=== PATIENT | female | born 1955 | race Caucasian/White ===

== ENCOUNTER → 2017-10-03 12:30 | Outpatient (CLI) | payer OTHER, SELFPAY ==
[2017-10-03 13:17] LABS: Absolute Lymphocyte Count 0.93 X10^3/ul (0.83-4.51); Absolute Neutrophil Count 17.3 X10^3/uL (2.0-7.7); Hematocrit 39.7 % (37-47); Hemoglobin 12.7 g/dl (12.0-15.0); Lymphocyte # 0.93 X10^3/ul (4.0); Lymphocyte % 4.8 % (19-41); Mean Corpuscular Hgb 28.3 pg (27.0-32.0); Mean Corpuscular Volume 88.4 fL (81-99); Mean Platelet Vol. 9.8 fl (6.2-12.0); Monocyte# 0.95 X10^3/uL; Neutrophil # 17.26 X10^3/uL (2.7-7.7); Platelet Count 227 K/mm3 (150-450); RBC Distribution Width CV 13.9 % (11.6-14.6); RBC Distribution Width SD 45.1 fl (35.1-43.9); Red Blood Count 4.49 M/mm3 (4.2-5.4); White Blood Count 19.2 K/mm3 (4.4-11.0)
[2017-10-03 13:18] LABS: POSITIVE COUNT NO; POSITIVE DIFFERENTIAL NO; POSITIVE MORPHOLOGY NO
[2017-10-03 13:32] LABS: ALB/GLOB Ratio 1.1 RATIO (0.9-2.4); AST(SGOT) 19 U/L (15-37); Alanine Aminotransfer ALT/SGPT 26 U/L (13-56); Albumin, Serum 3.9 g/dL (3.2-5.0); Alkaline Phosphatase 75 U/L (45-117); Anion Gap 8 (5-15); BUN 12 mg/dL (7-18); BUN/Creat Ratio 15.7 RATIO (10-20); Calcium,Total 8.9 mg/dL (8.5-10.1); Chloride 104 mmol/L (98-107); Creatinine, Serum 0.76 mg/dL (0.55-1.02); EST Glomerular Filtration Rate 81 mL/min (>60); Est Glom Filt Rate - Afr Amer 98 mL/min (>60); Globulin 3.7 g/dL (2.2-4.2); Glucose 118 mg/dL (74-106); Potassium 4.1 mmol/L (3.5-5.1); Protein, Total 7.6 g/dL (6.4-8.2); Sodium Level 137 mmol/L (136-145)
== END ==
PROVIDERS: Family Provider Family Medicine; PCP Family Medicine; Visit Provider Nurse Practitioner Adult Health
DX: R50.9 Fever, unspecified (principal)
CPT/HCPCS: 36415; 80053; 85025

== ENCOUNTER → 2017-10-03 17:18 | Emergency (ER) | payer OTHER, SELFPAY ==
[2017-10-03] VITALS (7 sets, daily range): BP systolic 111–135; BP diastolic 58–74; PULSE 83–90; RESP 20–30; TEMP 37.1–39.2; O2SAT 96–100; BMI 25.7
--- NOTE | 2017-10-03 17:44 | EKG12_ITS ---
Test Reason : SYNCOPE/POSS SEPSIS Blood Pressure : / mmHG Vent. Rate : 089 BPM Atrial Rate : 089 BPM P-R Int : 152 ms QRS Dur : 074 ms QT Int : 348 ms P-R-T Axes : 061 067 051 degrees QTc Int : 423 ms Normal sinus rhythm Normal ECG Confirmed by ERICA ARIZMENDI, SAVANNAH ([id number]), editorial manager DAVID NIEVES ([id number]) on 10/08/2017 1:37:33 PM Referred By: CODIE Confirmed By:SAVANNAH MALDONADO MD
--- NOTE | 2017-10-03 17:45 | CT_ITS ---
STUDY: CT ABDOMEN AND PELVIS WITH CONTRAST REASON FOR EXAM: Female, 62 years old. ABD PAIN RADIATION DOSAGE (If Supplied By Facility): CTDIvol = ( 11.74 ) mGy, DLP = ( 646.89 ) mGycm TECHNIQUE: Transaxial images were obtained from the dome of the diaphragm to the symphysis pubis with oral contrast. 100 ml of Isovue 300 contrast was administered. Sagittal and coronal images were reconstructed. Individualized dose optimization techniques were used for this CT. COMPARISON: None. FINDINGS: The visualized lung bases are unremarkable. The visualized portions of the heart are within normal limits. There is periportal edema noted. Normal gallbladder and extrahepatic biliary system. Normal spleen. Normal pancreas. Normal bilateral adrenal glands. Normal right kidney. Normal left kidney. Normal visualized stomach. Normal small intestine. Diffuse wall thickening and inflammation of the distal sigmoid colon and rectum. There is inflammatory fluid in the pelvis. Locules of free air visualized in the pelvis. No discrete abscess. There is non-visualization of the appendix. Normal abdominal aorta. Normal inferior vena cava. Normal retroperitoneum. Normal urinary bladder. Normal visualized uterus. Normal abdominal wall. There is endplate spondylosis of the vertebral body. CT/Abdomen/Pelvis WITH Contrast IMPRESSION: Diffuse wall thickening and inflammation of the distal sigmoid colon and rectum. This is consistent for sigmoid diverticulitis. There is inflammatory fluid in the pelvis. Locules of free air visualized in the pelvis. No discrete abscess. Electronically Signed: Gray Coreas MD at 20:43 EDT , Service support ,
--- NOTE | 2017-10-03 17:50 | RAD_ITS ---
STUDY: X-RAY CHEST REASON FOR EXAM: Female, 62 years old. Fever TECHNIQUE: Single AP portable view of the chest. COMPARISON: None. FINDINGS: The lungs are clear and expanded. There is no demonstrated pleural abnormality. Normal size heart. Normal mediastinum and kemar. Normal visualized pulmonary arteries. Normal visualized aortic arch and descending thoracic aorta. Normal visualized thoracic spine. Normal visualized ribs, clavicles, and shoulders. There is no demonstrated abnormality of the visualized soft tissue structures of the upper abdomen. RAD/Chest 1 View (Portable) IMPRESSION: Normal x-ray examination of the chest. Electronically Signed: Gray Coreas MD at 18:32 EDT , Service support ,
--- NOTE | 2017-10-03 18:04 | ED.DCSUM_ITS ---
- ER Visit Summary Date of Service: 10/03/17 Chief Complaint: Abdominal pain History of Present Illness: The patient is a 62 F presenting with abdominal pain which started yesterday. She states she has been dizzy with standing and passed out last night. She denies any injury from this. She went to see her primary care physician today. Outpatient blood work showed a white count of 19.5. She had a temperature up to 100.5. She has lower abdominal pain. Urine dip in the office was negative. She denies chest pain or shortness of breath. She has nausea with no vomiting. Denies diarrhea or constipation. Denies other complaints. Physical Examination: Vitals are stable. Patient is afebrile. Alert no acute distress. HEENT exam is unremarkable. Neck is supple. Lungs are clear and equal bilaterally. Heart is regular rate and rhythm. Abdomen is soft right and left lower quadrant tenderness with no rebound or guarding Extremities are unremarkable. Skin is warm and dry. No focal neurologic deficit. Remainder of exam is unremarkable. Emergency Department Course and Treatment: Patient given IV fluids, morphine, Phenergan, Tylenol. CBC shows white count 21.0. Chemistries unremarkable other than glucose 135. Liver enzymes show total bili 2.2, direct bili 0.45. Lipase is 72. Urinalysis shows ketones. Troponin is negative. Lactic acid is 2.1. Chest x-ray shows no acute process. CT abdomen pelvis shows diffuse wall thickening and inflammation of the distal sigmoid colon and rectum. This is consistent for sigmoid diverticulitis. There is inflammatory fluid in the pelvis. Locules of free air visualized in the pelvis. No discrete abscess. There is periportal edema noted. Discussed with Dr. Hernandez. Due to her elevated total bili and periportal edema she feels that she may need an ERCP as well. This is not available and she suggests transfer to tertiary care center. She was given Zosyn IV. Patient requests [facility]. Discussed with Carsondaniela alberts and she will be transferred. Disposition: Transfer [facility] Impression: Perforated diverticulitis This note was generated with [employer] dictation software. It may contain incorrect words, spelling, and punctuation that were not noted in review of the chart prior to signing ED Disposition - Plan for ED Patient: Chief Complaint: Syncope Referrals: Jojo Ray MD [Primary Care Provider] -
[2017-10-03] MEDS: Acetaminophen 500 MG Tablet 1000 MG PO (18:06)
[2017-10-03] MEDS: proMETHazine 25 MG/ML Syringe 6.25 MG IV (18:07)
[2017-10-03] MEDS: 0.9% Normal Saline 1,000 ML 1000 ML IV (18:07)
[2017-10-03 18:10] LABS: Absolute Lymphocyte Count 0.92 X10^3/ul (0.83-4.51); Absolute Neutrophil Count 18.8 X10^3/uL (2.0-7.7); Basophil# 0.01 X10^3/uL; Eosinophil# 0.01 X10^3/uL; Hematocrit 40.4 % (37-47); Hemoglobin 12.8 g/dl (12.0-15.0); Lymphocyte # 0.92 X10^3/ul (4.0); Lymphocyte % 4.4 % (19-41); Mean Corp Hgb Conc 31.7 g/gl (32-36); Mean Corpuscular Hgb 27.9 pg (27.0-32.0); Mean Platelet Vol. 9.4 fl (6.2-12.0); Monocyte# 1.15 X10^3/uL; Monocyte% 5.5 % (0-10); Neutrophil # 18.83 X10^3/uL (2.7-7.7); Neutrophil % 89.9 % (47-70); Platelet Count 215 K/mm3 (150-450); RBC Distribution Width CV 13.8 % (11.6-14.6); RBC Distribution Width SD 44.6 fl (35.1-43.9); Red Blood Count 4.59 M/mm3 (4.2-5.4)
[2017-10-03 18:20] LABS: POSITIVE COUNT NO; POSITIVE DIFFERENTIAL NO; POSITIVE MORPHOLOGY NO
[2017-10-03 18:39] LABS: AST(SGOT) 16 U/L (15-37); Alanine Aminotransfer ALT/SGPT 25 U/L (13-56); Albumin, Serum 3.7 g/dL (3.2-5.0); Alkaline Phosphatase 72 U/L (45-117); Anion Gap 11 (5-15); BUN 11 mg/dL (7-18); BUN/Creat Ratio 11.9 RATIO (10-20); Bilirubin, Direct 0.45 mg/dL (0.00-0.30); Calcium,Total 8.6 mg/dL (8.5-10.1); Chloride 103 mmol/L (98-107); Creatinine, Serum 0.92 mg/dL (0.55-1.02); EST Glomerular Filtration Rate 65 mL/min (>60); Est Glom Filt Rate - Afr Amer 79 mL/min (>60); Estimated Creatinine Clearance 44.96 ml/min; Globulin 3.9 g/dL (2.2-4.2); Glucose 135 mg/dL (74-106); Lipase 72 U/L (73-393); Potassium 3.8 mmol/L (3.5-5.1); Protein, Total 7.6 g/dL (6.4-8.2); Sodium Level 139 mmol/L (136-145)
--- NOTE | 2017-10-03 18:39 | ED.RN ---
PT REFUSING MORPHINE AT THIS TIME. DRINKING CT CONTRAST WITH NO DIFF OBS.
[2017-10-03 18:40] LABS: Lactic Acid 2.1 mmol/L (0.4-2.0)
[2017-10-03] MEDS: 0.9% Normal Saline 1,000 ML 999 ML IV (19:01)
[2017-10-03 19:20] LABS: Bacteria 0 SEEN /hpf (None Seen); Mucous, Urine 0 SEEN /hpf (<or=2+)
[2017-10-03 19:22] LABS: Color, Urine Yellow (Yellow); Glucose, Dipstick Normal (Normal); Leukocyte Esterase-Dipstick 25 /ul (Negative); Nitrite-Dipstick Negative (Negative); Occult Blood-Urine 10 /ul (Negative); Protein-Dipstick 15 mg/dl (Negative); Specific Gravity, Urine 1.015 (1.002-1.030); Urine Bilirubin Dipstick Negative (Negative); Urine Clarity Sl. Cloudy (Clear); Urine Urobilinogen Normal (Normal)
[2017-10-03 19:24] LABS: Ketone-Dipstick 150 mg/dl (Negative)
[2017-10-03 19:40] LABS: Red Blood Cells-Urine 0-5 SEEN /hpf (0-5); Squamous Epithelial Cells - UA 0-5 SEEN /hpf (5-10); White Blood Cells 0-5 SEEN /hpf (0-5)
[2017-10-03] MEDS: Ciprofloxacin 400 MG/200 ML BAG 200 MG IV (21:41)
[2017-10-03 21:59] LABS: Reflex Lactate? Y
[2017-10-03] MEDS: Morphine 2 MG/ML Syringe IV (22:37)
--- NOTE | 2017-10-03 22:56 | ED.RN ---
PT LEFT ER VIA [facility] AT [id number]. UNABLE TO REMOVE FROM TRACKER
== END ==
PROVIDERS: Emergency Provider Emergency Medicine; Family Provider Family Medicine; PCP Family Medicine
DX: K57.92 Diverticulitis of intestine, part unspecified, without perforation or abscess without bleeding (principal); I10 Essential (primary) hypertension
CPT/HCPCS: 71045; 74177; 80048; 80076; 81001; 83605; 83690; 84484; 85025; 93005; 99284; J7030; Q9967; A4216; J0744

== ENCOUNTER → 2018-07-18 07:27 | Outpatient (CLI) | payer OTHER, SELFPAY ==
--- NOTE | 2018-07-18 07:35 | US_ITS ---
STUDY: ABDOMINAL ULTRASOUND - RIGHT UPPER QUADRANT REASON FOR VISIT: Female, 63 years old. Hepatomegaly. TECHNIQUE: Ultrasound evaluation of the right upper quadrant was performed with real-time and static lundy-scale imaging. TECHNICAL QUALITY: Adequate. COMPARISON: CT of the abdomen and pelvis, October 03, 2017. FINDINGS: Liver: The liver measures 14.8 cm. There is normal echogenicity of the liver. The bile ducts are within normal limits. There is hepatic color flow. The direction of portal flow is hepatopetal. There is no demonstrated mass lesion. Gallbladder: Normal distended gallbladder. The gallbladder wall measures 2.3 mm. There is a negative sonographic Ye's sign. There is no pericholecystic fluid. 4 Common Bile Duct (C.B.D.): The common bile duct measures 4.2 mm. Pancreas: Normal size of the head, body and tail of the pancreas. There is normal echogenicity of the pancreas. There is no demonstrated pancreatic mass or cyst. Right Kidney: Normal size of the right kidney. The right kidney measures 10.0 cm. Normal renal cortex. The right cortex measures 1.3 cm. There is no demonstrated renal mass or cyst. There is no right hydronephrosis. US/Abdomen Limited IMPRESSION: 1. Normal size liver without mass or other abnormality. 2. Gallstones without acute cholecystitis. 3. Otherwise normal right upper quadrant ultrasound. Electronically Signed: Hernandez Wilcox DO at 8:12 EST Tel [phone], Service support ,
== END ==
PROVIDERS: Family Provider Family Medicine; PCP Family Medicine; Referring Provider Family Medicine; Visit Provider Family Medicine
DX: R16.0 Hepatomegaly, not elsewhere classified (principal)
CPT/HCPCS: 76705

== ENCOUNTER → 2019-08-10 14:09 | Outpatient (CLI) | payer OTHER, SELFPAY ==
[2017-10-03 17:19] VITALS: BMI 25.7
[2019-08-10 18:03] LABS: Anion Gap 8 (5-15); BUN 18 mg/dL (7-18); BUN/Creat Ratio 24.8 RATIO (10-20); Calcium,Total 8.9 mg/dL (8.5-10.1); Chloride 106 mmol/L (98-107); Creatinine, Serum 0.73 mg/dL (0.55-1.02); EST Glomerular Filtration Rate 85 mL/min (>60); Est Glom Filt Rate - Afr Amer 103 mL/min (>60); Glucose 69 mg/dL (74-106); Potassium 3.6 mmol/L (3.5-5.1); Sodium Level 140 mmol/L (136-145)
== END ==
PROVIDERS: PCP Family Medicine; Referring Provider Family Medicine; Visit Provider Family Medicine
DX: I10 Essential (primary) hypertension (principal)
CPT/HCPCS: 36415; 80048

== ENCOUNTER 2021-06-22 17:47 | Outpatient (CLI) | payer OTHER, SELFPAY | END 2021-06-22 23:59 | disposition short-term general hospital (02) | PROVIDERS: PCP Family Medicine; Visit Provider Family Medicine | DX: U07.1 COVID-19 (principal) | CPT/HCPCS: 87635; U0003; U0005 ==

== ENCOUNTER 2021-08-22 10:14 | Outpatient (CLI) | payer OTHER, SELFPAY ==
[2021-08-22 12:47] LABS: Anion Gap 6 (5-15); BUN 20 mg/dL (7-18); BUN/Creat Ratio 26.8 RATIO (10-20); Calcium,Total 9.8 mg/dL (8.5-10.1); Chloride 106 mmol/L (98-107); Creatinine, Serum 0.74 mg/dL (0.55-1.02); EST Glomerular Filtration Rate 82 mL/min (>60); Est Glom Filt Rate - Afr Amer 100 mL/min (>60); Glucose 97 mg/dL (74-106); Potassium 4.4 mmol/L (3.5-5.1); Sodium Level 140 mmol/L (136-145)
== END 2021-08-22 23:59 | disposition home or self-care (01) ==
LOC: MFPLAB 10:20
PROVIDERS: PCP Family Medicine; Referring Provider Family Medicine; Visit Provider Family Medicine
DX: I10 Essential (primary) hypertension (principal)
CPT/HCPCS: 36415; 80048

== ENCOUNTER → 2022-07-27 | Outpatient (CLI) | payer OTHER, SELFPAY ==
[2022-07-27 18:04] LABS: Anion Gap 9 (5-15); BUN 21 mg/dL (7-18); BUN/Creat Ratio 24.2 RATIO (10-20); Calcium,Total 9.2 mg/dL (8.5-10.1); Chloride 104 mmol/L (98-107); Creatinine, Serum 0.87 mg/dL (0.55-1.02); EST Glomerular Filtration Rate 69 mL/min (>60); Est Glom Filt Rate - Afr Amer 84 mL/min (>60); Glucose 92 mg/dL (74-106); Potassium 3.7 mmol/L (3.5-5.1); Sodium Level 140 mmol/L (136-145)
== END | disposition home or self-care (01) ==
LOC: MFPLAB 14:34
PROVIDERS: PCP Family Medicine; Visit Provider Family Medicine
DX: I10 Essential (primary) hypertension (principal)
CPT/HCPCS: 36415; 80048

== ENCOUNTER → 2022-10-11 | Outpatient (CLI) | payer OTHER, SELFPAY ==
[2022-10-11 10:38] LABS: AST(SGOT) 14 U/L (15-37); Alanine Aminotransfer ALT/SGPT 19 U/L (13-56); Albumin, Serum 3.8 g/dL (3.2-5.0); Alkaline Phosphatase 77 U/L (45-117); Anion Gap 4 (5-15); BUN 23 mg/dL (7-18); BUN/Creat Ratio 28.8 RATIO (10-20); Calcium,Total 9.3 mg/dL (8.5-10.1); Chloride 109 mmol/L (98-107); EST Glomerular Filtration Rate 76 mL/min (>60); Est Glom Filt Rate - Afr Amer 92 mL/min (>60); Ferritin 73 ng/mL (8-252); Globulin 3.7 g/dL (2.2-4.2); Glucose 100 mg/dL (74-106); Potassium 4.2 mmol/L (3.5-5.1); Protein, Total 7.5 g/dL (6.4-8.2); Sodium Level 141 mmol/L (136-145); Thyroid Stim Hormone (TSH) 1.85 uIU/mL (0.358-3.74)
[2022-10-11 10:44] LABS: Absolute Lymphocyte Count 1.25 X10^3/uL (0.83-4.51); Absolute Neutrophil Count 6.7 X10^3/uL (2.0-7.7); Basophil# 0.02 X10^3/uL; Basophil% 0.2 % (0-1); Eosinophils% 2.3 % (0-5); Hematocrit 42.9 % (37-47); Hemoglobin 13.5 g/dL (12.0-15.0); Lymphocyte # 1.25 X10^3/ul (0.83-4.51); Lymphocyte % 14.4 % (19-41); Mean Corp Hgb Conc 31.5 g/dL (32-36); Mean Corpuscular Hgb 28.6 pg (27.0-32.0); Mean Corpuscular Volume 90.9 fL (81-99); Monocyte# 0.48 X10^3/uL; Monocyte% 5.5 % (0-10); NRBC Flagged by Analyzer 0 % (0-5); Neutrophil % 77.4 % (47-70); Platelet Count 236 K/mm3 (150-450); RBC Distribution Width CV 13.8 % (11.6-14.6); RBC Distribution Width SD 46.9 fl (35.1-43.9); Red Blood Count 4.72 M/mm3 (4.2-5.4); White Blood Count 8.7 K/mm3 (4.4-11.0)
[2022-10-12 04:08] LABS: Thyroid Peroxidase AB 12 IU/mL (0-34)
== END | disposition home or self-care (01) ==
PROVIDERS: PCP Family Medicine; Referring Provider Physician Assistant; Visit Provider Physician Assistant
DX: L66.9 Cicatricial alopecia, unspecified (principal); L57.8 Other skin changes due to chronic exposure to nonionizing radiation; L82.1 Other seborrheic keratosis; L81.4 Other melanin hyperpigmentation; Z08 Encounter for follow-up examination after completed treatment for malignant neoplasm; Z85.828 Personal history of other malignant neoplasm of skin; D18.01 Hemangioma of skin and subcutaneous tissue; Z71.89 Other specified counseling; L90.5 Scar conditions and fibrosis of skin; L57.0 Actinic keratosis; D48.5 Neoplasm of uncertain behavior of skin; L65.9 Nonscarring hair loss, unspecified
CPT/HCPCS: 36415; 80053; 82728; 84443; 85025; 86038; 86376

== ENCOUNTER → 2022-11-30 | Outpatient (CLI) | payer OTHER, SELFPAY ==
--- NOTE | 2022-11-30 09:48 | RAD_ITS ---
STUDY: X-RAY - RIGHT FOOT CLINICAL: Female, 67 years old. Pain over 4th adn 5th MT. injury TECHNIQUE: 3 view(s) of the foot. COMPARISON: None. FINDINGS: Normal talus, calcaneus, and tarsal bones. Normal visualized subtalar, talonavicular, calcaneocuboid, tarsal and tarsometatarsal articulations. There are nondisplaced transverse fracture at the base of the fifth metatarsal. Normal metatarsophalangeal joint of the great toe. Normal tibial and fibular sesamoid bones. Normal interphalangeal joint of the great toe. Normal phalanges of the great toe. Normal second through fifth metatarsophalangeal joints. Normal interphalangeal joints and phalanges of the lesser toes. Soft tissue swelling. RAD/Foot min 3 Views IMPRESSION: Nondisplaced fracture at the base of the fifth metatarsal with overlying soft tissue swelling. Electronically Signed: Ar De La Rosa MD at 11:00 EDT ,
== END | disposition home or self-care (01) ==
LOC: MTRAD 09:48
PROVIDERS: PCP Family Medicine; Referring Provider Family Medicine; Visit Provider Family Medicine
DX: M79.671 Pain in right foot (principal)
CPT/HCPCS: 73630

== ENCOUNTER → 2022-12-03 | Outpatient (CLI) | payer OTHER, SELFPAY ==
[2022-12-03 09:06] LABS: EXAGEN MAILED SPECIMEN
[2022-12-03 10:13] LABS: Color, Urine Yellow (Yellow); Erythrocyte Sedimentation Rate 4 mm/hr (0-30); Glucose, Dipstick Normal (Normal); Ketone-Dipstick Negative (Negative); Leukocyte Esterase-Dipstick 25 /ul (Negative); Nitrite-Dipstick Negative (Negative); Occult Blood-Urine 25 /ul (Negative); Protein-Dipstick Negative (Negative); Specific Gravity, Urine 1.005 (1.002-1.030); Urine Bilirubin Dipstick Negative (Negative); Urine Clarity Clear (Clear); Urine Urobilinogen Normal (Normal)
[2022-12-03 10:16] LABS: Absolute Neutrophil Count 7.1 X10^3/uL (2.0-7.7); Basophil# 0.04 X10^3/uL; Basophil% 0.5 % (0-1); Eosinophil# 0.21 X10^3/uL; Eosinophils% 2.4 % (0-5); Hematocrit 42.2 % (37-47); Hemoglobin 13.5 g/dL (12.0-15.0); Lymphocyte % 11.3 % (19-41); Mean Corpuscular Hgb 28.7 pg (27.0-32.0); Mean Corpuscular Volume 89.6 fL (81-99); Mean Platelet Vol. 10.1 fl (6.2-12.0); Monocyte# 0.51 X10^3/uL; Monocyte% 5.7 % (0-10); NRBC Flagged by Analyzer 0 % (0-5); Neutrophil % 79.9 % (47-70); Platelet Count 221 K/mm3 (150-450); RBC Distribution Width CV 13.3 % (11.6-14.6); RBC Distribution Width SD 44.1 fl (35.1-43.9); Red Blood Count 4.71 M/mm3 (4.2-5.4); White Blood Count 8.9 K/mm3 (4.4-11.0)
[2022-12-03 10:32] LABS: ALB/GLOB Ratio 0.9 RATIO (0.9-2.4); AST(SGOT) 16 U/L (15-37); Alanine Aminotransfer ALT/SGPT 17 U/L (13-56); Albumin, Serum 3.6 g/dL (3.2-5.0); Alkaline Phosphatase 74 U/L (45-117); Anion Gap 5 (5-15); BUN 19 mg/dL (7-18); BUN/Creat Ratio 22.6 RATIO (10-20); CRP < 2.90 mg/L (0.0-3.0); Calcium,Total 9.4 mg/dL (8.5-10.1); Chloride 106 mmol/L (98-107); Creatinine, Serum 0.84 mg/dL (0.55-1.02); EST Glomerular Filtration Rate 71 mL/min (>60); Est Glom Filt Rate - Afr Amer 86 mL/min (>60); Globulin 3.9 g/dL (2.2-4.2); Glucose 104 mg/dL (74-106); Protein, Total 7.5 g/dL (6.4-8.2); Sodium Level 139 mmol/L (136-145)
[2022-12-03 10:46] LABS: Protein, Urine (Random) < 6.0 mg/dL (<11.9)
== END | disposition home or self-care (01) ==
LOC: MTLAB 08:03
PROVIDERS: PCP Family Medicine; Referring Provider Internal Medicine Rheumatology; Visit Provider Internal Medicine Rheumatology
DX: M34.9 Systemic sclerosis, unspecified (principal); R76.8 Other specified abnormal immunological findings in serum; M19.041 Primary osteoarthritis, right hand; L65.9 Nonscarring hair loss, unspecified; I10 Essential (primary) hypertension
CPT/HCPCS: 36415; 80053; 81002; 82570; 84156; 85025; 85652; 86140

== ENCOUNTER → 2022-12-18 | Outpatient (CLI) | payer OTHER, SELFPAY ==
--- NOTE | 2022-12-18 07:58 | ECHOD_ITS ---
Reason For Study: Scleroderma, HTN Procedure This was a 2D Doppler, Color Flow transthoracic echocardiogram. Exam performed in department. Left Ventricle Normal LV size. Left ventricular systolic function is normal. The estimated ejection fraction is 60 %. No regional wall motion abnormalities noted. Right Ventricle Normal RV size. Normal systolic function. Atria Normal left atrium. Normal right atrium. Bubble contrast study negative for right to left interatrial shunt. Mitral Valve Normal mitral valve. Tricuspid Valve Normal tricuspid valve. Mild tricuspid valve insufficiency. Pulmonary artery systolic pressure is 22 mmHg. Aortic Valve Normal aortic valve. Trisinus/trileaflet aortic valve. Pulmonic Valve Normal pulmonic valve. Great Vessels Normal aortic root. The pulmonary artery is normal size. Normal inferior vena cava. Pericardium/Pleural No pericardial effusion. Medication 20 gauge I.V. with prn adaptor inserted into right arm. Performed a rapid injection of agitated mix of 9 cc saline and 1cc air to assess for atrial septal defect. MMode/2D Measurements & Calculations LVIDd: 4.2 cm IVSd: 0.98 cm Ao root diam: 2.7 cm LVIDs: 2.3 cm LVPWd: 0.91 cm LA dimension: 3.0 cm RVDd: 3.0 cm FS: 45.3 % LAV(MOD-bp): 45.4 ml LVAd ap4: 22.3 cm2 SV(MOD-sp4): 38.7 ml LAV(MOD-bp) Indexed: 30.2 ml/m2 LVLd ap4: 6.7 cm LAV(MOD-sp2): 45.0 ml EDV(MOD-sp4): 61.8 ml LAV(MOD-sp4): 42.3 ml EDV(sp4-el): 63.1 ml LVAs ap4: 12.0 cm2 LVLs ap4: 5.4 cm ESV(MOD-sp4): 23.1 ml ESV(sp4-el): 22.7 ml EF(MOD-sp4): 62.6 % EF(sp4-el): 64.0 % SV(sp4-el): 40.4 ml LA A4 area: 15.6 cm2 RA A4 area: 14.9 cm2 Time Measurements MV dec time: 0.23 sec Doppler Measurements & Calculations MV E max devonte: 66.7 cm/sec Lat Peak E' Devonte: 6.0 cm/sec Med Peak E' Devonte: 8.2 cm/sec MV A max devonte: 94.8 cm/sec E/E' lat: 11.2 E/E' med: 8.1 MV E/A: 0.70 MV V2 max: 135.7 cm/sec MV P1/2t max devonte: 91.8 cm/sec Ao V2 max: 136.8 cm/sec MV max P.4 mmHg MV P1/2t: 91.7 msec Ao max P.5 mmHg MV V2 mean: 61.3 cm/sec Ao V2 mean: 91.5 cm/sec MV mean P.9 mmHg MV dec slope: 293.3 cm/sec2 Ao mean P.9 mmHg MV V2 VTI: 40.3 cm MVA(P1/2t): 2.4 cm2 Ao V2 VTI: 33.3 cm AV (velocity ratio): 0.77 LV V1 max: 101.9 cm/sec PA V2 max: 106.8 cm/sec TR max devonte: 222.5 cm/sec LV V1 max P.2 mmHg PA V2 mean: 68.4 cm/sec TR max P.8 mmHg LV V1 mean P.4 mmHg LV V1 mean: 72.9 cm/sec LV V1 VTI: 25.7 cm ECHO/Echo Complete Interpretation Summary Normal LV size. Left ventricular systolic function is normal. The estimated ejection fraction is 60 %. Bubble contrast study negative for right to left interatrial shunt. Pulmonary artery systolic pressure is 22 mmHg. Ordering Physician: Suzy Lozano Referring Physician: Jojo Ray M.D. Performed By: Oleksandr Denise RCS
== END | disposition home or self-care (01) ==
LOC: CVS 07:57
PROVIDERS: PCP Family Medicine; Referring Provider Internal Medicine Rheumatology; Visit Provider Internal Medicine Rheumatology
DX: M34.9 Systemic sclerosis, unspecified (principal); I10 Essential (primary) hypertension
CPT/HCPCS: 93306; A4216

== ENCOUNTER → 2023-01-01 | Outpatient (CLI) | payer OTHER, SELFPAY ==
--- NOTE | 2023-01-01 14:22 | RAD_ITS ---
INDICATION: fu fracture EXAMINATION/TECHNIQUE: X-RAY - RIGHT XR Foot Min 3 Views 3 VIEWS COMPARISON: Right foot x-rays 11/30/2022 FINDINGS: BONES: Fracture at the base of the fifth metatarsal is not significantly changed. No displacement. No new fracture. Plantar calcaneal spur. JOINTS: No dislocation. SOFT TISSUES: Unremarkable. RAD/Foot min 3 Views IMPRESSION: Fracture base of the fifth metatarsal stable alignment. Electronically Signed: Carito Rowland MD at 4:04 EDT ,
== END | disposition home or self-care (01) ==
LOC: MTRAD 14:21
PROVIDERS: PCP Family Medicine; Referring Provider Family Medicine; Visit Provider Family Medicine
DX: S92.301A Fracture of unspecified metatarsal bone(s), right foot, initial encounter for closed fracture (principal); X58.XXXA Exposure to other specified factors, initial encounter
CPT/HCPCS: 73630

== ENCOUNTER → 2023-01-16 | Outpatient (CLI) | payer OTHER, SELFPAY ==
--- NOTE | 2023-01-16 09:35 | RAD_ITS ---
INDICATION: fu fracture EXAMINATION/TECHNIQUE: X-RAY - RIGHT XR Foot Min 3 Views 3 VIEWS COMPARISON: Right foot x-ray from 01/01/2023, 12/10/2022 FINDINGS: Redemonstration of nondisplaced fracture of the fifth metatarsal base with persistent fracture lines and no significant change from prior study. Persistent mild soft tissue swelling along the fifth digit. No new or acute findings. RAD/Foot min 3 Views IMPRESSION: No significant change in appearance of nondisplaced fifth metatarsal base fracture. Electronically Signed: Erik Rosales DO at 10:41 EDT ,
== END | disposition home or self-care (01) ==
PROVIDERS: PCP Family Medicine; Referring Provider Family Medicine; Visit Provider Family Medicine
DX: S92.353A Displaced fracture of fifth metatarsal bone, unspecified foot, initial encounter for closed fracture (principal)
CPT/HCPCS: 73630

== ENCOUNTER → 2023-04-30 | Outpatient (CLI) | payer OTHER, SELFPAY ==
[2023-04-30 17:26] LABS: Color, Urine Yellow (Yellow); Glucose, Dipstick Normal (Normal); Ketone-Dipstick Negative (Negative); Leukocyte Esterase-Dipstick 25 /ul (Negative); Nitrite-Dipstick Negative (Negative); Occult Blood-Urine Negative /ul (Negative); Protein-Dipstick Negative (Negative); Specific Gravity, Urine 1.015 (1.002-1.030); Urine Bilirubin Dipstick Negative (Negative); Urine Clarity Clear (Clear); Urine Urobilinogen Normal (Normal)
[2023-04-30 17:32] LABS: Absolute Lymphocyte Count 1.36 X10^3/uL (0.83-4.51); Absolute Neutrophil Count 6.4 X10^3/uL (2.0-7.7); Basophil# 0.03 X10^3/uL; Basophil% 0.3 % (0-1); Eosinophil# 0.24 X10^3/uL; Eosinophils% 2.8 % (0-5); Hematocrit 42.6 % (37-47); Lymphocyte # 1.36 X10^3/ul (0.83-4.51); Lymphocyte % 15.8 % (19-41); Mean Corp Hgb Conc 30.5 g/dL (32-36); Mean Corpuscular Hgb 28.2 pg (27.0-32.0); Mean Corpuscular Volume 92.4 fL (81-99); Mean Platelet Vol. 9.6 fl (6.2-12.0); Monocyte# 0.56 X10^3/uL; Monocyte% 6.5 % (0-10); NRBC Flagged by Analyzer 0 % (0-5); Neutrophil % 74.4 % (47-70); Platelet Count 247 K/mm3 (150-450); RBC Distribution Width SD 47.5 fl (35.1-43.9); Red Blood Count 4.61 M/mm3 (4.2-5.4); White Blood Count 8.6 K/mm3 (4.4-11.0)
[2023-04-30 17:36] LABS: Protein, Urine (Random) 7.8 mg/dL (<11.9); Protein:Creat Ratio 129 mg/g CRE (0-200)
[2023-04-30 18:15] LABS: AST(SGOT) 14 U/L (15-37); Alanine Aminotransfer ALT/SGPT 19 U/L (13-56); Albumin, Serum 3.8 g/dL (3.2-5.0); Alkaline Phosphatase 81 U/L (45-117); Anion Gap 2 (5-15); BUN 15 mg/dL (7-18); BUN/Creat Ratio 18.8 RATIO (10-20); Calcium,Total 9.2 mg/dL (8.5-10.1); Chloride 106 mmol/L (98-107); EST Glomerular Filtration Rate 76 mL/min (>60); Est Glom Filt Rate - Afr Amer 92 mL/min (>60); Globulin 3.9 g/dL (2.2-4.2); Glucose 102 mg/dL (74-106); Potassium 3.8 mmol/L (3.5-5.1); Protein, Total 7.7 g/dL (6.4-8.2); Sodium Level 139 mmol/L (136-145)
== END | disposition home or self-care (01) ==
LOC: MTLAB 14:50
PROVIDERS: PCP Family Medicine; Referring Provider Internal Medicine Rheumatology; Visit Provider Internal Medicine Rheumatology
DX: M34.9 Systemic sclerosis, unspecified (principal); R76.8 Other specified abnormal immunological findings in serum
CPT/HCPCS: 36415; 80053; 81002; 82570; 84156; 85025

== ENCOUNTER → 2023-09-06 | Outpatient (CLI) | payer OTHER, SELFPAY ==
[2023-09-06 12:57] LABS: Creatinine, Urine (random) < 13.00 mg/dL (NO RANGE EST.); Protein, Urine (Random) < 6.0 mg/dL (<11.9)
== END | disposition home or self-care (01) ==
LOC: MFPLAB 09:43
PROVIDERS: PCP Family Medicine; Visit Provider Family Medicine
DX: I10 Essential (primary) hypertension (principal)
CPT/HCPCS: 82570; 84156

== ENCOUNTER → 2023-10-07 | Outpatient (CLI) | payer OTHER, SELFPAY ==
--- NOTE | 2023-10-07 07:48 | BI_ITS ---
MAMMOGRAPHY - BILATERAL SCREENING REASON FOR EXAM: Female, 68 years old. Routine annual screening examination. PERTINENT HISTORY: Non-contributory. TECHNIQUE: Digital bilateral breast goran (3D mammographic acquisition) in the CC and MLO projections. 2-D mediolateral oblique (MLO) and craniocaudad (CC) views of both breasts were obtained. CAD: Full Field Digital Mammography with Computer Added Detection was performed. COMPARISON: Comparison is made with prior study August 13, 2016 and August 09, 2014. FINDINGS: Breast Composition: There are scattered areas of fibroglandular density. There are no dominant masses or suspicious calcifications. No other significant abnormalities are identified. There has been no significant change since the prior study. BI/SCRN MAMM (CAD)W/GORAN BILAT IMPRESSION: Stable bilateral screening mammogram. Yearly follow-up mammogram recommended. (A) ASSESSMENT CATEGORY: BIRADS Category 1: Negative. A letter regarding these results will be sent to the patient by the facility within 30 days. Approximately 10% of breast cancers are not detected by mammography. A normal mammogram should not delay biopsy of a clinically suspicious abnormality. [id number] Electronically Signed: Ar De La Rosa MD at 9:01 EDT ,
== END | disposition home or self-care (01) ==
LOC: OPBI 07:48
PROVIDERS: PCP Family Medicine; Referring Provider Family Medicine; Visit Provider Family Medicine
DX: Z12.31 Encounter for screening mammogram for malignant neoplasm of breast (principal)
CPT/HCPCS: 77063; 77067

== ENCOUNTER → 2023-11-18 | Outpatient (CLI) | payer OTHER, SELFPAY ==
--- NOTE | 2023-11-18 11:45 | RAD_ITS ---
STUDY: X-RAY - LEFT FOOT CLINICAL: Female, 68 years old. Left foot injury. TECHNIQUE: 3 views of the left foot. COMPARISON: None. FINDINGS: Intact talus, calcaneus, and tarsal bones. There is a plantar calcaneal spur. 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 Normal visualized subtalar, calcaneocuboid, tarsal and tarsometatarsal articulations. Normal metatarsi. Normal metatarsophalangeal joint of the great toe. Normal tibial and fibular sesamoid bones. Normal interphalangeal joint of the great toe. Normal phalanges of the great toe. Normal second through fifth metatarsophalangeal joints. Normal interphalangeal joints and phalanges of the lesser toes. The soft tissue structures are unremarkable. There is no demonstrated fracture. RAD/Foot min 3 Views IMPRESSION: Talonavicular arthrosis. Plantar calcaneal spur. Electronically Signed: Aristides Mejia MD at 10:16 EDT ,
== END | disposition home or self-care (01) ==
PROVIDERS: PCP Family Medicine; Referring Provider Family Medicine; Visit Provider Family Medicine
DX: M79.672 Pain in left foot (principal)
CPT/HCPCS: 73630

== ENCOUNTER → 2024-01-07 | Outpatient (CLI) | payer OTHER, SELFPAY ==
--- NOTE | 2024-01-07 14:46 | ECHOD_ITS ---
Reason For Study: Systemic Sclerosis Procedure This was a 2D Doppler, Color Flow transthoracic echocardiogram. Exam performed in department. Left Ventricle Normal LV size. The left ventricular ejection fraction is 65 %. Stage 1 diastolic dysfunction. No regional wall motion abnormalities noted. Right Ventricle Normal RV size. Normal systolic function. Atria Normal left atrium. Normal right atrium. Mitral Valve Normal mitral valve. Tricuspid Valve Normal tricuspid valve. Mild (1+) tricuspid valve insufficiency. Pulmonary artery systolic pressure is 26 mmHg. Aortic Valve Trisinus/trileaflet aortic valve. Pulmonic Valve Normal pulmonic valve. Great Vessels Normal aortic root. The pulmonary artery is normal size. Inferior vena cava collapse with respiration. Pericardium/Pleural No pericardial effusion. MMode/2D Measurements & Calculations LVIDd: 4.0 cm IVSd: 0.88 cm Ao root diam: 2.8 cm LVIDs: 2.3 cm LVPWd: 1.0 cm RVDd: 2.9 cm FS: 41.2 % LAV(MOD-bp): 30.1 ml LVAd ap4: 19.7 cm2 SV(MOD-sp4): 31.7 ml LAV(MOD-bp) Indexed: 20.1 ml/m2 LVLd ap4: 6.7 cm LAV(MOD-sp2): 37.1 ml EDV(MOD-sp4): 47.8 ml LAV(MOD-sp4): 24.6 ml EDV(sp4-el): 49.0 ml LVAs ap4: 9.9 cm2 LVLs ap4: 5.3 cm ESV(MOD-sp4): 16.2 ml ESV(sp4-el): 15.6 ml EF(MOD-sp4): 66.2 % EF(sp4-el): 68.2 % SV(sp4-el): 33.4 ml LA A4 area: 12.4 cm2 LA dimension(2D): 3.2 cm RA A4 area: 14.1 cm2 TAPSE: 3.3 cm Time Measurements MV dec time: 0.28 sec Doppler Measurements & Calculations MV E max devonte: 85.3 cm/sec Lat Peak E' Devonte: 8.5 cm/sec Med Peak E' Devonte: 8.9 cm/sec MV A max devonte: 104.4 cm/sec E/E' lat: 10.0 E/E' med: 9.6 MV E/A: 0.82 Ao V2 max: 189.0 cm/sec LV V1 max: 130.6 cm/sec MV dec slope: 309.9 cm/sec2 Ao max P.3 mmHg LV V1 max P.8 mmHg Ao V2 mean: 123.0 cm/sec LV V1 mean P.5 mmHg Ao mean P.1 mmHg LV V1 mean: 86.1 cm/sec Ao V2 VTI: 40.2 cm LV V1 VTI: 28.0 cm AV (velocity ratio): 0.70 PA V2 max: 85.5 cm/sec TR max devonte: 239.6 cm/sec TR max P.0 mmHg ECHO/Echo Complete Interpretation Summary Normal LV size. The left ventricular ejection fraction is 65 %. Stage 1 diastolic dysfunction. Structurally normal valves. Ordering Physician: Suzy Lozano Referring Physician: Jojo Ray Performed By: Priti Freeman, MILLA, RVT
[2024-01-07 15:59] LABS: Mucous, Urine 0 SEEN /hpf (<or=2+); Red Blood Cells-Urine 0 SEEN /hpf (0-5)
[2024-01-07 16:22] LABS: Absolute Lymphocyte Count 1.34 X10^3/uL (0.83-4.51); Absolute Neutrophil Count 8.6 X10^3/uL (2.0-7.7); Basophil# 0.02 X10^3/uL; Basophil% 0.2 % (0-1); Eosinophil# 0.14 X10^3/uL; Eosinophils% 1.3 % (0-5); Hemoglobin 13.1 g/dL (12.0-15.0); Lymphocyte # 1.34 X10^3/ul (0.83-4.51); Lymphocyte % 12.5 % (19-41); Mean Corp Hgb Conc 31.2 g/dL (32-36); Mean Corpuscular Hgb 27.9 pg (27.0-32.0); Mean Corpuscular Volume 89.4 fL (81-99); Mean Platelet Vol. 9.3 fl (6.2-12.0); Monocyte# 0.61 X10^3/uL; Monocyte% 5.7 % (0-10); NRBC Flagged by Analyzer 0 % (0-5); Neutrophil # 8.58 X10^3/uL (2.7-7.7); Neutrophil % 79.7 % (47-70); Platelet Count 238 K/mm3 (150-450); RBC Distribution Width CV 13.6 % (11.6-14.6); RBC Distribution Width SD 44.8 fl (35.1-43.9); White Blood Count 10.8 K/mm3 (4.4-11.0)
[2024-01-07 16:23] LABS: Color, Urine Yellow (Yellow); Glucose, Dipstick Normal (Normal); Ketone-Dipstick Negative (Negative); Leukocyte Esterase-Dipstick 100 /ul (Negative); Nitrite-Dipstick Negative (Negative); Occult Blood-Urine Negative /ul (Negative); Protein-Dipstick Negative (Negative); Specific Gravity, Urine 1.015 (1.002-1.030); Urine Bilirubin Dipstick Negative (Negative); Urine Clarity Clear (Clear); Urine Urobilinogen Normal (Normal)
[2024-01-07 16:35] LABS: Bacteria 2+ /hpf (None Seen)
[2024-01-07 16:36] LABS: Squamous Epithelial Cells - UA 0-5 SEEN /hpf (5-10); White Blood Cells 0-5 SEEN /hpf (0-5)
[2024-01-07 16:39] LABS: Protein, Urine (Random) 7.5 mg/dL (<11.9); Protein:Creat Ratio 196 mg/g CRE (0-200)
[2024-01-07 17:05] LABS: AST(SGOT) 15 U/L (15-37); Alanine Aminotransfer ALT/SGPT 19 U/L (13-56); Albumin, Serum 3.7 g/dL (3.2-5.0); Alkaline Phosphatase 82 U/L (45-117); Anion Gap 5 (5-15); BUN 17 mg/dL (7-18); BUN/Creat Ratio 21.3 RATIO (10-20); Calcium,Total 9.3 mg/dL (8.5-10.1); Chloride 106 mmol/L (98-107); EST Glomerular Filtration Rate 76 mL/min (>60); Est Glom Filt Rate - Afr Amer 92 mL/min (>60); Globulin 3.8 g/dL (2.2-4.2); Glucose 122 mg/dL (74-106); Protein, Total 7.5 g/dL (6.4-8.2); Sodium Level 140 mmol/L (136-145)
== END | disposition home or self-care (01) ==
PROVIDERS: PCP Family Medicine; Referring Provider Internal Medicine Rheumatology; Visit Provider Internal Medicine Rheumatology
DX: M34.9 Systemic sclerosis, unspecified (principal); R76.8 Other specified abnormal immunological findings in serum; M19.041 Primary osteoarthritis, right hand; L65.9 Nonscarring hair loss, unspecified; I10 Essential (primary) hypertension
CPT/HCPCS: 36415; 80053; 81001; 82570; 84156; 85025; 93306

== ENCOUNTER → 2024-08-17 | Outpatient (CLI) | payer MEDICARE, SELFPAY ==
[2024-08-17 10:28] LABS: Color, Urine Yellow (Yellow); Glucose, Dipstick Normal (Normal); Ketone-Dipstick Negative (Negative); Leukocyte Esterase-Dipstick 500 /ul (Negative); Nitrite-Dipstick Negative (Negative); Occult Blood-Urine 10 /ul (Negative); Protein-Dipstick 15 mg/dl (Negative); Specific Gravity, Urine 1.025 (1.002-1.030); Urine Bilirubin Dipstick Negative (Negative); Urine Clarity Clear (Clear); Urine Urobilinogen Normal (Normal)
[2024-08-17 10:39] LABS: Absolute Lymphocyte Count 1.26 X10^3/uL (0.83-4.51); Absolute Neutrophil Count 5.3 X10^3/uL (2.0-7.7); Basophil# 0.02 X10^3/uL; Basophil% 0.3 % (0-1); Eosinophil# 0.31 X10^3/uL; Eosinophils% 4.2 % (0-5); Hematocrit 42.3 % (37-47); Lymphocyte # 1.26 X10^3/ul (0.83-4.51); Mean Corp Hgb Conc 30.7 g/dL (32-36); Mean Corpuscular Hgb 27.7 pg (27.0-32.0); Mean Corpuscular Volume 90.2 fL (81-99); Mean Platelet Vol. 9.9 fl (6.2-12.0); Monocyte# 0.47 X10^3/uL; Monocyte% 6.4 % (0-10); NRBC Flagged by Analyzer 0 % (0-5); Neutrophil # 5.29 X10^3/uL (2.7-7.7); Neutrophil % 71.4 % (47-70); Platelet Count 250 K/mm3 (150-450); RBC Distribution Width CV 13.9 % (11.6-14.6); RBC Distribution Width SD 45.9 fl (35.1-43.9); Red Blood Count 4.69 M/mm3 (4.2-5.4); White Blood Count 7.4 K/mm3 (4.4-11.0)
[2024-08-17 15:32] LABS: ALB/GLOB Ratio 1.5 RATIO (0.9-2.4); AST(SGOT) 17 U/L (<=31); Alanine Aminotransfer ALT/SGPT 10 U/L (<=34); Albumin, Serum 4.2 g/dL (3.4-4.8); Alkaline Phosphatase 81 U/L (35-104); Anion Gap 12 (5-15); BUN 19 mg/dL (4-19); BUN/Creat Ratio 23.7 RATIO (10-20); Calcium,Total 9.1 mg/dL (7.6-11.0); Carbon Dioxide 23.1 mmol/L (21.0-32.0); Chloride 106 mmol/L (98-108); EST Glomerular Filtration Rate 79 (>60); Globulin 2.9 g/dL (2.2-4.2); Glucose 99 mg/dL (70-99); Potassium 4.5 mmol/L (3.3-5.1); Protein, Total 7.1 g/dL (5.9-8.4); Sodium Level 141 mmol/L (133-145); Total Bilirubin 0.62 mg/dL (0.00-1.30)
[2024-08-17 19:27] LABS: Protein, Urine (Random) 9.1 mg/dL (0.0-12.0); Protein:Creat Ratio 79 mg/g CRE (0-200)
== END | disposition home or self-care (01) ==
PROVIDERS: PCP Family Medicine; Referring Provider Internal Medicine Rheumatology; Visit Provider Internal Medicine Rheumatology
DX: M34.9 Systemic sclerosis, unspecified (principal); R76.8 Other specified abnormal immunological findings in serum
CPT/HCPCS: 36415; 80053; 81002; 82570; 84156; 85025

== ENCOUNTER → 2024-11-02 | Outpatient (CLI) | payer MEDICARE, SELFPAY ==
--- OUTSIDE RECORDS SUMMARY | 2024-11-02 22:52 | XMS RPT_ITS | CCD ---
Author Organization [facility] CliniSymd Care Team Providers Care Grinding Operator Name Role Phone LEUKHARDT, SANDRO H Unavailable Unavailable LEUKHARDT, SANDRO H Unavailable Unavailable MUAKKASSA, FARID DARVIN Unavailable Unavailabl e Jojo Ray Unavailable Unavailable LEUKHARDT, SANDRO H Unavailable Unavailable LEUKHARDT, SANDRO H Unavailable Unavailable MUAKKASSA, FARID F Unavailable Unavailable Roberto, Shelia Unavailable Unavailable Jojo Ray Unavailable Unavailable Dr. Jojo Ray Primary Care Provider Dr. Sandoval Egan Attending Provider Dr. Suzy Lozano Referring Provider Dr. Jojo Ray Primary Care Provider Dr. Sandoval Egan Attending Provider Dr. Jojo Ray Primary Care Provider Dr. Sandoval Egan Attending Provider Dr. Jojo Ray MD Primary Care Provider Dr. Suzy Lozano MD Attending Provider Dr. Suzy Lozano MD Referring Provider Dr. Jojo Ray MD Referring Provider Marisol Martin Attending Provider Jojo Ray Primary Care Unavailable Sandoval Egan Attending Unavailable Jojo Ray Primary Care Unavailable Ignacio Argueta Attending Unavailable Ignacio Argueta Referring Unavailable Jojo Ray Primary Care Unavailable Jolliff, Jojo S Referring Unavailable Roof Harry ARAUJO Attending Unavailable Marisol Nassar Attending Unavailable Jojo Ray Referring Unavailable Jojo Ray Primary Care Unavailable Jojo Ray Primary Care Unavailable Suzy Lozano Attending Unavailable Suzy Lozano Referring Unavailable Jojo Ray Primary Care Unavailable Suzy Lozano Attending Unavailable Suzy Lozano Referring Unavailable Allergies Allergy Classification Reported Allergen(s) Allergy Type Date of Onset Reaction(s) Facility (14 sources) amoxicillin; Translations: [AMOXICILLIN] Drug Allergy 10-03-2017 [facility], Rash [facility] Repository (14 sources) codeine; Translations: [CODEINE] Drug Allergy 10-03-2017 [facility], Unknown [facility] (14 sources) ibuprofen; Translations: [IBUPROFEN] Drug Allergy 10-03-2017 [facility], Swelling [facility] Medications Current Medications Medication Drug Class(es) Dates Sig (Normalized) Sig (Original) benazepril hydrochloride 20 mg / hydroCHLOROthiazide 12.5 mg oral tablet (11 sources) Thiazide Diuretic, Angiotensin Converting Enzyme Inhibitor Start: 10-03-2017 Benazepril-Hydroc hlorothiazide (Lotensin Hct 20-12.5 Mg Tablet) 1 EACH tablet Active 1 NMA PO DAILY October 03, 2017 12:00am calcium carbonate 1250 mg oral tablet (11 sources) Start: 10-03-2017 Calcium Carbonate (Os-Arash 500) 500 MG tablet Active 500 mg PO TWICE DAILY WITH MEALS October 03, 2017 12:00am doxycycline monohydrate 100 mg oral capsule (1 source) Tetracycline-cla ss Drug Start: 10-31-2024 take 1 capsule by mouth twice daily Doxycycline Monohydrate 100 mg capsule Active 100 mg PO TWICE A DAY 14 7 October 31, 2024 12:00am November 06, 2024 12:00am Multivitamin (Multiple Vitamins) 1 EACH tablet (11 sources) Start: 10-03-2017 take 1 tablet by mouth once daily Multivitamin (Multiple Vitamins) 1 EACH tablet Active 1 EACH PO DAILY October 03, 2017 5:35pm Start: 10-03-2017 take 1 tablet by ford th once daily Multivitamin (Multiple Vitamins) 1 EACH tablet Active 1 NMA PO DAILY October 03, 2017 12:00am Start: 10-03-2017 take 1 tablet by ford th once daily Multivitamin (Multiple Vitamins) 1 EACH tablet Active 1 EACH PO DAILY October 03, 2017 12:00am Start: 10-03-2017 take 1 tablet by ford th once daily Multivitamin (Multiple Vitamins) 1 EACH tablet Active 1 EACH PO DAILY October 02, 2017 11:00pm Completed/Discontinued Medications Medication Drug Class(es) Dates Sig (Normalized) Sig (Original) azithromycin 250 mg oral tablet (2 sources) Macrolide Antimicrobial Start: 04-05-2024 End: 10-31-2024 Azithromycin (Zithromax Z-Lyle) 250 mg tablet Discontinued 0 PO .COMPLEX 6 April 05, 2024 1:00am October 31, 2024 9:26am For 250 mg dose pack: take 500 mg today (day 1), then 250 mg for 4 days (days 2-5) PO Suprep Bowel Prep Kit 17.5-3.13-1.6 GM/177ML Oral Solution (2 sources) Start: 08-05-2019 Suprep Bowel Prep Kit 17.5-3.13-1.6 GM/177ML Oral Solution USE DIRECTED. Quantity: 2 Refills: 0 Shelia Mejia DO Start : 05-Aug-2019 Active 177 ML Bottle Problems Active Problems Problem Classification Problem Date Documented Date Episodic/Chronic Diverticulosis and diverticulitis (2 sources) Diverticulitis of large intestine with perforation and abscess without bleeding; Translations: [Diverticulitis of large intestine with perforation and abscess without bleeding] Onset: 10-04-2017 Chronic Other and unspecified benign neoplasm (2 sources) History of polyp of colon; Translations: [History of colon polyps] Episodic Skin and subcutaneous tissue infections (3 sources) Cellulitis; Translations: [Cellulitis, unspecified] Onset: 10-31-2024 10-31-2024 Episodic Systemic lupus erythematosus and connective tissue disorders (1 source) Systemic sclerosis, unspecified; Translations: [Systemic sclerosis, unspecified] Onset: 08-22-2024 Chronic Unclassified (1 source) Unknown / UNK(Unknown) Onset: 10-04-2017 Past or Other Problems Problem Classification Problem Date Documented Da te Episodic/Chronic Other connective tissue disease (1 source) Pain in left foot; Translations: [Pain in left foot] Onset: 11-22-2023 Episodic Other upper respiratory infections (3 sources) Upper respiratory infection; Translations: [Acute upper respiratory infection, unspecified] Onset: 04-05-2024 04-05-2024 Episodic Results Test Name Value Interpretation Reference Range Facility Urgent Care Visit Reporton 0 10-31-2024 Urgent Care Visit Report [facility] [address], [address] [place] [address] OFFICE VISIT Date of Service: 10/31/24 MR#: [id number] Acct: [id number] Name: LISSETH SANDHU Rep #: [id number] : 1955 Provider: LUIS Nassar Age/Sex: 69/F Location: [facility] Status: Signed Intake Vital Signs 04/05/24 09:27 10/31/24 09:28 Height 5 ft Weight: 117 lb BMI 22.8 BP 122/62 H 120/76 Blood Pressure Location Lt brachial Position Sitting Sitting Respiration 16 Pulse 97 67 Pulse Source Monitor Temp 97.7 F L 98.3 F Temp Source Oral Pulse Oximetry (%) 98 96 Oxygen Delivery Method room air room air Intake Visit Reasons: L LEG WOUND/CONCERN FOR INFECTION Accompanied by: Self Allergies amoxicillin Allergy (Verified 10/31/24 09:31) Rash codeine Allergy (Verified 10/31/24 09:31) Unknown ibuprofen Allergy (Verified 10/31/24 09:31) Swelling Medications ???Medication ???Instructions ???Recorded ???Confirmed ???Type benazepril 20 1 ea PO DAILY 10/03/17 04/05/24 Hi story mg-hydrochlorothiazide 12.5 mg tablet (Lotensin HCT) calcium carbonate (Oyster Shell 500 mg PO BIDCM 10/03/17 04/05/24 History Calcium 500) multivitamin (Multiple Vitamins 1 ea PO DAILY 10/03/17 04/05/24 Hi story tablet) doxycycline monohydrate 100 mg 100 mg PO BID 7 days #14 caps 12/1810/31/24 Rx capsule Have you fallen in the past year?: No Nurse's Note: Patient has a left leg wound that happen couple weeks ago. Patient states that she was mowing and her leg his a A frame wooden thing and that is what cut her leg. Patient states its hurts sometimes and it has drainage she can tell when she changes the bandaide and that its red and the end of the day it will be swollen. [facility] Social History Smoking Status: Never smoker HPI HPI Details: LISSETH SANDHU, is a 69 F who presents to the office today for leg wound -left leg- couple weeks ago- on rider mower- frame of swing set got to close to it and ran into the wood -red, drainage, swollen, painful -no fever or chills -tried so far otc atb ointment- aquaphor -not diabetic ROS Const Constitutional: Positive for other (ROS negative x6 except what was placed in HPI) Exam Const General: cooperative, healthy appearing, comfortable, no acute distress and well groomed Orientation: alert and oriented x3 Skin Other: -left anterior johnson with lidia size wound with clear to yellow drainage- very scant amount- scabbing noted around the edges. Surrounding tissue bright pink and warm -culture taken- then cleassed with normal saline, applied bacitracin oint and bandaid - tolerated fair Coding Level of Care Code Off vis,est,level 3 Diagnoses Cellulitis of left lower extremity L03.116 Laterality: left Site of cellulitis: extremity Site of cellulitis of extremity: lower extremity Assessment and Plan Assessment and Plan (1) Cellulitis: Status: Acute Qualifiers: Laterality: left Site of cellulitis: extremity Site of cellulitis of extremity: lower extremity Qualified Code(s): L03.116 - Cellulitis of left lower limb Plan: -take full course of atb even if feeling better- to prevent GI upset/yeast infection eat a yogurt daily or take an otc probiotic -keep clean and dry Please follow up with your Primary Care Physician for ongoing chronic problems. If symptoms change or worsen, please present to Emergency Room for further evaluation 1. See visit diagnoses, disposition, and orders. 2. Reviewed and updated medication list; Discussed probable diagnosis, test results if available in office today and management options with patient/guardian: agreed to the medical plan above 3. Education provided regarding visit today, see after visit summary. Instruction provided in the use of fluids, vaporizer, acetaminophen, and/or other OTC medication for symptom control. Explained use of antibiotics only for proven or strongly suspected bacterial infections. 4. Prevention and health maintenance with primary care provider. 5. Patient/guardian educated to proceed to ED with worsening of condition, changes, or failure to improve. Medications: New doxycycline monohydrate 100 mg PO BID 14 caps 0RF 7 days Clinical Quality Measures Falls Risk Screening/Assistive Devices Have you fallen in the past year?: No 10/31/24 0947 Date Marisol Nassar MOLDING CUTTER-C Cosigner Signature: Date (if applicable) CC: Normal [facility] Absolute lymphocyte countOrd ered By: Suzy Lozano on 08-17-2024 Lymphocytes Auto (Unsp spec) [#/Vol] 1.26 10*3/uL 0.83-4.51 [facility] Absolute neutrophil countOrd ered By: Suzy Lozano on 08-17-2024 Neutrophils (Bld) [#/Vol] 5.3 10*3/uL 2.0-7.7 [facility] Anion gap in Serum or Plasma Ordered By: Suzy Lozano on 08-17-2024 Anion gap [Moles/Vol] 12 mmol/L 5-15 [facility] Automated lymphocyte count a s percentage of total leukocytesOrdered By: Suzy Lozano on 08-17-2024 Lymphocytes/100 WBC Auto (Unsp spec) 17.0 % Low 19-41 [facility] BUN/creatinine ratioOrdered By: Suzy Lozano on 08-17-2024 Urea nitrogen/Creatinine [Mass ratio] 23.7 mg/mg High 10-20 [facility] Basophil percentageOrdered B y: Suzy Lozano on 08-17-2024 Basophils/100 WBC (Bld) 0.3 % 0-1 [facility] Bilirubin Test strip Ql (U)O rdered By: Suzy Lozano on 08-17-2024 Bilirubin Ql (U) Negative Negative [facility] Bilirubin, totalOrdered By: Suzy Lozano on 08-17-2024 Bilirubin [Mass/Vol] 0.62 mg/dL 0.00-1.30 [facility] CBC W/Diff, Automatedon 07-26 Absolute Lymph 1.26 X10 3/uL Normal 0.83-4.51 [facility] Comment on above: Performed By: #### L 500.4050, L501.0900, L4, L100.0100 #### [facility] Laboratory [address] [place], [address] Absolute Neut 5.3 X10 3/uL Normal 2.0-7.7 [facility] Comment on above: Performed By: #### L 500.4050, L501.09, L4, L100.0100 #### [facility] [address] [place], [address] Basophils/100 WBC (Bld) 0.3 % Normal 0-1 [facility] Comment on above: Performed By: #### L 500.4050, L501.09, L4, L100.0100 #### [facility] [address] [place], [address] Eosinophils/100 WBC (Bld) 4.2 % Normal 0-5 [facility] Comment on above: Performed By: #### L 500.4050, L501.09, L4, L100.0100 #### [facility] [address] [place], [address] Erythrocyte distribution width (RBC) [Ratio] 13.9 % Normal 11.6-14.6 [facility] Comment on above: Performed By: #### L 500.4050, L501.0900, L4, L100.0100 #### [facility] [address] [place], [address] Hematocrit (Bld) [Volume fraction] 42.3 % Normal 37-47 [facility] Comment on above: Performed By: #### L 500.4050, L501.0900, L4, L100.0100 #### [facility] [address], [address] Hemoglobin (Bld) [Mass/Vol] 13.0 g/dL Normal 12.0-15.0 [facility] Comment on above: Performed By: #### L 500.4050, L501.09, , L100.0100 #### [facility] [address] [place], [address] IG% 0.700 Normal 0.0-0.9 [facility] Comment on above: Result Comment: IG% - Immature Granulocytes (promyelocytes, myelocytes and metamyelocytes) > 1% indicates that a LEFT SHIFT is Present. Performed By: #### L 500.4050, L5.09, , L100.0100 #### [facility] [address] [place], [address] Lymphocytes/100 WBC (Bld) 17.0 % Low 19-41 [facility] Comment on above: Performed By: #### L 500.4050, L501.09, , L100.0100 #### [facility] [address] [place], [address] MCH (RBC) [Entitic mass] 27.7 pg Normal 27.0-32.0 [facility] Comment on above: Performed By: #### L 500.4050, L501.0900, L4, L100.0100 #### [facility] [address] [place], [address] MCHC (RBC) [Mass/Vol] 30.7 g/dL Low 32-36 [facility] Comment on above: Performed By: #### L 500.4050, L501.09, , L100.0100 #### [facility] [address] [place], [id number] MCV (RBC) [Entitic vol] 90.2 fL Normal 81-99 [facility] Comment on above: Performed By: #### L 500.4050, L501.0900, L400.2010, L100.0100 #### [facility] [address] [place], [id number] Monocytes/100 WBC (Bld) 6.4 % Normal 0-10 [facility] Comment on above: Performed By: #### L 500.4050, L501.0900, L4.2010, L100.0100 #### [facility] [address] [place], [id number] Neutrophils/100 WBC (Bld) 71.4 % High 47-70 [facility] Comment on above: Performed By: #### L 500.4050, L501.09, L4, L100.0100 #### [facility] [address] [place], [id number] Nucleated RBC (Bld) [#/Vol] 0 10*3/uL Normal 0-5 [facility] Comment on above: Performed By: #### L 500.4050, L501.0900, L400.2010, L100.0100 #### [facility] [address] [place], [id number] Platelet mean volume (Bld) [Entitic vol] 9.9 fL Normal 6.2-12.0 [facility] Comment on above: Performed By: #### L 500.4050, L501.0900, L400.2010, L100.0100 #### [facility] [address] [place], [id number] Platelets (Bld) [#/Vol] 250 10*3/uL Normal 150-450 [facility] Comment on above: Performed By: #### L 500.4050, L501.0900, L4, L100.0100 #### [facility] [address] [place], [address] RBC (Bld) [#/Vol] 4.69 10*6/uL Normal 4.2-5.4 [facility] Comment on above: Performed By: #### L 500.4050, L501.0900, L4.2010, L100.0100 #### [facility] [address] [place], [address] RDW SD 45.9 fl High 35.1-43.9 [facility] Comment on above: Performed By: #### L 500.4050, L501.0900, L4, L100.0100 #### [facility] [address] [place], [address] WBC (Bld) [#/Vol] 7.4 10*3/uL Normal 4.4-11.0 [facility] Comment on above: Performed By: #### L 500.4050, L501.09, L4, L100.0100 #### [facility] [address] [place], [address] Carbon dioxide, total [Moles /volume] in Central venous bloodOrdered By: Suzy Lozano on 08-17-2024 CO2 [Moles/Vol] 23.1 mmol/L 21.0-32.0 [facility] Chloride assayOrdered By: Som Lozano on 08-17-2024 Chloride [Moles/Vol] 106 mmol/L 98-108 [facility] Comprehensive Metabolic Prof ilon 08-17-2024 Albumin [Mass/Vol] 4.2 g/dL Normal 3.4-4.8 [facility] Comment on above: Performed By: #### L 500.4050, L501.0900, L4, L100.0100 ####[facility] [address] [place], [address] Albumin/Globulin [Mass ratio] 1.5 {ratio} Normal 0.9-2.4 [facility] Comment on above: Performed By: #### L 500.4050, L501.0900, L4, L100.0100 ####[facility] [address] [place], [address] ALK PHOS 81 U/L Normal 35-104 [facility] Comment on above: Performed By: #### L 500.4050, L501.09, L4, L100.0100 ####[facility] [address] [place], [address] ALT [Catalytic activity/Vol] 10 U/L Normal <=34 [facility] Comment on above: Performed By: #### L 500.4050, L501.09, , L100.0100 ####[facility] [address] [place], [address] AST [Catalytic activity/Vol] 17 U/L Normal <=31 [facility] Comment on above: Performed By: #### L 500.4050, L501.09, , L100.0100 ####[facility] [address] [place], [address] Bilirubin [Mass/Vol] 0.62 mg/dL Normal 0.00-1.30 [facility] Comment on above: Performed By: #### L 500.4050, L501.0900, L4, L100.0100 ####[facility] [address] [place], [address] BUN/CRE 23.7 RATIO High 10-20 [facility] Comment on above: Performed By: #### L 500.4050, L501.0900, L4, L100.0100 ####[facility] [address] [place], [address] Calcium [Mass/Vol] 9.1 mg/dL Normal 7.6-11.0 [facility] Comment on above: Performed By: #### L 500.4050, L501.0900, L400.2010, L100.0100 ####[facility] [address] [place], [address] Chloride [Moles/Vol] 106 mmol/L Normal 98-108 [facility] Comment on above: Performed By: #### L 500.4050, L501.0900, L400.2010, L100.0100 ####[facility] [address] [place], [address] CO2 [Moles/Vol] 23.1 mmol/L Normal 21.0-32.0 [facility] Comment on above: Performed By: #### L 500.4050, L501.0900, L4.2010, L100.0100 ####[facility] [address] [place], [address] Creatinine [Mass/Vol] 0.80 mg/dL Normal 0.70-1.20 [facility] Comment on above: Performed By: #### L 500.4050, L501.0900, L400.2010, L100.0100 ####[facility] [address] [place], [address] GAP 12 Normal 5-15 [facility] Comment on above: Performed By: #### L 500.4050, L501.0900, L400.2010, L100.0100 ####[facility] [address] [place], [address] GFR/1.73 sq M.predicted among non-blacks MDRD (S/P/Bld) [Vol rate/Area] 79 mL/min/{1.73_m2} Normal >60 [facility] Comment on above: Result Comment: mL/m in/1.73m2 CKD-EPI Creatinine Equation (2020) Performed By: #### L 500.4050, L501.09, L4, L100.0100 ####[facility] [address] [place], [address] Globulin (S) [Mass/Vol] 2.9 g/dL Normal 2.2-4.2 [facility] Comment on above: Performed By: #### L 500.4050, L5.09, , L100.0100 ####[facility] [address] [place], [address] Glucose [Mass/Vol] 99 mg/dL Normal 70-99 [facility] Comment on above: Performed By: #### L 500.4050, L5.09, , L100.0100 ####[facility] [address] [place], [address] Potassium [Moles/Vol] 4.5 mmol/L Normal 3.3-5.1 [facility] Comment on above: Performed By: #### L 500.4050, L5.899, , L100.0100 ####[facility] [address] [place], [address] Sodium [Moles/Vol] 141 mmol/L Normal 133-145 [facility] Comment on above: Performed By: #### L 500.4050, L501.09, L4, L100.0100 ####[facility] [address] [place], [address] T PROT 7.1 g/dL Normal 5.9-8.4 [facility] Comment on above: Performed By: #### L 500.4050, L501.0900, L4, L100.0100 ####[facility] [address] [place], [address] Urea nitrogen [Mass/Vol] 19 mg/dL Normal 4-19 [facility] Comment on above: Performed By: #### L 500.4050, L501.0900, L400.2011, L100.0100 ####[facility] [address] [place], [address] Creatinine Unsp time (U) [Ma ss/Vol]Ordered By: Suzy Lozano on 08-17-2024 Creatinine (U) [Mass/Vol] 115.00 mg/dL 28 .00-217. 00 [facility] Eosinophil percentageOrdered By: Suzy Lozano on 08-17-2024 Eosinophils/100 WBC (Bld) 4.2 % 0-5 [facility] Erythrocyte distribution wid th ratioOrdered By: Suzy Lozano on 08-17-2024 Erythrocyte distribution width (RBC) [Ratio] 13.9 % 11.6-14.6 [facility] Erythrocyte distribution wid th standard deviationOrdered By: Suzy Lozano on 08-17-2024 Erythrocyte distribution width (RBC) [Entitic vol] 45.9 fL High 35.1-43.9 [facility] Erythrocyte distribution width (RBC) [Ratio] 45.9 fl High 35.1-43.9 [facility] GFR/1.73 sq M.predicted scott g non-blacks MDRD (S/P/Bld) [Vol rate/Area]Ordered By: Suzy Lozano on 08-17-2024 Estimated GFR (MDRD) Non-Af Amer 79 >60 [facility] Comment on above: mL/min/1.73m2 CKD-EP I Creatinine Equation (2020) Glomerular filtration rate ( GFR) estimation/1.73 sq m using serum, plasma, or whole bOrdered By: Suzy Lozano on 08-17-2024 GFR/1.73 sq M.predicted among non-blacks MDRD (S/P/Bld) [Vol rate/Area] 79 mL/min/{1.73_m2} >60 [facility] Comment on above: mL/min/1.73m2 CKD-EP I Creatinine Equation (2020) Glucose Ql (U)Ordered By: Som Lozano on 08-17-2024 Urine Glucose (UA) Normal mg/dl Normal [facility] Hematocrit Auto (Bld) [Volum e fraction]Ordered By: Suzy Lozano on 08-17-2024 Hematocrit (Bld) [Volume fraction] 42.3 % 37-47 [facility] Hemoglobin measurementOrdere d By: Suzy Lozano on 08-17-2024 Hemoglobin (Bld) [Mass/Vol] 13.0 g/dL 12.0-15.0 [facility] Immature granulocytes/100 WB C Auto (Bld)Ordered By: Suzy Lozano on 08-17-2024 Immature granulocytes/100 WBC (Bld) 0.700 % 0.0-0.9 [facility] Comment on above: IG% - Immature Granu locytes (promyelocytes, myelocytes and metamyelocytes) > 1% indicates that a LEFT SHIFT is Present. Ketones Test strip Ql (U)Ord ered By: Suzy Lozano on 08-17-2024 Ketones Ql (U) Negative Negative [facility] Laboratory - Chemistry and C hemistry - challengeOrdered By: Suzy Lozano on 08-17-2024 AST [Catalytic activity/Vol] 17 U/L <32 [facility] Lymphocytes Auto (Unsp spec) [#/Vol]Ordered By: Suzy Lozano on 08-17-2024 Lymphocytes (Bld) [#/Vol] 1.26 10*3/uL 0.83-4.5 1 [facility] Lymphocytes/100 WBC Auto (Un sp spec)Ordered By: Suzy Lozano on 08-17-2024 Lymphocytes/100 WBC (Bld) 17.0 % Low 19-41 [facility] MCV (mean corpuscular volume ) determinationOrdered By: Suzy Lozano on 08-17-2024 MCV (RBC) [Entitic vol] 90.2 fL 81-99 [facility] Mean corpuscular hemoglobin (MCH) determinationOrdered By: Suzy Lozano on 08-17-2024 MCH (RBC) [Entitic mass] 27.7 pg 27.0-32.0 [facility] Mean corpuscular hemoglobin concentration (MCHC) determinationOrdered By: Suzy Lozano on 08-17-2024 MCHC (RBC) [Mass/Vol] 30.7 g/dL Low 32-36 [facility] Mean platelet volume determi nationOrdered By: Suzy Lozano on 08-17-2024 Platelet mean volume (Bld) [Entitic vol] 9.9 fL 6.2-12.0 [facility] Monocyte percentageOrdered B y: Suzy Lozano on 08-17-2024 Monocytes/100 WBC (Bld) 6.4 % 0-10 [facility] Neutrophil percentageOrdered By: Suzy Lozano on 08-17-2024 Neutrophils/100 WBC (Bld) 71.4 % High 47-70 [facility] Nitrite Test strip Ql (U)Ord ered By: Suzy Lozano on 08-17-2024 Nitrite Ql (U) Negative Negative [facility] Nucleated red blood cell per centageOrdered By: Suzy Lozano on 08-17-2024 Nucleated RBC/100 WBC (Bld) [Ratio] 0 % 0-5 [facility] Platelet countOrdered By: Som Lozano on 08-17-2024 Platelets (Bld) [#/Vol] 250 10*3/uL 150-450 [facility] Potassium (Unsp spec) [Mass/ Vol]Ordered By: Suzy Lozano on 08-17-2024 Potassium [Moles/Vol] 4.5 mmol/L 3.3-5.1 [facility] Potassium measurement (mass/ volume)Ordered By: Suzy Lozano on 08-17-2024 Potassium (Unsp spec) [Mass/Vol] 4.5 mmol/L 3.3-5.1 [facility] Protein Test strip Ql (U)Ord ered By: Suzy Lozano on 08-17-2024 Protein Ql (U) 15 mg/dl High Negative [facility] Protein+Creatinine Ratio,Uri neon 08-17-2024 PROT:CRE RATIO 79 mg/g CRE Normal 0-200 [facility] Comment on above: Performed By: #### L 500.4050, L501.0900, L400.2011, L100.0100 ####[facility] [id number] [place], [address] Protein (U) [Mass/Vol] 9.1 mg/dL Normal 0.0-12.0 [facility] Comment on above: Performed By: #### L 500.4050, L501.0900, L400.2011, L100.0100 ####[facility] [id number] [place], [address] Protein/Creatinine (U) [Mass ratio]Ordered By: Suzy Lozano on 08-17-2024 Urine Protein/Creatinine Ratio 79 mg/g CRE 0-200 [facility] RBC Auto (Bld) [#/Vol]Ordere d By: Suzy Lozano on 08-17-2024 RBC (Bld) [#/Vol] 4.69 10*6/uL 4.2-5.4 [facility] Random urine creatinine tiffany urement (mass/volume)Ordered By: Suzy Lozano on 08-17-2024 Creatinine Unsp time (U) [Mass/Vol] 115.00 mg/dL 28.00-217. 00 [facility] Serum creatinine measurement (mass/volume)Ordered By: Suzy Lozano on 08-17-2024 Creatinine [Mass/Vol] 0.80 mg/dL 0.70-1.20 [facility] Serum globulin measurementOr dered By: Suzy Lozano on 08-17-2024 Globulin (S) [Mass/Vol] 2.9 g/dL 2.2-4.2 [facility] Serum glucose measurement (m ass/volume)Ordered By: Suzy Lozano on 08-17-2024 Glucose [Mass/Vol] 99 mg/dL 70-99 [facility] Serum or plasma alanine denton otransferase (ALT) measurementOrdered By: Suzy Lozano on 08-17-2024 ALT [Catalytic activity/Vol] 10 U/L <35 [facility] Serum or plasma albumin tiffany urement (mass/volume)Ordered By: Suzy Lozano on 08-17-2024 Albumin [Mass/Vol] 4.2 g/dL 3.4-4.8 [facility] Serum or plasma albumin/glob ulin mass ratioOrdered By: Suzy Lozano on 08-17-2024 Albumin/Globulin [Mass ratio] 1.5 {ratio} 0.9-2.4 [facility] Serum or plasma alkaline sarahy sphatase measurementOrdered By: Suzy Lozano on 08-17-2024 ALP [Catalytic activity/Vol] 81 U/L 35-104 [facility] Serum or plasma calcium tiffany urement (mass/volume)Ordered By: Suzy Lozano on 08-17-2024 Calcium [Mass/Vol] 9.1 mg/dL 7.6-11.0 [facility] Serum or plasma urea nitroge n measurement (mass/volume)Ordered By: Suzy Lozano on 08-17-2024 Urea nitrogen [Mass/Vol] 19 mg/dL 4-19 [facility] Sodium levelOrdered By: Arthur Lozano on 08-17-2024 Sodium [Moles/Vol] 141 mmol/L 133-145 [facility] Total proteinOrdered By: Elise Lozano on 08-17-2024 Protein [Mass/Vol] 7.1 g/dL 5.9-8.4 [facility] Urinalysis, Routine (Dipstic k)on 08-17-2024 BILIRUBIN URINE Negative Normal Negative [facility] Comment on above: Order Comment: Urine , Random Performed By: #### L 500.4050, L501.09, L4, L100.0100 #### [facility] Laboratory [address] [place], [place], [address] Clarity (U) Clear Normal Clear [facility] Comment on above: Order Comment: Urine , Random Performed By: #### L 500.4050, L501.0900, L400, L100.0100 #### [facility] [address] [place], [address] Color (U) Yellow Normal Yellow [facility] Comment on above: Order Comment: Urine , Random Performed By: #### L 500.4050, L501.0900, L4, L100.0100 #### [facility] [address] [place], [address] GLUCOSE, UR Normal Normal Normal [facility] Comment on above: Order Comment: Urine , Random Performed By: #### L 500.4050, L501.0900, L400.2010, L100.0100 #### [facility] [address] [place], [address] KETONE UR Negative Normal Negative [facility] Comment on above: Order Comment: Urine , Random Performed By: #### L 500.4050, L501.0900, L400.2010, L100.0100 #### [facility] [address] [place], [address] LEUK ESTERASE 500 /ul Abnormal Negative [facility] Comment on above: Order Comment: Urine , Random Performed By: #### L 500.4050, L501.0900, L4.2010, L100.0100 #### [facility] [address] [place], [address] Nitrite Ql (U) Negative Normal Negative [facility] Comment on above: Order Comment: Urine , Random Performed By: #### L 500.4050, L501.0900, L400.2010, L100.0100 #### [facility] [address] [place], [address] OCCULT BLOOD-UR 10 /ul Abnormal Negative [facility] Comment on above: Order Comment: Urine , Random Performed By: #### L 500.4050, L501.0900, L400.2010, L100.0100 #### [facility] [address] [place], [address] pH UR 5.0 Normal 5.0 - 8.0 [facility] Comment on above: Order Comment: Urine , Random Performed By: #### L 500.4050, L501.0900, L400.2010, L100.0100 #### [facility] [address] [place], [address] PROT DIPSTX 15 mg/dl Abnormal Negative [facility] Comment on above: Order Comment: Urine , Random Performed By: #### L 500.4050, L501.0900, L400.2010, L100.0100 #### [facility] Laboratory [address] [place], [address] SP.GR. DIPSTX 1.025 Normal 1.002-1.03 0 [facility] Comment on above: Order Comment: Urine , Random Performed By: #### L 500.4050, L501.0900, L400.2010, L100.0100 #### [facility] [address] [place], [address] UROBILI Normal Normal Normal [facility] Comment on above: Order Comment: Urine , Random Performed By: #### L 500.4050, L501.0900, L400.2010, L100.0100 #### [facility] [address] [place], [address] Urine blood detectionOrdered By: Suzy Lozano on 08-17-2024 Urine Occult Blood 10 /ul High Negative [facility] Urine clarityOrdered By: Elise Lozano on 08-17-2024 Clarity (U) Clear Clear [facility] Urine color determinationOrd ered By: Suzy Lozano on 08-17-2024 Color (U) Yellow Yellow [facility] Urine glucose detectionOrder ed By: Suzy Lozano on 08-17-2024 Glucose Ql (U) Normal mg/dl Normal [facility] Urine leukocyte esterase det ection by dipstickOrdered By: Suzy Lozano on 08-17-2024 Leukocyte esterase Test strip Ql (U) 500 /ul High Negative [facility] Urine pHOrdered By: Suzy richards on 08-17-2024 pH (U) 5.0 [pH] 5.0 - 8.0 [facility] Urine protein measurement (m ass/volume)Ordered By: Suzy Lozano on 08-17-2024 Protein (U) [Mass/Vol] 9.1 mg/dL 0.0-12.0 [facility] Urine protein/creatinine mas s ratioOrdered By: Suzy Lozano on 08-17-2024 Protein/Creatinine (U) [Mass ratio] 79 mg/g CRE 0-200 [facility] Urine specific gravity measu rementOrdered By: Suzy Lozano on 08-17-2024 Specific gravity (U) [Rel density] 1.025 1.002-1.03 0 [facility] Urine urobilinogen measureme ntOrdered By: Suzy Lozano on 08-17-2024 Urobilinogen Ql (U) Normal mg/dl Normal [facility] Urobilinogen Ql (U)Ordered B y: Suzy Lozano on 08-17-2024 Urine Urobilinogen Normal mg/dl Normal [facility] White blood cell (WBC) count Ordered By: Suzy Lozano on 08-17-2024 WBC (Bld) [#/Vol] 7.4 10*3/uL 4.4-11.0 [facility] Urgent Care Visit Reporton 1 06-05-2023 Urgent Care Visit Report [facility] [address], [address] [place] [address] OFFICE VISIT Date of Service: 04/05/24 MR#: [id number] Acct: [id number] Name: LISSETH SANDHU Rep #: [id number] : 1955 Provider: LUIS conteh Age/Sex: 69/F Location: [facility] Status: Signed Intake Vital Signs 10/03/17 17:19 04/05/24 09:27 Height 5 ft 5 ft Weight: 117 lb BMI 22.8 BP 122/62 H Blood Pressure Location Lt brachial Position Sitting Respiration 16 Pulse 97 Pulse Source Monitor Temp 97.7 F L Pulse Oximetry (%) 98 Oxygen Delivery Method room air Intake Visit Reasons: FEVER/COUGH/ST 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 Accompanied by: Self Is patient in pain?: No Allergies amoxicillin Allergy (Verified 04/05/24 09:28) Rash codeine Allergy (Verified 04/05/24 09:28) Unknown ibuprofen Allergy (Verified 04/05/24 09:28) Swelling Medications ???Medication ???Instructions ???Recorded ???Confirmed ???Type benazepril 20 1 ea PO DAILY 10/03/17 04/05/24 History mg-hydrochlorothiazide 12.5 mg tablet (Lotensin HCT) calcium carbonate (Oyster Shell 500 mg PO BIDCM 10/03/17 04/05/24 History Calcium 500) multivitamin (Multiple Vitamins 1 ea PO DAILY 10/03/17 04/05/24 History tablet) azithromycin 250 mg tablet See Rx Instructions PO .COMPLEX #6 04/05/24 04/05/24 Rx (Zithromax Z-Lyle) tabs Have you fallen in the past year?: No PFSH Social History Smoking Status: Never smoker HPI HPI Chief Complaint: ST COUGHING FEVER Details: LISSETH SANDHU, is a 69 F who presents to the office today for concerns regarding ongoing cough, fever, and sore throat. This has been ongoing for a week. Her temperature started yesterday at 101. She has taken OTC medication including Tylenol. She feels her symptoms are worsening. She states known sick contacts. She has not recevied Flu or COVID-19 vaccination. ROS Const Constitutional: Positive for fever(s), headache(s) (small) and change in appetite (less yesterday); No body ache, chills, fatigue or snoring Eyes Eyes: No blurry vision, change in vision, double vision, irritation, discharge, vision loss, dry eyes, bulging eyes, floaters, visual disturbances, eye pain, Light sensitivity, spots in vision, tunnel vision or other ENT ENT: Positive for nasal congestion, nasal discharge (clear), headache(s) (small), hoarseness and sore throat; No abnormal hearing, ear or mastoid pain, ear discharge, ear pressure, hearing loss, tinnitus, dizziness/vertigo, balance problems, nosebleed/epistaxis, nose pain, sinus pressure, sinus pain, post nasal drip, facial pain, dental pain, difficulty swallowing, bad breath, lip swelling, mouth lesions, mouth pain, neck pain, tongue swelling or throat swelling Resp Respiratory: Positive for cough Cough: Yes productive and change in phlegm color (cloudy, clear); No chest congestion, hemoptysis, pain on inspiration, shortness of breath, pain with cough, snoring, stridor or wheezing Cardio Cardiology: No chest pain at rest, chest pain with exertion, shortness of breath, dyspnea on exertion or lightheadedness Gastro GI: No abdominal pain, change in bowel habits, constipation, diarrhea, difficulty swallowing, nausea/dyspepsia or vomiting Genitourinary-Female: No burning urination or urinary frequency Musc Musculoskeletal: No joint pain or neck pain Skin Skin: No rash Neuro Neurology: Positive for headache(s) (small); No abnormal hearing or visual disturbances Psych Psychiatric: Positive for change in appetite (less yesterday) Endo Endocrine: No fatigue Aller/Imm Allergy/Immunologic: No lip swelling, throat swelling, tongue swelling or wheezing Exam Const General: cooperative, healthy appearing, comfortable and no acute distress Orientation: alert, awake and oriented x3 HENMT Head: normal to inspection and normocephalic Ears: hearing grossly normal bilaterally, external ears normal and TM's normal bilaterally Nose: external nose normal, nares normal and no nasal discharge Face and sinus: normal facial exam and sinuses nontender Mouth: oral mucosae normal, lip normal, tongue normal, oropharynx normal and moist mucous membranes Throat: posterior oropharynx normal, tonsils normal, uvula midline and no postnasal drainage Eyes General: appearance normal, both eyes and all related structures Neck Neck: normal visual inspection and no lymphadenopathy Carotids: normal carotid upstroke Lymphatic: no lymphadenopathy noted Chest Chest palpation inspection: normal inspection of the chest Resp Effort Inspection: normal respiratory effort, able to speak in complete sentences, symmetric chest movement, no cough and no stridor Auscultation: (more content not included)... Normal [facility] CBC W/Diff, Automatedon 12-25 Absolute Lymph 1.34 X10 3/uL Normal 0.83-4.51 [facility] Comment on above: Performed By: #### L 100.0100, L501.0900, L500.4050, L400.0001 #### [facility] Laboratory [address] [place], [address] Absolute Neut 8.6 X10 3/uL High 2.0-7.7 [facility] Comment on above: Performed By: #### L 100.0100, L501.0900, L500.4050, L400.0001 #### [facility] [address] [place], [address] Basophils/100 WBC (Bld) 0.2 % Normal 0-1 [facility] Comment on above: Performed By: #### L 100.0100, L501.0900, L500.4050, L400.0001 #### [facility] [address] [place], [address] Eosinophils/100 WBC (Bld) 1.3 % Normal 0-5 [facility] Comment on above: Performed By: #### L 100.0100, L501.0900, L500.4050, L400.0001 #### [facility] [address] [place], [address] Erythrocyte distribution width (RBC) [Ratio] 13.6 % Normal 11.6-14.6 [facility] Comment on above: Performed By: #### L 100.0100, L501.0900, L500.4050, L400.0001 #### [facility] [address] [place], [address] Hematocrit (Bld) [Volume fraction] 42.0 % Normal 37-47 [facility] Comment on above: Performed By: #### L 100.0100, L501.0900, L500.4050, L400.0001 #### [facility] [address] [place], [address] Hemoglobin (Bld) [Mass/Vol] 13.1 g/dL Normal 12.0-15.0 [facility] Comment on above: Performed By: #### L 100.0100, L501.0900, L500.4050, L400.0001 #### [facility] [address] [place], [address] IG% 0.600 Normal 0.0-0.9 [facility] Comment on above: Result Comment: IG% - Immature Granulocytes (promyelocytes, myelocytes and metamyelocytes) > 1% indicates that a LEFT SHIFT is Present. Performed By: #### L 100.0100, L501.0900, L500.4050, L400.0001 #### [facility] [address] [place], [address] Lymphocytes/100 WBC (Bld) 12.5 % Low 19-41 [facility] Comment on above: Performed By: #### L 100.0100, L501.0900, L500.4050, L400.0001 #### [facility] [address] [place], [address] MCH (RBC) [Entitic mass] 27.9 pg Normal 27.0-32.0 [facility] Comment on above: Performed By: #### L 100.0100, L501.0900, L500.4050, L400.0001 #### [facility] [address] [place], [address] MCHC (RBC) [Mass/Vol] 31.2 g/dL Low 32-36 [facility] Comment on above: Performed By: #### L 100.0100, L501.0900, L500.4050, L400.0001 #### [facility] [address] [place], [address] MCV (RBC) [Entitic vol] 89.4 fL Normal 81-99 [facility] Comment on above: Performed By: #### L 100.0100, L501.0900, L500.4050, L400.0001 #### [facility] [address] [place], [address] Monocytes/100 WBC (Bld) 5.7 % Normal 0-10 [facility] Comment on above: Performed By: #### L 100.0100, L501.0900, L500.4050, L400.0001 #### [facility] [address] [place], [address] Neutrophils/100 WBC (Bld) 79.7 % High 47-70 [facility] Comment on above: Performed By: #### L 100.0100, L501.0900, L500.4050, L400.0001 #### [facility] [address] [place], [address] Nucleated RBC (Bld) [#/Vol] 0 10*3/uL Normal 0-5 [facility] Comment on above: Performed By: #### L 100.0100, L501.0900, L500.4050, L400.0001 #### [facility] [address] [place], [address] Platelet mean volume (Bld) [Entitic vol] 9.3 fL Normal 6.2-12.0 [facility] Comment on above: Performed By: #### L 100.0100, L501.0900, L500.4050, L400.0001 #### [facility] [address] [place], [address] Platelets (Bld) [#/Vol] 238 10*3/uL Normal 150-450 [facility] Comment on above: Performed By: #### L 100.0100, L501.0900, L500.4050, L400.0001 #### [facility] [address] [place], [address] RBC (Bld) [#/Vol] 4.70 10*6/uL Normal 4.2-5.4 [facility] Comment on above: Performed By: #### L 100.0100, L501.0900, L500.4050, L400.0001 #### [facility] [address] [place], [address] RDW SD 44.8 fl High 35.1-43.9 [facility] Comment on above: Performed By: #### L 100.0100, L501.0900, L500.4050, L400.0001 #### [facility] [address] [place], [id number] WBC (Bld) [#/Vol] 10.8 10*3/uL Normal 4.4-11.0 [facility] Comment on above: Performed By: #### L 100.0100, L501.0900, L500.4050, L400.0001 #### [facility] [address] [place], [id number] Comprehensive Metabolic Prof alon 01-07-2024 Albumin [Mass/Vol] 3.7 g/dL Normal 3.2-5.0 [facility] Comment on above: Performed By: #### L 100.0100, L501.0900, L500.4050, L400.0001 #### [facility] [address] [place], [id number] Albumin/Globulin [Mass ratio] 1.0 {ratio} Normal 0.9-2.4 [facility] Comment on above: Performed By: #### L 100.0100, L501.0900, L500.4050, L400.0001 #### [facility] [address] [place], [id number] ALK P 82 U/L Normal 45-117 [facility] Comment on above: Performed By: #### L 100.0100, L501.0900, L500.4050, L400.0001 #### [facility] [address] [place], [id number] ALT [Catalytic activity/Vol] 19 U/L Normal 13-56 [facility] Comment on above: Performed By: #### L 100.0100, L501.0900, L500.4050, L400.0001 #### [facility] [address] [place], [address] AST [Catalytic activity/Vol] 15 U/L Normal 15-37 [facility] Comment on above: Performed By: #### L 100.0100, L501.0900, L500.4050, L400.0001 #### [facility] [address] [place], [address] Bilirubin [Mass/Vol] 0.70 mg/dL Normal 0.20-1.00 [facility] Comment on above: Result Comment: For patients on eltrombopag therapy, use of Dimension Burdine TBIL is not recommended. Performed By: #### L 100.0100, L501.0900, L500.4050, L400.0001 #### [facility] [address] [place], [address] BUN/CRE 21.3 RATIO High 10-20 [facility] Comment on above: Performed By: #### L 100.0100, L501.0900, L500.4050, L400.0001 #### [facility] [address] [place], [address] CA,Total 9.3 mg/dL Normal 8.5-10.1 [facility] Comment on above: Performed By: #### L 100.0100, L501.0900, L500.4050, L400.0001 #### [facility] [address] [place], [address] Chloride [Moles/Vol] 106 mmol/L Normal 98-107 [facility] Comment on above: Performed By: #### L 100.0100, L501.0900, L500.4050, L400.0001 #### [facility] [address] [place], [address] CO2 [Moles/Vol] 29.0 mmol/L Normal 21.0-32.0 [facility] Comment on above: Performed By: #### L 100.0100, L501.0900, L500.4050, L400.0001 #### [facility] [address] [place], [address] Creatinine [Mass/Vol] 0.80 mg/dL Normal 0.55-1.02 [facility] Comment on above: Result Comment: The validity of the calculated GFR GFRAA in patients over 70 years has not been determined. Clinical correlation is essential. Performed By: #### L 100.0100, L501.0900, L500.4050, L400.0001 #### [facility] [address] [place], [address] EST GFR - AA 92 mL/min Normal >60 [facility] Comment on above: Result Comment: Afri can Ghanaian GFR Calc Performed By: #### L 100.0100, L501.0900, L500.4050, L400.0001 #### [facility] [address] [place], [address] GAP 5 Normal 5-15 [facility] Comment on above: Performed By: #### L 100.0100, L501.0900, L500.4050, L400.0001 #### [facility] [address] [place], [address] GFR/1.73 sq M.predicted among non-blacks MDRD (S/P/Bld) [Vol rate/Area] 76 mL/min/{1.73_m2} Normal >60 [facility] Comment on above: Result Comment: Non- GFR Calc Performed By: #### L 100.0100, L501.0900, L500.4050, L400.0001 #### [facility] [address] [place], [address] Globulin (S) [Mass/Vol] 3.8 g/dL Normal 2.2-4.2 [facility] Comment on above: Performed By: #### L 100.0100, L501.0900, L500.4050, L400.0001 #### [facility] [address] [place], [address] Glucose [Mass/Vol] 122 mg/dL High 74-106 [facility] Comment on above: Result Comment: Fast ing Glucose result from 100 to 125 mg/dL suggests IMPAIRED HOMEOSTASIS per A.D.A. criteria. Performed By: #### L 100.0100, L501.0900, L500.4050, L400.0001 #### [facility] [address] [place], [address] Potassium [Moles/Vol] 4.0 mmol/L Normal 3.5-5.1 [facility] Comment on above: Performed By: #### L 100.0100, L501.0900, L500.4050, L400.0001 #### [facility] [address] [place], [address] Sodium [Moles/Vol] 140 mmol/L Normal 136-145 [facility] Comment on above: Performed By: #### L 100.0100, L501.0900, L500.4050, L400.0001 #### [facility] [address] [place], [address] T PROT 7.5 g/dL Normal 6.4-8.2 [facility] Comment on above: Performed By: #### L 100.0100, L501.0900, L500.4050, L400.0001 #### [facility] [address] [place], [address] Urea nitrogen [Mass/Vol] 17 mg/dL Normal 7-18 [facility] Comment on above: Performed By: #### L 100.0100, L501.0900, L500.4050, L400.0001 #### [facility] [address] [place], [address] Echo Completeon 01-07-2024 Echo Complete [facility] [address] [place] [address] Echo Complete 01/07/24 1505 MR#: [id number] Acct: [id number] Name: LISSETH SANDHU Rep #: [id number] : 1955 68 From: Sandoval Egan MD Attending Dr: Dr. Suzy Lozano MD Status: RE G CLI Ordering Dr: Suzy Lozano MD Date: 01/07/24 Location: [facility] Sex: F C Admitted: Reason For Study: Systemic Sclerosis Procedure This was a 2D Doppler, Color Flow transthoracic echocardiogram. Exam performed in department. Left Ventricle Normal LV size. The left ventricular ejection fraction is 65 %. Stage 1 diastolic dysfunction. No regional wall motion abnormalities noted. Right Ventricle Normal RV size. Normal systolic function. Atria Normal left atrium. Normal right atrium. Mitral Valve Normal mitral valve. Tricuspid Valve Normal tricuspid valve. Mild (1+) tricuspid valve insufficiency. Pulmonary artery systolic pressure is 26 mmHg. Aortic Valve Trisinus/trileaflet aortic valve. Pulmonic Valve Normal pulmonic valve. Great Vessels Normal aortic root. The pulmonary artery is normal size. Inferior vena cava collapse with respiration. Pericardium/Pleural No pericardial effusion. MMode/2D Measurements Calculations LVIDd: 4.0 cm IVSd: 0.88 cm Ao root diam: 2.8 cm LVIDs: 2.3 cm LVPWd: 1.0 cm RVDd: 2.9 cm FS: 41.2 % LAV(MOD-bp): 30.1 ml LVAd ap4: 19.7 cm2 SV(MOD-sp4): 31.7 ml LAV(MOD-bp) Indexed: 20.1 ml/m2 LVLd ap4: 6.7 cm LAV(MOD-sp2): 37.1 ml EDV(MOD-sp4): 47.8 ml LAV(MOD-sp4): 24.6 ml EDV(sp4-el): 49.0 ml LVAs ap4: 9.9 cm2 LVLs ap4: 5.3 cm ESV(MOD-sp4): 16.2 ml ESV(sp4-el): 15.6 ml EF(MOD-sp4): 66.2 % EF(sp4-el): 68.2 % SV(sp4-el): 33.4 ml LA A4 area: 12.4 cm2 LA dimension(2D): 3.2 cm RA A4 area: 14.1 cm2 TAPSE: 3.3 cm Time Measurements MV dec time: 0.28 sec Doppler Measurements Calculations MV E max zuleima: 85.3 cm/sec Lat Peak E' Zuleima: 8.5 cm/sec Med Peak E' Zuleima: 8.9 cm/sec MV A max zuleima: 104.4 cm/sec E/E' lat: 10.0 E/E' med: 9.6 MV E/A: 0.82 Ao V2 max: 189.0 cm/sec LV V1 max: 130.6 cm/sec MV dec slope: 309.9 cm/sec2 Ao max P.3 mmHg LV V1 max P.8 mmHg Ao V2 mean: 123.0 cm/sec LV V1 mean P.5 mmHg Ao mean P.1 mmHg LV V1 mean: 86.1 cm/sec Ao V2 VTI: 40.2 cm LV V1 VTI: 28.0 cm AV (velocity ratio): 0.70 PA V2 max: 85.5 cm/sec TR max zuleima: 239.6 cm/sec TR max P.0 mmHg ECHO/Echo Complete Interpretation Summary Normal LV size. The left ventricular ejection fraction is 65 %. Stage 1 diastolic dysfunction. Structurally normal valves. ___ Ordering Physician: Suzy Lozano Referring Physician: Jojo Ray Performed By: Priti Freeman, MILLA, RVT 01/07/24 175 Date Sandoval Egan MD CC: Dr. Jojo Ray MD; Dr. 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, [id number] Protein (U) [Mass/Vol] 7.5 mg/dL Normal <11.9 [facility] Comment on above: Performed By: #### L 100.0100, L501.0900, L500.4050, L400.0001 #### [facility] [address] [place], [address] UR CREAT 38.20 mg/dL Normal NO RANGE EST. [facility] Comment on above: Performed By: #### L 100.0100, L501.0900, L500.4050, L400.0001 #### [facility] [address] [place], [address] Urinalysis, Completeon 01-06 EPI,SQUAMOUS 0-5 SEEN Normal 5-10 [facility] Comment on above: Order Comment: Urine , Random Performed By: #### L 100.0100, L501.0900, L500.4050, L400.0001 #### [facility] [address] [place], [address] WBC 0-5 SEEN Normal 0-5 [facility] Comment on above: Order Comment: Urine , Random Performed By: #### L 100.0100, L501.0900, L500.4050, L400.0001 #### [facility] [address] [place], [address] BACTERIA 2+ /hpf Normal None Seen [facility] Comment on above: Order Comment: Urine , Random Performed By: #### L 100.0100, L501.0900, L500.4050, L400.0001 #### [facility] [address] [place], [address] Mucus Ql (Urine sed) 0 SEEN Normal [facility] Comment on above: Order Comment: Urine , Random Performed By: #### L 100.0100, L501.0900, L500.4050, L400.0001 #### [facility] [address], [address] RBC 0 SEEN Normal 0-5 [facility] Comment on above: Order Comment: Urine , Random Performed By: #### L 100.0100, L501.0900, L500.4050, L400.0001 #### [facility] [address] [place], [address] Foot min 3 Viewson 4 Foot min 3 Views [facility] Imaging Services [address] [place] [address] Foot min 3 Views MR#: [id number] Acct: [id number] Name: LISSETH SANDHU Rep #: [id number] : 1955 F 68 From: Aristides Mejia MD PCP: Dr. Jojo Ray MD Status: REG CLI Study: Foot min 3 Views Date of Exam: 11/18/23 Exam# [id number] Ordering Dr: Ignacio Argueta [id number] STUDY: X-RAY - LEFT FOOT CLINICAL: Female, 68 years old. Left foot injury. TECHNIQUE: 3 views of the left foot. COMPARISON: None. FINDINGS: Intact talus, calcaneus, and tarsal bones. There is a plantar calcaneal spur. 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 Normal visualized subtalar, calcaneocuboid, tarsal and tarsometatarsal articulations. Normal metatarsi. Normal metatarsophalangeal joint of the great toe. Normal tibial and fibular sesamoid bones. Normal interphalangeal joint of the great toe. Normal phalanges of the great toe. Normal second through fifth metatarsophalangeal joints. Normal interphalangeal joints and phalanges of the lesser toes. The soft tissue structures are unremarkable. There is no demonstrated fracture. RAD/Foot min 3 Views IMPRESSION: Talonavicular arthrosis. Plantar calcaneal spur. Electronically Signed: Aristides Mejia MD at 10:16 EDT , CC: Dr. Jojo Ray MD; Dr. Ignacio Argueta MD Resistance Welder: Signed Normal [facility] Thin prep Papanicolaou smear with manual screeningOrdered By: Jojo Ray on 09-06-2023 Thin prep Papanicolaou smear with manual screening < 6.0 mg/dL 0.0-11.8 [facility] Urine creatinine measurement (mass/volume)Ordered By: Jojo Ray on 09-06-2023 Creatinine (U) [Mass/Vol] mg/dL NO RANGE EST. [facility] Urine protein/creatinine mas s ratioOrdered By: Jojo Ray on 09-06-2023 Protein/Creatinine (U) [Mass ratio] TNP [facility] Comment on above: Test not performed Absolute lymphocyte countOrd ered By: Suzy Lozano on 04-30-2023 Lymphocytes Auto (Unsp spec) [#/Vol] 1.36 10*3/uL 0.83-4.51 [facility] Basophil percentageOrdered B y: Suzy Lozano on 04-30-2023 Basophils/100 WBC (Bld) 0.3 % 0-1 [facility] Bilirubin [Mass/Vol] 0.50 mg/dL 0.20-1.00 [facility] Comment on above: For patients on eltr ombopag therapy, use of Dimension Burdine TBIL is not recommended. Chloride [Moles/Vol] 106 mmol/L 98-107 [facility] Eosinophils/100 WBC (Bld) 2.8 % 0-5 [facility] Glucose [Mass/Vol] 102 mg/dL 74-106 [facility] Comment on above: Fasting Glucose resu lt from 100 to 125 mg/dL suggests IMPAIRED HOMEOSTASIS per A.D.A. criteria. Neutrophils (Bld) [#/Vol] 6.4 10*3/uL 2.0-7.7 [facility] Neutrophils/100 WBC (Bld) 74.4 % 47-70 [facility] Potassium [Moles/Vol] 3.8 mmol/L 3.5-5.1 [facility] Protein [Mass/Vol] 7.7 g/dL 6.4-8.2 [facility] Sodium [Moles/Vol] 139 mmol/L 136-145 [facility] WBC (Bld) [#/Vol] 8.6 10*3/uL 4.4-11.0 [facility] Bilirubin Test strip Ql (U)O rdered By: Suzy Lozano on 04-30-2023 Bilirubin Ql (U) Negative Negative [facility] Blood erythrocytes count (nu mber/volume)Ordered By: Suzy Lozano on 04-30-2023 RBC (Bld) [#/Vol] 4.61 10*6/uL 4.2-5.4 [facility] Blood hemoglobin measurement (mass/volume)Ordered By: Suzy Lozano on 04-30-2023 Hemoglobin (Bld) [Mass/Vol] 13.0 g/dL 12.0-15.0 [facility] Blood lymphocytes/100 leukoc ytesOrdered By: Suzy Lozano on 04-30-2023 Lymphocytes/100 WBC (Bld) 15.8 % 19-41 [facility] Blood monocytes/100 leukocyt esOrdered By: Suzy Lozano on 04-30-2023 Monocytes/100 WBC (Bld) 6.5 % 0-10 [facility] Blood platelet mean volumeOr dered By: Suzy Lozano on 04-30-2023 Platelet mean volume (Bld) [Entitic vol] 9.6 fL 6.2-12.0 [facility] Determination of erythrocyte mean corpuscular volume (MCV)Ordered By: Suzy Lozano on 04-30-2023 MCV (RBC) [Entitic vol] 92.4 fL 81-99 [facility] Hematocrit Auto (Bld) [Volum e fraction]Ordered By: Suzy Lozano on 04-30-2023 Hematocrit (Bld) [Volume fraction] 42.6 % 37-47 [facility] Ketones Test strip Ql (U)Ord ered By: Suzy Lozano on 04-30-2023 Ketones Ql (U) Negative Negative [facility] - Chemistry and C hemistry - challengeOrdered By: Suzy Lozano on 04-30-2023 ALP [Catalytic activity/Vol] 81 U/L 45-117 [facility] ALT [Catalytic activity/Vol] 19 U/L 13-56 [facility] CO2 [Moles/Vol] 31.0 mmol/L 21.0-32.0 [facility] Globulin (S) [Mass/Vol] 3.9 g/dL 2.2-4.2 [facility] Urea nitrogen/Creatinine [Mass ratio] 18.8 mg/mg 10-20 [facility] - Hematology and Cell countsOrdered By: Suzy Lozano on 04-30-2023 Erythrocyte distribution width (RBC) [Entitic vol] 47.5 fL 35.1-43.9 [facility] Erythrocyte distribution width (RBC) [Ratio] 14.0 % 11.6-14.6 [facility] Immature granulocytes/100 WBC (Bld) 0.200 % 0.0-0.9 [facility] Comment on above: IG% - Immature Granu locytes (promyelocytes, myelocytes and metamyelocytes) > 1% indicates that a LEFT SHIFT is Present. MCH (RBC) [Entitic mass] 28.2 pg 27.0-32.0 [facility] Nucleated RBC/100 WBC (Bld) [Ratio] 0 % 0-5 [facility] MCHC Auto (RBC) [Mass/Vol]Or dered By: Suzy Lozano on 04-30-2023 MCHC (RBC) [Mass/Vol] 30.5 g/dL 32-36 [facility] Nitrite Test strip Ql (U)Ord ered By: Suzy Lozano on 04-30-2023 Nitrite Ql (U) Negative Negative [facility] No Panel InformationOrdered By: Suzy Lozano on 04-30-2023 Estimated GFR (MDRD) Amer 92 mL/min >60 [facility] Comment on above: GFR Calc Estimated GFR (MDRD) Non-Af Amer 76 mL/min >60 [facility] Comment on above: Non- GFR Calc Platelets bldOrdered By: Elise Lozano on 04-30-2023 Platelets (Bld) [#/Vol] 247 10*3/uL 150-450 [facility] Protein Test strip Ql (U)Ord ered By: Suzy Lozano on 04-30-2023 Protein Ql (U) Negative Negative [facility] Serum or plasma albumin tiffany urement (mass/volume)Ordered By: Suzy Lozano on 04-30-2023 Albumin [Mass/Vol] 3.8 g/dL 3.2-5.0 [facility] Serum or plasma albumin/glob ulin mass ratioOrdered By: Suzy Lozano on 04-30-2023 Albumin/Globulin [Mass ratio] 1.0 {ratio} 0.9-2.4 [facility] Serum or plasma calcium tiffany urement (mass/volume)Ordered By: Suzy Lozano on 04-30-2023 Calcium [Mass/Vol] 9.2 mg/dL 8.5-10.1 [facility] Serum or plasma creatinine m easurement (mass/volume)Ordered By: Suzy Lozano on 04-30-2023 Creatinine [Mass/Vol] 0.80 mg/dL 0.55-1.02 [facility] Comment on above: The validity of the calculated GFR & GFRAA in patients over 70 years has not been determined. Clinical correlation is essential. Serum or plasma urea nitroge n measurement (mass/volume)Ordered By: Suzy Lozano on 04-30-2023 Urea nitrogen [Mass/Vol] 15 mg/dL 7-18 [facility] Thin prep Papanicolaou smear with manual screeningOrdered By: Suzy Lozano on 04-30-2023 Thin prep Papanicolaou smear with manual screening 14 U/L 15-37 [facility] Thin prep Papanicolaou smear with manual screening 2 5-15 [facility] Urine blood detectionOrdered By: Suzy Lozano on 04-30-2023 RBC Ql (U) Negative Negative [facility] Urine clarityOrdered By: Elise Lozano on 04-30-2023 Clarity (U) Clear Clear [facility] Urine color determinationOrd ered By: Suzy Lozano on 04-30-2023 Color (U) Yellow Yellow [facility] Urine creatinine measurement (mass/volume)Ordered By: Suzy Lozano on 04-30-2023 Creatinine (U) [Mass/Vol] 60.70 mg/dL NO RANGE EST. [facility] Urine glucose detectionOrder ed By: Suzy Lozano on 04-30-2023 Glucose Ql (U) Normal mg/dl Normal [facility] Urine leukocyte esterase det ection by dipstickOrdered By: Suzy Lozano on 04-30-2023 Leukocyte esterase Test strip Ql (U) 25 /ul Negative [facility] Urine pHOrdered By: Suzy richards on 04-30-2023 pH (U) 7.0 [pH] 5.0 - 8.0 [facility] Urine protein measurement (m ass/volume)Ordered By: Suzy Lozano on 04-30-2023 Protein (U) [Mass/Vol] 7.8 mg/dL 0.0-11.8 [facility] Urine protein/creatinine mas s ratioOrdered By: Suzy Lozano on 04-30-2023 Protein/Creatinine (U) [Mass ratio] 129 mg/g CRE 0-200 [facility] Urine specific gravity measu rementOrdered By: Suzy Lozano on 04-30-2023 Specific gravity (U) [Rel density] 1.015 1.002-1.03 0 [facility] Urobilinogen Auto test strip Ql (U)Ordered By: Suzy Lozano on 04-30-2023 Urobilinogen Ql (U) Normal mg/dl Normal [facility] Absolute lymphocyte countOrd ered By: Suzy Lozano on 12-03-2022 Lymphocytes Auto (Unsp spec) [#/Vol] 1.00 10*3/uL 0.83-4.51 [facility] Basophil percentageOrdered B y: Suzy Lozano on 12-03-2022 Basophils/100 WBC (Bld) 0.5 % 0-1 [facility] Bilirubin [Mass/Vol] 0.90 mg/dL 0.20-1.00 [facility] Comment on above: For patients on eltr ombopag therapy, use of Dimension Burdine TBIL is not recommended. Chloride [Moles/Vol] 106 mmol/L 98-107 [facility] Eosinophils/100 WBC (Bld) 2.4 % 0-5 [facility] Glucose [Mass/Vol] 104 mg/dL 74-106 [facility] Comment on above: Fasting Glucose resu lt from 100 to 125 mg/dL suggests IMPAIRED HOMEOSTASIS per A.D.A. criteria. Neutrophils (Bld) [#/Vol] 7.1 10*3/uL 2.0-7.7 [facility] Neutrophils/100 WBC (Bld) 79.9 % 47-70 [facility] Potassium [Moles/Vol] 4.0 mmol/L 3.5-5.1 [facility] Protein [Mass/Vol] 7.5 g/dL 6.4-8.2 [facility] Sodium [Moles/Vol] 139 mmol/L 136-145 [facility] WBC (Bld) [#/Vol] 8.9 10*3/uL 4.4-11.0 [facility] Bilirubin Test strip Ql (U)O rdered By: Suzy Lozano on 12-03-2022 Bilirubin Ql (U) Negative Negative [facility] Blood erythrocytes count (nu mber/volume)Ordered By: Suzy Lozano on 12-03-2022 RBC (Bld) [#/Vol] 4.71 10*6/uL 4.2-5.4 [facility] Blood hemoglobin measurement (mass/volume)Ordered By: Suzy Lozano on 12-03-2022 Hemoglobin (Bld) [Mass/Vol] 13.5 g/dL 12.0-15.0 [facility] Blood lymphocytes/100 leukoc ytesOrdered By: Suzy Lozano on 12-03-2022 Lymphocytes/100 WBC (Bld) 11.3 % 19-41 [facility] Blood monocytes/100 leukocyt esOrdered By: Suzy Lozano on 12-03-2022 Monocytes/100 WBC (Bld) 5.7 % 0-10 [facility] Blood platelet mean volumeOr dered By: Suzy Lozano on 12-03-2022 Platelet mean volume (Bld) [Entitic vol] 10.1 fL 6.2-12.0 [facility] Determination of erythrocyte mean corpuscular volume (MCV)Ordered By: Suzy Lozano on 12-03-2022 MCV (RBC) [Entitic vol] 89.6 fL 81-99 [facility] Erythrocyte sedimentation ra teOrdered By: Suzy Lozano on 12-03-2022 ESR (Bld) [Velocity] 4 mm/h 0-30 [facility] Hematocrit Auto (Bld) [Volum e fraction]Ordered By: Suzy Lozano on 12-03-2022 Hematocrit (Bld) [Volume fraction] 42.2 % 37-47 [facility] Ketones Test strip Ql (U)Ord ered By: Suzy Lozano on 12-03-2022 Ketones Ql (U) Negative Negative [facility] Laboratory - Chemistry and C hemistry - challengeOrdered By: Suzy Lozano on 12-03-2022 ALP [Catalytic activity/Vol] 74 U/L 45-117 [facility] ALT [Catalytic activity/Vol] 17 U/L 13-56 [facility] CO2 [Moles/Vol] 28.0 mmol/L 21.0-32.0 [facility] Globulin (S) [Mass/Vol] 3.9 g/dL 2.2-4.2 [facility] Urea nitrogen/Creatinine [Mass ratio] 22.6 mg/mg 10-20 [facility] Laboratory - Hematology and Cell countsOrdered By: Suzy Lozano on 12-03-2022 Erythrocyte distribution width (RBC) [Entitic vol] 44.1 fL 35.1-43.9 [facility] Erythrocyte distribution width (RBC) [Ratio] 13.3 % 11.6-14.6 [facility] Immature granulocytes/100 WBC (Bld) 0.200 % 0.0-0.9 [facility] Comment on above: IG% - Immature Granu locytes (promyelocytes, myelocytes and metamyelocytes) > 1% indicates that a LEFT SHIFT is Present. MCH (RBC) [Entitic mass] 28.7 pg 27.0-32.0 [facility] Nucleated RBC/100 WBC (Bld) [Ratio] 0 % 0-5 [facility] MCHC Auto (RBC) [Mass/Vol]Or dered By: Suzy Lozano on 12-03-2022 MCHC (RBC) [Mass/Vol] 32.0 g/dL 32-36 [facility] Nitrite Test strip Ql (U)Ord ered By: Suzy Lozano on 12-03-2022 Nitrite Ql (U) Negative Negative [facility] No Panel InformationOrdered By: Suzy Lozano on 12-03-2022 Estimated GFR (MDRD) Amer 86 mL/min >60 [facility] Comment on above: GFR Calc Estimated GFR (MDRD) Non-Af Amer 71 mL/min >60 [facility] Comment on above: Non- GFR Calc Miscellaneous Test Comment MAILED SPECIMEN [facility] Platelets bldOrdered By: Elise Lozano on 12-03-2022 Platelets (Bld) [#/Vol] 221 10*3/uL 150-450 [facility] Protein Test strip Ql (U)Ord ered By: Suzy Lozano on 12-03-2022 Protein Ql (U) Negative Negative [facility] Serum or plasma C reactive p rotein measurement (mass/volume)Ordered By: Suzy Lozano on 12-03-2022 CRP [Mass/Vol] mg/L 0.0-3.0 [facility] Comment on above: C-Reactive Protein ( CRP) provides useful information for thediagnosis, therapy and monitoring of inflammatory processesand associated diseases. For the evaluation of Relative Riskfor Cardiovascular Disease, a High Sensitivity CRP (HSCRP)should be ordered. Serum or plasma albumin tiffany urement (mass/volume)Ordered By: Suzy Lozano on 12-03-2022 Albumin [Mass/Vol] 3.6 g/dL 3.2-5.0 [facility] Serum or plasma albumin/glob ulin mass ratioOrdered By: Suzy Lozano on 12-03-2022 Albumin/Globulin [Mass ratio] 0.9 {ratio} 0.9-2.4 [facility] Serum or plasma calcium tiffany urement (mass/volume)Ordered By: Suzy Lozano on 12-03-2022 Calcium [Mass/Vol] 9.4 mg/dL 8.5-10.1 [facility] Serum or plasma creatinine m easurement (mass/volume)Ordered By: Suzy Lozano on 12-03-2022 Creatinine [Mass/Vol] 0.84 mg/dL 0.55-1.02 [facility] Comment on above: The validity of the calculated GFR & GFRAA in patients over 70 years has not been determined. Clinical correlation is essential. Serum or plasma urea nitroge n measurement (mass/volume)Ordered By: Suzy Lozano on 12-03-2022 Urea nitrogen [Mass/Vol] 19 mg/dL 7-18 [facility] Thin prep Papanicolaou smear with manual screeningOrdered By: Suzy Lozano on 12-03-2022 Thin prep Papanicolaou smear with manual screening 16 U/L 15-37 [facility] Thin prep Papanicolaou smear with manual screening 5 5-15 [facility] Urine blood detectionOrdered By: Suzy Lozano on 12-03-2022 RBC Ql (U) 25 /ul Negative [facility] Urine clarityOrdered By: Elise Lozano on 12-03-2022 Clarity (U) Clear Clear [facility] Urine color determinationOrd ered By: Suzy Lozano on 12-03-2022 Color (U) Yellow Yellow [facility] Urine creatinine measurement (mass/volume)Ordered By: Suzy Lozano on 12-03-2022 Creatinine (U) [Mass/Vol] 13.40 mg/dL NO RANGE EST. [facility] Urine glucose detectionOrder ed By: Suzy Lozano on 12-03-2022 Glucose Ql (U) Normal mg/dl Normal [facility] Urine leukocyte esterase det ection by dipstickOrdered By: Suzy Lozano on 12-03-2022 Leukocyte esterase Test strip Ql (U) 25 /ul Negative [facility] Urine pHOrdered By: Suzy richards on 12-03-2022 pH (U) 7.0 [pH] 5.0 - 8.0 [facility] Urine protein measurement (m ass/volume)Ordered By: Suzy Lozano on 12-03-2022 Protein (U) [Mass/Vol] mg/dL 0.0-11.8 [facility] Urine protein/creatinine mas s ratioOrdered By: Suyz Lozano on 12-03-2022 Protein/Creatinine (U) [Mass ratio] TNP [facility] Comment on above: Test not performed Urine specific gravity measu rementOrdered By: Suzy Lozano on 12-03-2022 Specific gravity (U) [Rel density] 1.005 1.002-1.03 0 [facility] Urobilinogen Auto test strip Ql (U)Ordered By: Suzy Lozano on 12-03-2022 Urobilinogen Ql (U) Normal mg/dl Normal [facility] Absolute lymphocyte countOrd ered By: Deb Mahoney on 10-11-2022 Lymphocytes Auto (Unsp spec) [#/Vol] 1.25 10*3/uL 0.83-4.51 [facility] Basophil percentageOrdered B y: Deb Mahoney on 10-11-2022 Basophils/100 WBC (Bld) 0.2 % 0-1 [facility] Bilirubin [Mass/Vol] 0.90 mg/dL 0.20-1.00 [facility] Comment on above: For patients on eltr ombopag therapy, use of Dimension [place] TBIL is not recommended. Chloride [Moles/Vol] 109 mmol/L 98-107 [facility] Eosinophils/100 WBC (Bld) 2.3 % 0-5 [facility] Glucose [Mass/Vol] 100 mg/dL 74-106 [facility] Comment on above: Fasting Glucose resu lt from 100 to 125 mg/dL suggests IMPAIRED HOMEOSTASIS per A.D.A. criteria. Neutrophils (Bld) [#/Vol] 6.7 10*3/uL 2.0-7.7 [facility] Neutrophils/100 WBC (Bld) 77.4 % 47-70 [facility] Potassium [Moles/Vol] 4.2 mmol/L 3.5-5.1 [facility] Protein [Mass/Vol] 7.5 g/dL 6.4-8.2 [facility] Sodium [Moles/Vol] 141 mmol/L 136-145 [facility] WBC (Bld) [#/Vol] 8.7 10*3/uL 4.4-11.0 [facility] Blood erythrocytes count (nu mber/volume)Ordered By: Deb Mahoney on 10-11-2022 RBC (Bld) [#/Vol] 4.72 10*6/uL 4.2-5.4 [facility] Blood hemoglobin measurement (mass/volume)Ordered By: Deb Mahoney on 10-11-2022 Hemoglobin (Bld) [Mass/Vol] 13.5 g/dL 12.0-15.0 [facility] Blood lymphocytes/100 leukoc ytesOrdered By: Deb Mahoney on 10-11-2022 Lymphocytes/100 WBC (Bld) 14.4 % 19-41 [facility] Blood monocytes/100 leukocyt esOrdered By: Deb Mahoney on 10-11-2022 Monocytes/100 WBC (Bld) 5.5 % 0-10 [facility] Blood platelet mean volumeOr dered By: Deb Mahoney on 10-11-2022 Platelet mean volume (Bld) [Entitic vol] 10.0 fL 6.2-12.0 [facility] Determination of erythrocyte mean corpuscular volume (MCV)Ordered By: Deb Mahoney on 10-11-2022 MCV (RBC) [Entitic vol] 90.9 fL 81-99 [facility] Hematocrit Auto (Bld) [Volum e fraction]Ordered By: Deb Mahoney on 10-11-2022 Hematocrit (Bld) [Volume fraction] 42.9 % 37-47 [facility] Laboratory - Chemistry and C hemistry - challengeOrdered By: Deb Mahoney on 10-11-2022 ALP [Catalytic activity/Vol] 77 U/L 45-117 [facility] ALT [Catalytic activity/Vol] 19 U/L 13-56 [facility] CO2 [Moles/Vol] 28.0 mmol/L 21.0-32.0 [facility] Globulin (S) [Mass/Vol] 3.7 g/dL 2.2-4.2 [facility] Urea nitrogen/Creatinine [Mass ratio] 28.8 mg/mg 10-20 [facility] Laboratory - Hematology and Cell countsOrdered By: Deb Mahoney on 10-11-2022 Erythrocyte distribution width (RBC) [Entitic vol] 46.9 fL 35.1-43.9 [facility] Erythrocyte distribution width (RBC) [Ratio] 13.8 % 11.6-14.6 [facility] Immature granulocytes/100 WBC (Bld) 0.200 % 0.0-0.9 [facility] Comment on above: IG% - Immature Granu locytes (promyelocytes, myelocytes and metamyelocytes) > 1% indicates that a LEFT SHIFT is Present. MCH (RBC) [Entitic mass] 28.6 pg 27.0-32.0 [facility] Nucleated RBC/100 WBC (Bld) [Ratio] 0 % 0-5 [facility] MCHC Auto (RBC) [Mass/Vol]Or dered By: Deb Mahoney on 10-11-2022 MCHC (RBC) [Mass/Vol] 31.5 g/dL 32-36 [facility] No Panel InformationOrdered By: Deb Mahoney on 10-11-2022 Estimated GFR (MDRD) Amer 92 mL/min >60 [facility] Comment on above: GFR Calc Estimated GFR (MDRD) Non-Af Amer 76 mL/min >60 [facility] Comment on above: Non- GFR Calc Thyroid Stimulating Hormone (TSH) 1.85 uIU/mL 0.358-3.74 [facility] Platelets bldOrdered By: Ck Mahoney on 10-11-2022 Platelets (Bld) [#/Vol] 236 10*3/uL 150-450 [facility] Serum nuclear antibody titer by immunofluorescenceOrdered By: Deb Mahoney on 10-11-2022 Nuclear Ab IF (S) [Titer] See comment [facility] Comment on above: TEST RESULTS LIMITSA NA by IFA Rfx Titer/Pattern Positive Abnormal Negative < 1:80 Borderline 1:80 Positive > 1:80Centromere Pattern >1:1280 AbnormalICAP nomenclature: AC-3For more information about Hep-2 cell patterns useANApatterns.org, the official website for the InternationalConsensus on Antinuclear Antibody (LATANYA) Patterns (ICAP). ------- Note: A positive LATANYA result may occur in healthy individualsor be associated with a variety of diseases. Seeinterpretation below:Pattern Antigen Detected Suggested Disease Association Homogenous DNA(ds,ss,n), High titers - SLE (Smooth) Histone Speckled Sm,DOPE FIRER,SCL-70, SLE,MCTD, Scleroderma, SS-A/SS-B Sjogrens Nucleolar SCL-70,PM-1/SCL High titers Scleroderma Polymyositis/scleroderma over- lap Centromere Centromere PSS w/Crest syndrome variable Nuclear Dot [id number] Primary Biliary Cirrhosis Nuclear GP210, Primary Biliary CirrhosisMembrane juan alberto A,B,C TESTING PERFORMED AT [facility]. ORIGINAL REPORT ON FILE IN LAB CONTAINS ADDITIONAL TEST SITE INFORMATION. Serum or plasma albumin tiffany urement (mass/volume)Ordered By: Deb Mahoney on 10-11-2022 Albumin [Mass/Vol] 3.8 g/dL 3.2-5.0 [facility] Serum or plasma albumin/glob ulin mass ratioOrdered By: Deb Mahoney on 10-11-2022 Albumin/Globulin [Mass ratio] 1.0 {ratio} 0.9-2.4 [facility] Serum or plasma calcium tiffany urement (mass/volume)Ordered By: Deb Mahoney on 10-11-2022 Calcium [Mass/Vol] 9.3 mg/dL 8.5-10.1 [facility] Serum or plasma creatinine m easurement (mass/volume)Ordered By: Deb Mahoney on 10-11-2022 Creatinine [Mass/Vol] 0.80 mg/dL 0.55-1.02 [facility] Comment on above: The validity of the calculated GFR & GFRAA in patients over 70 years has not been determined. Clinical correlation is essential. Serum or plasma ferritin dede surement (mass/volume)Ordered By: Deb Mahoney on 10-11-2022 Ferritin [Mass/Vol] 73 ng/mL 8-252 [facility] Serum or plasma thyroperoxid ase antibody assay (units/volume)Ordered By: Deb Mahoney on 10-11-2022 TPO Ab Qn 12 [IU]/mL 0-34 [facility] Comment on above: Performed at: - [address] [id number] Director: Angel Dee PhD, Phone: [phone] Serum or plasma urea nitroge n measurement (mass/volume)Ordered By: Deb Mahoney on 10-11-2022 Urea nitrogen [Mass/Vol] 23 mg/dL 7-18 [facility] Thin prep Papanicolaou smear with manual screeningOrdered By: Deb Mahoney on 10-11-2022 Thin prep Papanicolaou smear with manual screening 14 U/L 15-37 [facility] Thin prep Papanicolaou smear with manual screening 4 5-15 [facility] Basophil percentageOrdered B y: Dr. Ray on 07-27-2022 Chloride [Moles/Vol] 104 mmol/L 98-107 [facility] Glucose [Mass/Vol] 92 mg/dL 74-106 [facility] Potassium [Moles/Vol] 3.7 mmol/L 3.5-5.1 [facility] Sodium [Moles/Vol] 140 mmol/L 136-145 [facility] Laboratory - Chemistry and C hemistry - challengeOrdered By: Dr. Ray on 07-27-2022 CO2 [Moles/Vol] 27.0 mmol/L 21.0-32.0 [facility] Urea nitrogen/Creatinine [Mass ratio] 24.2 mg/mg 10-20 [facility] No Panel InformationOrdered By: Dr. Ray on 07-27-2022 Estimated GFR (MDRD) Amer 84 mL/min >60 [facility] Comment on above: GFR Calc Estimated GFR (MDRD) Non-Af Amer 69 mL/min >60 [facility] Comment on above: Non- GFR Calc Serum or plasma calcium tiffany urement (mass/volume)Ordered By: Dr. Ray on 07-27-2022 Calcium [Mass/Vol] 9.2 mg/dL 8.5-10.1 [facility] Serum or plasma creatinine m easurement (mass/volume)Ordered By: Dr. Ray on 07-27-2022 Creatinine [Mass/Vol] 0.87 mg/dL 0.55-1.02 [facility] Comment on above: The validity of the calculated GFR & GFRAA in patients over 70 years has not been determined. Clinical correlation is essential. Serum or plasma urea nitroge n measurement (mass/volume)Ordered By: Dr. Ray on 07-27-2022 Urea nitrogen [Mass/Vol] 21 mg/dL 7-18 [facility] Thin prep Papanicolaou smear with manual screeningOrdered By: Dr. Ray on 07-27-2022 Thin prep Papanicolaou smear with manual screening 9 5-15 [facility] Basophil percentageon 2021 Chloride [Moles/Vol] 106 mmol/L 98-107 [facility] Work Phone: Glucose [Mass/Vol] 97 mg/dL 74-106 [facility] Work Phone: Potassium [Moles/Vol] 4.4 mmol/L 3.5-5.1 [facility] Work Phone: Sodium [Moles/Vol] 140 mmol/L 136-145 [facility] Work Phone: Laboratory - Chemistry and C hemistry - challengeon 08-22-2021 CO2 [Moles/Vol] 28.0 mmol/L 21.0-32.0 [facility] Work Phone: Urea nitrogen/Creatinine [Mass ratio] 26.8 mg/mg 10-20 [facility] Work Phone: No Panel Informationon 08-22 Estimated GFR (MDRD) Amer 100 mL/min >60 [facility] Work Phone: Comment on above: GFR Calc Estimated GFR (MDRD) Non-Af Amer 82 mL/min >60 [facility] Work Phone: Comment on above: Non- GFR Calc Serum or plasma calcium tiffany urement (mass/volume)on 08-22-2021 Calcium [Mass/Vol] 9.8 mg/dL 8.5-10.1 [facility] Work Phone: Serum or plasma creatinine m easurement (mass/volume)on 08-22-2021 Creatinine [Mass/Vol] 0.74 mg/dL 0.55-1.02 [facility] Work Phone: Comment on above: The validity of the calculated GFR & GFRAA in patients over 70 years has not been determined. Clinical correlation is essential. Serum or plasma urea nitroge n measurement (mass/volume)on 08-22-2021 Urea nitrogen [Mass/Vol] 20 mg/dL 7-18 [facility] Work Phone: Thin prep Papanicolaou smear with manual screeningon 08-22-2021 Thin prep Papanicolaou smear with manual screening 6 5-15 [facility] Work Phone: Laboratory - Microbiology an d Antimicrobial susceptibilityon 06-22-2021 SARS-CoV-2 (COVID-19) RNA MAN+probe Ql (Unsp spec) Detected Not Detect [facility] Work Phone: Comment on above: Normal Reference Ran ge: Not DetectedMethod:(RT-PCR) real-time reverse transcriptase PCRLuminex SAM Instrument*The Food and Drug Administration (FDA) has issued an Emergency Use Authorization (EAU) for the SAM SARS-CoV-2 Assay for the rapid detection of the virus that causes COVID-19. This test has been validated, but the FDAs independent review of this validation is pending.*Negative results do not preclude infection and should not be used as the sole basis for treatment or patient management. Optimum specimen types and timing for peak viral levels during infections caused by SARS-CoV-2 have not been determined. Collection of multiple specimens from the same patient may be necessary to detect the virus. The possibility of a false negative result should be considered if the patient has clinical presentation or has had recent exposure. [facility] Surgical Pathology Depar [facility] 01-22-2020 [facility] Surgical Pathology Department Name LISSETH SANDHU Pathologist: SANKET SIFUENTES MD Date of Procedure: 01/22/2020 Date Received: 01/22/2020 Date Reported 01/27/2020 Submitting Physician: SHELIA MEJIA DO Location: [facility] Copy To/Referring/Attending: JOJO RAY MD Other External # FINAL DIAGNOSIS A. RIGHT COLON BIOPSY: -- MELANOSIS COLI. -- NO EVIDENCE OF DYSPLASIA. Interpretation performed at: [facility] Department of Pathology [address] [place], [place] [address] Electronically Signed Out By SANKET SIFUENTES MD/RN By the signature on this report, the individual or group listed as making the Final Interpretation/Diagnosis certifies that they have reviewed this case. Clinical History: HX of colon polyps family hx colon cancer Specimens Submitted As: A: RIGHT COLON BIOPSY Gross Description: A: Received in formalin, labeled with the patient's name and hospital number and right colon, are multiple fragments of lugo, soft tissue aggregating to 0.9 x 0.2 x 0.1 cm. The specimen is submitted in toto in one cassette. DPG dpg/01/26/2020 Normal [facility] Comment on above: Performed By: #### [facility] #### [facility] Surgical Pathology Department [id number] [address] [facility] [address] CORONAVIRUS 2019, SCREEN ASY MPTOMATICon 01-20-2020 CORONAVIRUS 2019,PCR NOT DETECTED Normal Not Detected [facility] Comment on above: Result Comment: . This assay is designed to detect SARS-CoV-2 based on replication of specific regions of the RNA from the SARS-CoV-2 virus. A Not Detected result does not preclude 2019-nCoV infection since the adequacy of sample collection and/or low viral burden may result in presence of viral nucleic acids below the clinical sensitivity of this test method. Fact sheet for providers: https://www.fda.gov/media/169048/download Fact sheet for patients: https://www.fda.gov/media/094804/download This test has received FDA Emergency Use Authorization [EUA] and has been verified by [facility] ([facility]). This test is only authorized for the duration of time that circumstances exist to justify the authorization of the emergency use of in vitro diagnostic tests for the detection of SARS-CoV-2 virus and/or diagnosis of COVID-19 infection under section 564(b)(1) of the Act, 21 U.S.C. 360bbb-3(b)(1), unless the authorization is terminated or revoked sooner. [facility] is certified under CLIA-88 as qualified to perform high complexity testing. Testing is performed in the [facility] laboratories located at [id number] [place] [address]. Performed By: #### C OVSC #### [facility] [address] [place] [address] CORONAVIRUS 2019, SCREEN ASY MPTOMATICon 01-19-2020 Lab Specimen Source Nasal, Nasopharyngeal Normal [facility] Comment on above: Performed By: #### C OVSC #### [facility] [address] [place] [address] Otheron 01-19-2020 NOT DETECTED See Below -[facility] Jethro andrews-Jermaine barrett Work Phone: Comment on above: SOURCE: Nasal, Nasop haryngealReference Range: Not Detected.This assay is designed to detect SARS-CoV-2 based on replication of specific regions of the RNA from the SARS-CoV-2 virus. A Not Detected result does not preclude 2019-nCoV infection since the adequacy of sample collection and/or low viral burden may result in presence of viral nucleic acids below the clinical sensitivity of this test method. Fact sheet for providers: https://www.fda.gov/media/912050/downloadFact sheet for patients: https://www.fda.gov/media/241737/downloadThis test has received FDA Emergency Use Authorization [EUA] and has been verified by [facility] ([facility]). This test is only authorized for the duration of time that circumstances exist to justify the authorization of the emergency use of in vitro diagnostic tests for the detection of SARS-CoV-2 virus and/or diagnosis of COVID-19 infection under section 564(b)(1) of the Act, 21 U.S.C. 360bbb-3(b)(1), unless the authorization is terminated or revoked sooner. [facility] is certified under CLIA-88 as qualified to perform high complexity testing. Testing is performed in the [facility] laboratories located at [address] [place] [address]. Basic Panelon 10-09-2017 Creatinine 0.64 mg/dL Normal 0.51-0.95 [facility] Comment on above: Performed By: #### M AG ####[facility] [place] [address] Glucose mass conc 110 mg/dL High 70-99 [facility] Comment on above: Performed By: #### M AG ####[place] [address] Urea nitrogen 8 mg/dL Normal 7-18 [facility] Comment on above: Performed By: #### M AG ####[place] [address] Anion gap 5 mmol/L Low 8-16 [facility] Comment on above: Performed By: #### M AG ####[place] [address] Calcium 7.4 mg/dL Low 8.5-10.1 [facility] Comment on above: Performed By: #### M AG ####[place] [address] CO2 28 mmol/L Normal 21-32 [facility] Comment on above: Performed By: #### M AG ####[place] [address] Chloride 110 mmol/L High 98-107 [facility] Comment on above: Performed By: #### M AG ####[place] [address] Potassium molar conc 3.3 mmol/L Low 3.5-5.1 [facility] Comment on above: Performed By: #### M AG ####[place] [address] Sodium 140 mmol/L Normal 136-145 [facility] Comment on above: Performed By: #### M AG ####[place] [address] CNDSon 10-09-2017 CNDS HNO ID: [id number] thor: Perry Sheriff: General SurgeryAuthor Type: PhysicianType: Discharge SummariesFiled: 10/09/2017 12:59 PMNote Text:DISCHARGE SUMMARYPATIENT NAME: Lisseth Sandhu ADMISSION DATE: 10/03/2017MRN: [id number] DISCHARGE DATE: 10/09/2017ATTENDING PHYSICIAN: Sandro Ferrell FOR HOSPITALIZATION: diverticulitisDIAGNOSIS: Active Problems: Hypertension Diverticulitis of colon with perforationResolved Problems: Malnutrition of mild degree (HCC)OPERATIONS DURING HOSPITALIZATION: NonePROCEDURES DURING HOSPITALIZATION: No procedures performedHOSPITAL COURSE:62 y/o female admitted sigmoid diverticulitis. She was made NPO andstarted on IV antibiotics and monitored closely. As her pain improved herdiet was advanced. She was then discharged home in stable condition on10/09/17 on oral antibiotics.LABS AND PROCEDURES PENDING AT DISCHARGE: No pending results.CONSULTING TEAMS DURING HOSPITALIZATION: SICUPATIENT CONDITION AT DISCHARGE: StableDISCHARGE DISPOSITION: Home/Self CareDISCHARGE MEDICATION:Current Discharge Medication ListSTART taking these medicationsmetroNIDAZOLE (FLAGYL) 500 mgTake 500 mg by mouth three times daily.Qty: 27 tablet Refills: 0ciprofloxacin HCl (CIPRO) 500 mgTake 500 mg by mouth twice daily.Qty: 14 tablet Refills: 0CONTINUE these medications which have NOT CHANGEDbenazepril (LOTENSIN) 20 mgTake 20 mg by mouth once daily.FUTURE APPOINTMENTS:Dr. Terry and PC in 2-4 weeksTIME OF CARE (Use first blank if not applicable): TIME OF CARE: DischargeManagement: I personally spent greater than 30 minutes involved in thedischarge management of this patient.SIGNATURE: Dawna Castillo MD PATIENT NAME: Lisseth WagnerATE: October 09, 2017 : 10:58 AM PAGER/CONTACT #: [phone] GENERAL SURGERY STAFF:I have personally seen and evaluated this patient and participated in thekey components of this encounter. I discussed the management of this casewith the surgery resident team and independently confirmed the findingsand plan of care as documented either attached or in their separate notefrom today. Any corrections or additional notes are made as needed.Active Hospital Problems Diagnosis Date Noted- Hypertension 10/04/2017_ diverticulitis managed non-operativelyAssessment and Plan:f/u Tamar Manning MD, FACSSection of Trauma, Surgery Critical Care, and Acute Care SurgeryPager: [phone]: [phone] [address] [facility] Hemogramon 10-09-2017 Erythrocyte distribution width Auto Ratio (RBC) 14.4 % Normal 11.7-14.4 [facility] Comment on above: Performed By: #### M AG ####[place] [address] Erythrocytes (RBC) 3.37 mil/cmm Low 3.93-5.22 [facility] Comment on above: Performed By: #### M AG ####[address] [address] Hematocrit (HCT) 29.2 % Low 34.1-44.9 [facility] Comment on above: Performed By: #### M AG ####[address] [address] Hemoglobin mass conc (Bld) 9.4 g/dL Low 11.2-15.7 [facility] Comment on above: Performed By: #### M AG ####[place] [address] MCH 27.9 pg Normal 25.6-32.2 [facility] Comment on above: Performed By: #### M AG ####[place] [address] MCHC mass conc (RBC) 32.2 % Normal 31.6-34.8 [facility] Comment on above: Performed By: #### M AG ####[address] [address] MCV 86.6 fL Normal 79.4-94.8 [facility] Comment on above: Performed By: #### M AG ####[place] [address] Nucleated erythrocytes 0.02 thou/cmm High 0.00-0.01 [facility] Comment on above: Performed By: #### M AG ####[place] [address] Nucleated RBC % 0.2 % Normal 0.0-0.2 [facility] Comment on above: Performed By: #### M AG ####[place] [address] Platelet mean volume (PMV) 10.0 fL Normal 9.4-12.3 [facility] Comment on above: Performed By: #### M AG ####[place] [address] Platelets 275 thou/cmm Normal 182-369 [facility] Comment on above: Performed By: #### M AG ####[place] [address] RDW SD 45.9 fl Normal 36.4-46.3 [facility] Comment on above: Performed By: #### M AG ####[place] [address] WBC (Leukocytes) 10.75 thou/cmm High 3.98-10.04 [facility] Comment on above: Performed By: #### M AG ####[place] [address] Hepatic Panelon 10-09-2017 Alkaline phosphatase (ALP) 50 U/L Normal 46-116 [facility] Comment on above: Performed By: #### M AG ####[place] [address] Bilirubin Ql (U) 0.4 mg/dL Normal 0.2-1.0 [facility] Comment on above: Performed By: #### M AG ####[address] [address] Protein 5.4 g/dL Low 6.4-8.2 [facility] Comment on above: Performed By: #### M AG ####[address] [address] Alanine aminotransferase (ALT) 28 U/L Normal 12-78 [facility] Comment on above: Performed By: #### M AG ####[address] [address] Aspartate aminotransferase (AST) 21 U/L Normal 9-37 [facility] Comment on above: Performed By: #### M AG ####[address] [address] Bilirubin (total) 0.11 mg/dL Normal 0.00-0.20 [facility] Comment on above: Performed By: #### M AG ####[address] [address] Albumin 2.3 g/dL Low 3.4-5.0 [facility] Comment on above: Performed By: #### M AG ####[address] [address] MDRD GFRon 10-09-2017 eGFR (non-black) mL/min/{1.73_m2} Normal >60mL/m in/ 1.73m2 [facility] Comment on above: Result Comment: If t he patient is , multiply the result by 1.210. Performed By: #### M AG ####[address] [address] Magnesium Bloodon 10-09-2017 Magnesium 1.8 mg/dL Normal 1.6-2.6 [facility] Comment on above: Performed By: #### M AG ####[address] [address] PLAN OF CAREon 10-09-2017 PLAN OF CARE HNO ID: [id number] thor: Melody Marinelli (Pharmacist)Service: PharmacyAuthor Type: PharmacistType: Plan of CareFiled: 10/09/2017 3:23 PMNote Text:PHARMACY DISCHARGE MEDICATION COUNSELINGPATIENT NAME: Lisseth AllredN: [id number] of SERVICE: October 09, 2017TIME of SERVICE: 3:23 PMThe patient accepted medication counseling for the discharge medicationsbelow. The patient was given the opportunity to ask questions regardingmedication indication, interactions and side effects.Discharge Medications:Discharge Medication List as of 10/09/2017 11:10 AMSTART taking these medicationsmetroNIDAZOLE (FLAGYL) 500 mg tabletTake 1 tablet by mouth three times daily for 9 days.Print RX, Disp-27tablet, R-0ciprofloxacin HCl (CIPRO) 500 mg tabletTake 1 tablet by mouth twice daily for 9 days.Print RX, Disp-14 tablet,R-0CONTINUE these medications which have NOT CHANGEDbenazepril (LOTENSIN) 20 mg tabletTake 20 mg by mouth once daily.Historical Med, Long-termPatient verbalizes understanding of counseling.Signature: MELODY MARINELLI, PHARMACISTPager: [phone]: October 09, 2017Time: 3:[address] [facility] PROGRESSon 10-09-2017 PROGRESS HNO ID: [id number] thor: Tamie Mckeon (Sewing Teacher) Trevorervice: General SurgeryAuthor Type: Nurse SpecialistType: Progress NotesFiled: 10/09/2017 8:07 AMNote Text:Emergency General Surgery Progress NoteSERVICE DATE: 10/09/2017 Time: 6:55 AMSUBJECTIVE:Feeling much better, less distended, denies SOB, using incentivespirometer. Hoping to go home todayTolerating diet DIET GASTRO INTESTINALNausea NoEmesis NoFlatus YesBowel movement YesPain Controlled YesAmbulating YesOBJECTIVE:Vitals:Temp (24hrs), Av.8 ?C (98.3 ?F), Min:36.6 ?C (97.9 ?F), Max:37.2 ?C(99 ?F)BP 154/81 Pulse 73 Temp 36.7 ?C (98.1 ?F) (Oral) Resp 18 Ht152.4 cm (5') Wt 70.5 kg (155 lb 6.8 oz) SpO2 92% BMI 30.35 kg/m?O2 Therapy: Room AirIANDO:Date 10/08/17 07 - 10/09/17 0659 10/09/17 07 - 10/10/17 0659Shift 0471-9821 6853-6900 7512-8656 24 Hour Total 2306-1209 [id number] 24 Hour TotalINTAKE PO 480 420 900 PO 480 420 900 IV 50 200 100 350 Ceftriaxone IV 50 50 Flagyl IV 200 100 300 Shift Total 530 620 100 1250OUTPUT Urine 2 2 1 5 Urine Not Saved 2 2 1 5 # of BMs Number of BMs 1 x 1 x Shift Total 2 2 1 5Weight (kg) 72.7 72.7 70.5 70.5 70.5 70.5 70.5 70.5MEDICATIONSCurrent Facility-Administered Medications:potassium-sod ium phosphates 2 Packet (NEUTRA-PHOS,PHOS-NAK) 2 Packet ORALTID after MEALSdiphenhydrAMINE 25 mg (BENADRYL) 25 mg ORAL q 6 H PRNdextrose 5% in LR infusion (D5-LR) 5 mL/hr INTRAVENOUS CONTINUOUSmorphine 2-4 mg injection 2-4 mg INTRAVENOUS q 4 H PRNenoxaparin 40 mg injection (LOVENOX) 40 mg SUBCUTANEOUS DAILYmetroNIDAZOLE 500 mg PREMIX piggyback (FLAGYL) 500 mg INTRAVENOUS q 8 Hpantoprazole 40 mg injection (PROTONIX) 40 mg INTRAVENOUS DAILY (6 AM)cefTRIAXone iv piggyback 1 g in dextrose (iso-osmotic) 50 mL (ROCEPHIN) 1g INTRAVENOUS q 24 Hacetaminophen 650 mg tab(s) (TYLENOL) 650 mg ORAL q 6 H PRNoxyCODONE IR 2.5-5 mg tab(s) (ROXICODONE) 2.5-5 mg ORAL q 4 H PRNlisinopril 10 mg tab(s) (ZESTRIL, PRINIVIL) 10 mg ORAL DAILYondansetron (PF) 4 mg injection (ZOFRAN) 4 mg INTRAVENOUS q 4 H PRNLabs:Recent Labs 10/09/180[address] NA 140 -- 144K 3.3* -- 3.1*CHLOR 110* -- 110*CO2 28 -- 31BUN 8 -- 11CREAT 0.64 -- 0.69GLUC 110* -- 101*ANION 5* -- 6*CA 7.4* -- 7.6*MG 1.8 -- 1.8P 1.9* -- 2.1*ALB 2.3* -- 2.3*AST 21 -- 15ALT 28 -- 27ALKPHOS 50 -- 48TBILI 0.4 -- 0.5WBC -- 10.75* 10.47*HB -- 9.4* 10.0*HCT -- 29.2* 31.3*PLT -- 275 248Exam:GENERAL: No distress, AlertNEURO: AANDOx3, CN II-XII grossly intactHEENT: normocephalic, atraumaticLUNGS: Unlabored breathing on RACARDIAC: Regular rate and rhythm as aboveABDOMEN: Soft, non-tender, mild distention with bowel soundsEXTREMITIES: QUISPE, No deformities, No edemaSKIN: Skin color, texture, turgor normalASSESSMENT AND PLAN:Active Hospital Problems Diagnosis Date Noted- Malnutrition of mild degree (HCC) 10/07/2017- Diverticulitis of colon with perforation 10/04/2017- Hypertension 10/04/201763 year old female with perforated diverticulitis and cholelithiasis.?- Pain control- Continue Ceftriaxone/Flagyl- Lovenox, Ambulate, IS- Hypokalemia, Hypophosphatemia- Replace PO (patient unable to tolerate IVreplacement)- Possible discharge today on PO ABXSIGNATURE: Tamie Campuzano, MILK SAMPLER.CANE FLUME WATCHMAN PATIENT NAME: Lisseth Gillette: October 09, 2017 : 7:55 AM OFFICE: [id number] General Surgery Service Pager:For questions or concerns Mon-Fri 6a-5p please page [phone].After 5pm and on Weekends and Holidays, please page [phone]. Normal [facility] Phosphorus Bloodon 8 Phosphate 1.9 mg/dL Critically low 2.5-4.9 [facility] Comment on above: Result Comment: RESU LT RECHECKED Performed By: #### G FR ####[facility] [place], [place] [address] Basic Panelon 10-08-2017 Creatinine 0.69 mg/dL Normal 0.51-0.95 [facility] Comment on above: Performed By: #### M AG ####[facility] [place], [place] [address] Glucose mass conc 101 mg/dL High 70-99 [facility] Comment on above: Performed By: #### M AG ####[address] [address] Urea nitrogen 11 mg/dL Normal 7-18 [facility] Comment on above: Performed By: #### M AG ####[place] [address] Anion gap 6 mmol/L Low 8-16 [facility] Comment on above: Performed By: #### M AG ####[address] [address] Calcium 7.6 mg/dL Low 8.5-10.1 [facility] Comment on above: Performed By: #### M AG ####[address] [address] CO2 31 mmol/L Normal 21-32 [facility] Comment on above: Performed By: #### M AG ####[place] [address] Chloride 110 mmol/L High 98-107 [facility] Comment on above: Performed By: #### M AG ####[place] [address] Potassium molar conc 3.1 mmol/L Low 3.5-5.1 [facility] Comment on above: Performed By: #### M AG ####[place] [address] Sodium 144 mmol/L Normal 136-145 [facility] Comment on above: Performed By: #### M AG ####[place] [address] CASE MANAGEMon 10-08-2017 CASE MANAGEM HNO ID: [id number] thor: Lisa Sherwood (Rn), RNService: Care ManagementAuthor Type: Registered NurseType: Care Mgt Progress NoteFiled: 10/08/2017 7:52 AMNote Text:CARE MANAGEMENT PROGRESS NOTESERVICE DATE: 10/08/2017SERVICE TIME: 7:48 AM LOS: 4 daysChart reviewed. Remains on IV Ceftriaxone and Flagyl. Met with patient atBS. DC plan remains return home with family.SIGNATURE: Lisa Sherwood RN PATIENT NAME: Lisseth Gillette: October 08, 2017 : 7:48 AM PAGER/CONTACT #: [phone] [facility] CHEST 2 VIEWSon 10-08-2017 CHEST [address] [facility] APPROVED BY: Adam Sierra MD EXAMINATION: CHEST RADIOGRAPH (2 VIEW FRONTAL & LATERAL) Clinical History: Shortness of breath.MQ: XC2_5Comparison: Outside chest radiographs 10/03/2017. RESULT: The frontal radiograph is obtained in apical lordotic patient position. Lines, tubes, and devices: None. Lungs and pleura: There are bibasilar opacities with loss of visualization of the diaphragm and blunting of the costophrenic angles. Scattered granulomatous calcifications. Cardiomediastinal silhouette: There is silhouetting of the inferior heart borders. The cardiac silhouette appears upper limits of normal in size. Other: None. IMPRESSION: Bilateral pleural effusions with associated atelectasis or consolidations. Findings are new since comparison chest radiographs. Normal [facility] Hemogramon 10-08-2017 Erythrocyte distribution width Auto Ratio (RBC) 14.5 % High 11.7-14.4 [facility] Comment on above: Performed By: #### P 14 ####[facility] [place], [place] [address] Erythrocytes (RBC) 3.53 mil/cmm Low 3.93-5.22 [facility] Comment on above: Performed By: #### P 14 ####[facility] [place], [place] [address] Hematocrit (HCT) 31.3 % Low 34.1-44.9 [facility] Comment on above: Performed By: #### P 14 ####[facility] [place] [address] Hemoglobin mass conc (Bld) 10.0 g/dL Low 11.2-15.7 [facility] Comment on above: Performed By: #### P 14 ####[place] [address] MCH 28.3 pg Normal 25.6-32.2 [facility] Comment on above: Performed By: #### P 14 ####[place] [address] MCHC mass conc (RBC) 31.9 % Normal 31.6-34.8 [facility] Comment on above: Performed By: #### P 14 ####[place] [address] MCV 88.7 fL Normal 79.4-94.8 [facility] Comment on above: Performed By: #### P 14 ####[place] [address] Platelet mean volume (PMV) 10.0 fL Normal 9.4-12.3 [facility] Comment on above: Performed By: #### P 14 ####[place] [address] Platelets 248 thou/cmm Normal 182-369 [facility] Comment on above: Performed By: #### P 14 ####[place] [address] RDW SD 46.5 fl High 36.4-46.3 [facility] Comment on above: Performed By: #### P 14 ####[place] [address] WBC (Leukocytes) 10.47 thou/cmm High 3.98-10.04 [facility] Comment on above: Performed By: #### P 14 ####[place] [address] Hepatic Panelon 10-08-2017 Alkaline phosphatase (ALP) 48 U/L Normal 46-116 [facility] Comment on above: Performed By: #### M AG ####[place] [address] Bilirubin Ql (U) 0.5 mg/dL Normal 0.2-1.0 [facility] Comment on above: Performed By: #### M AG ####[facility] [place], [place] [address] Protein 5.4 g/dL Low 6.4-8.2 [facility] Comment on above: Performed By: #### M AG ####[address] [address] Alanine aminotransferase (ALT) 27 U/L Normal 12 [facility] Comment on above: Performed By: #### M AG ####[place] [address] Aspartate aminotransferase (AST) 15 U/L Normal 9 [facility] Comment on above: Performed By: #### M AG ####[address] [address] Bilirubin (total) 0.17 mg/dL Normal 0.00-0.20 [facility] Comment on above: Performed By: #### M AG ####[address] [address] Albumin 2.3 g/dL Low 3.4-5.0 [facility] Comment on above: Performed By: #### M AG ####[address] [address] MDRD GFRon 10-08-2017 eGFR (non-black) mL/min/{1.73_m2} Normal >60mL/m in/ 1.73m2 [facility] Comment on above: Result Comment: If t he patient is , multiply the result by 1.210. Performed By: #### M AG ####[address] [address] Magnesium Bloodon 10-08-2017 Magnesium 1.8 mg/dL Normal 1.6-2.6 [facility] Comment on above: Performed By: #### P 14 ####[address] [address] PROGRESSon 10-08-2017 PROGRESS HNO ID: [id number] thor: Janee (Jaqui) Paule: General SurgeryAuthor Type: ResidentType: Progress NotesFiled: 10/08/2017 8:31 AMNote Text: Attestation signed by Perry Manning at 10/08/2017 2:23 PMRecovering Liam Manning MD -------Emergency General Surgery Progress NoteSERVICE DATE: 10/08/2017SUBJECTIVE:NAEON . No nausea or vomiting. States abdominal distension feeling hasimproved. Asking for advancing diet. +BM/F. No CP/SOB, F/C.OBJECTIVE:Vitals:Temp (24hrs), Av.9 ?C (98.5 ?F), Min:36.4 ?C (97.5 ?F), Max:37.3 ?C(99.1 ?F)BP 134/67 Pulse 74 Temp 37.2 ?C (99 ?F) (Temporal Artery) Resp 18 Ht 152.4 cm (5') Wt 72.7 kg (160 lb 4.4 oz) SpO2 92% BMI 31.30kg/m?O2 Therapy: Room AirHOPI HEALTH CARE CENTERDO:Date 10/07/[address] - 10/08/1765810/08/[address] - 10/09/17 0659Shift 3326-6210 1843-3595 9094-8433 24 Hour Total 3037-8297 4010-76397654-7352 24 Hour TotalINTAKE PO 240 240 PO 240 240 Shift Total 240 240OUTPUT Urine 1 2 3 Urine Not Saved 1 2 3 # of BMs Number of BMs 1 x 1 x 1 x 1 x Shift Total 1 2 3Weight (kg) 69 69 72.7 72.7 72.7 72.7 72.7 72.7MEDICATIONSCurrent Facility-Administered Medications:potassium phosphate 45 mmol in NaCl 0.9% 250 mL 45 mmol INTRAVENOUS ONCEdiphenhydrAMINE 25 mg (BENADRYL) 25 mg ORAL q 6 H PRNdextrose 5% in LR infusion (D5-LR) 5 mL/hr INTRAVENOUS CONTINUOUSmorphine 2-4 mg injection 2-4 mg INTRAVENOUS q 4 H PRNenoxaparin 40 mg injection (LOVENOX) 40 mg SUBCUTANEOUS DAILYmetroNIDAZOLE 500 mg PREMIX piggyback (FLAGYL) 500 mg INTRAVENOUS q 8 Hpantoprazole 40 mg injection (PROTONIX) 40 mg INTRAVENOUS DAILY (6 AM)cefTRIAXone iv piggyback 1 g in dextrose (iso-osmotic) 50 mL (ROCEPHIN) 1g INTRAVENOUS q 24 Hacetaminophen 650 mg tab(s) (TYLENOL) 650 mg ORAL q 6 H PRNoxyCODONE IR 2.5-5 mg tab(s) (ROXICODONE) 2.5-5 mg ORAL q 4 H PRNlisinopril 10 mg tab(s) (ZESTRIL, PRINIVIL) 10 mg ORAL DAILYondansetron (PF) 4 mg injection (ZOFRAN) 4 mg INTRAVENOUS q 4 H PRNLabs:Recent Labs 5 NA 144 146*K 3.1* 3.0*CHLOR 110* 115*CO2 31 28BUN 11 9CREAT 0.69 0.58GLUC 101* 123*ANION 6* 6*CA 7.6* 7.2*MG 1.8 1.9P 2.1* 3.2ALB 2.3* 2.3*AST 15 14ALT 27 31ALKPHOS 48 48TBILI 0.5 0.4WBC 10.47* 9.92HB 10.0* 9.6*HCT 31.3* 30.5*PLT 248 210Exam:GENERAL: No distress, AlertLUNGS: Unlabored breathingCARDIAC: Regular rate and rhythmABDOMEN: Soft, slightly TTP bilateral lower quadrants. No rebound orguarding,EXTREMITIES: MAEASSESSMENT AND PLAN:Active Hospital Problems Diagnosis Date Noted- Malnutrition of mild degree (HCC) 10/07/2017- Diverticulitis of colon with perforation 10/04/2017- Hypertension 10/04/201763 year old female with perforated diverticulitis and cholelithiasis.- CLD, ADAT- Ceftriaxone/Flagyl- AM labs pending- Pain control.- LFTs pending- DVT ppx with lovenox.- Keesha K and Tobi Roger MDGenecleveland clinic [facility] Surgery ResidentMay 2017 6:05 [facility] General Surgery Service Pager:For questions or concerns Mon-Fri 6a-5p please page [phone].After 5pm and on Weekends and Holidays, please page [phone] if in ICU or 2174if on RNF. Normal [facility] Phosphorus Bloodon 8 Phosphate 2.1 mg/dL Low 2.5-4.9 [facility] Comment on above: Performed By: #### M AG ####[place] [address] Basic Panelon 10-07-2017 Creatinine 0.58 mg/dL Normal 0.51-0.95 [facility] Comment on above: Performed By: #### P 14 ####[place] [address] Calcium 7.2 mg/dL Low 8.5-10.1 [facility] Comment on above: Performed By: #### P 14 ####[place] [address] Glucose mass conc 123 mg/dL High 70-99 [facility] Comment on above: Performed By: #### P 14 ####[place] [address] Urea nitrogen 9 mg/dL Normal 7-18 [facility] Comment on above: Performed By: #### P 14 ####[place] [address] Anion gap 6 mmol/L Low 8-16 [facility] Comment on above: Performed By: #### P 14 ####[address] [place] [address] CO2 28 mmol/L Normal 21-32 [facility] Comment on above: Performed By: #### P 14 ####[facility] [place], [place] [address] Chloride 115 mmol/L High 98-107 [facility] Comment on above: Performed By: #### P 14 ####[facility] [place], [place] [address] Potassium molar conc 3.0 mmol/L Low 3.5-5.1 [facility] Comment on above: Performed By: #### P 14 ####[facility] [place] [address] Sodium 146 mmol/L High 136-145 [facility] Comment on above: Performed By: #### P 14 ####[place] [address] CASE MGT INIT ASSESon 2017 CASE MGT INIT CHEMA HNO ID: [id number] thor: Steph Sheridan (Rn), RNService: Care ManagementAuthor Type: Registered NurseType: Care Mgt Initial AssessmentFiled: 10/07/2017 3:40 PMNote Text:CARE MANAGEMENT: ASSESSMENT AND DISCHARGE PLANSERVICE DATE: 10/07/2017SERVICE TIME: 3:38 PMPRIMARY CARE PHYSICIAN:Jojo Ray [facility]PITALhone: [phone] STATUS: InpatientMEDICAL:Patient/ 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 NoAdvance Directive: Has living will and HPOA (spouse, Raheem)Health Literacy:1. How often do you need to have someone help you when you readinstructions, pamphlets, or other written material from your doctor orpharmacy? Never - 12. How confident are you filling out medical forms by yourself? Extremely- 1If Patient scores > 3 on either question, the following interventions wereput into place:Patient did not score > 3FUNCTIONAL AND COGNITIVE/BEHAVIORALPRIOR TO ADMISSION:Baseline Mental Status: Alert AND Oriented, Person, Place , Time andSituationFunctional Status: IndependentDoes Patient Currently Receive Any Community Services or Home Care? NoneEquipment Prior to Admission: NoneHas the Patient Been in a Penitentiary Facility in the Past 30 days? NoSOCIAL:Living Arrangement: Home, [facility]. 1 step to enterLives With: SpouseFinancial Resources: Employed: full timePrimary Contact: Extended Emergency Contact InformationPrimary Emergency Contact: PhoebeOmarCaylahermilo Bsqmej Pzeehrsn: SpouseSecondary Emergency Contact: Logan MaciaskortneyCaylahermilo Oppflw Yrqlpook: DaughterSupportive: YesOther Important Patient Contacts: NoneCaregiver Assessment:Caregiver is ready, willing and able to meet the patient's needs asrecommended by the inter-professional team? No Caregiver NeededPatient's transition needs and plan for meeting these needs:Does the patient have an acute stroke diagnosis, or has the patient had astroke during this admission? NoMedication Adherence:I am convinced of the importance of my prescription medication: Agreemostly - 0I worry that my prescription medication will do more harm than good to meDisagree mostly - 0I feel financially burdened by my izb-pz-wygzpj expenses for myprescription medication: Disagree completely - 0Patient is categorized as low risk < 2Are you interested in bedside delivery of your medications? YesFood Concerns:In the Last Month, Have You had Trouble Getting Food? No trouble gettingfoodDuring the Last Month, Have You Worried Whether Your Food Would Run OutBefore You Had Enough Money to Buy More? NoIs the Patient Psychosocially Complex? NoASSESSMENT AND PLAN:Medical Needs: NonePsychosocial Needs: NoneFREEDOM OF CHOICE EXPLAINED:N/APOTENTIAL TRANSITION PLANSNo Services IndicatedPlans to return home with spouse when medically ready for discharge.SIGNATURE: Steph Sheridan RN PATIENT NAME: Lisseth WagnerATE: October 07, 2017 : 3:38 PM PAGER/CONTACT #: [phone] [facility] Hemogramon 10-07-2017 Erythrocyte distribution width Auto Ratio (RBC) 14.6 % High 11.7-14.4 [facility] Comment on above: Performed By: #### P 14 ####[facility] [place] [address] Erythrocytes (RBC) 3.42 mil/cmm Low 3.93-5.22 [facility] Comment on above: Performed By: #### P 14 ####[facility] [place] [address] Hematocrit (HCT) 30.5 % Low 34.1-44.9 [facility] Comment on above: Performed By: #### P 14 ####[place] [address] Hemoglobin mass conc (Bld) 9.6 g/dL Low 11.2-15.7 [facility] Comment on above: Performed By: #### P 14 ####[place] [address] MCH 28.1 pg Normal 25.6-32.2 [facility] Comment on above: Performed By: #### P 14 ####[place] [address] MCHC mass conc (RBC) 31.5 % Low 31.6-34.8 [facility] Comment on above: Performed By: #### P 14 ####[place] [address] MCV 89.2 fL Normal 79.4-94.8 [facility] Comment on above: Performed By: #### P 14 ####[place] [address] Platelet mean volume (PMV) 10.2 fL Normal 9.4-12.3 [facility] Comment on above: Performed By: #### P 14 ####[place] [address] Platelets 210 thou/cmm Normal 182-369 [facility] Comment on above: Performed By: #### P 14 ####[place] [address] RDW SD 47.6 fl High 36.4-46.3 [facility] Comment on above: Performed By: #### P 14 ####[facility] [place], [place] [address] WBC (Leukocytes) 9.92 thou/cmm Normal 3.98-10.04 [facility] Comment on above: Performed By: #### P 14 ####[facility] [place], [place] [address] Hepatic Panelon 10-07-2017 Alkaline phosphatase (ALP) 48 U/L Normal 46-116 [facility] Comment on above: Performed By: #### P 14 ####[facility] [place], [place] [address] Alanine aminotransferase (ALT) 31 U/L Normal 12-78 [facility] Comment on above: Performed By: #### P 14 ####[address] [address] Bilirubin (total) 0.14 mg/dL Normal 0.00-0.20 [facility] Comment on above: Performed By: #### P 14 ####[address] [address] Bilirubin Ql (U) 0.4 mg/dL Normal 0.2-1.0 [facility] Comment on above: Performed By: #### P 14 ####[address] [address] Protein 5.4 g/dL Low 6.4-8.2 [facility] Comment on above: Performed By: #### P 14 ####[facility] [place], [place] [address] Aspartate aminotransferase (AST) 14 U/L Normal 9-37 [facility] Comment on above: Performed By: #### P 14 ####[address] [address] Albumin 2.3 g/dL Low 3.4-5.0 [facility] Comment on above: Performed By: #### P 14 ####[address] [address] MDRD GFRon 10-07-2017 eGFR (non-black) mL/min/{1.73_m2} Normal >60mL/m in/ 1.73m2 [facility] Comment on above: Result Comment: If t he patient is , multiply the result by 1.210. Performed By: #### P 14 ####[facility] [place], [place] [address] Magnesium Bloodon 10-07-2017 Magnesium 1.9 mg/dL Normal 1.6-2.6 [facility] Comment on above: Performed By: #### P 14 ####[facility] [place], [place] [address] NUTRITIONon 10-07-2017 NUTRITION HNO ID: [id number] thor: Gracie Shields (Rd)Service: Nutrition TherapyAuthor Type: Registered DietitianType: NutritionFiled: 10/07/2017 3:46 PMNote Text:NUTRITION THERAPY INITIAL ASSESSMENTSERVICE DATE: 10/07/2017SERVICE TIME: 15:30RECOMMENDED MALNUTRITION DIAGNOSIS: MILD PROTEIN-CALORIE MALNUTRITIONIn the context of Acute Illness or Injury based on:Insufficient Energy Intake: less than or equal to 50% for greater than orequal to 5 daysNUTRITION CARE PLAN:Problem, Etiology and Signs/Symptoms:Suboptimal oral intake related to inability to consume sufficient amountdue to GI symptoms as evidenced by pt with perforation of sigmoid colondue diverticulitis, abdominal pain, nausea.Intervention:1. Ensure Clear BID to provide 240 kcals, 8 grams protein each2. Follow for diet adv/toleranceMonitor and Evaluation:Goal: Meet >75% of estimated needsMonitor fluid/electrolyte balanceMonitor labs, I/Os, vital signs, weightDischarge Nutrition Recommendations:Diet: CHO Controlled, pt reports DM dx [place] son for Assessment:NPO/Clear Liquids x 3 daysPer HPI: This is a 62 year old female who presents with abd pain since theAM of 10/02. Initially described as pressure then worsened. +fevers athome. Had a colonscopy this past fall which was just positive fordiverticulosis. Presented to ED 10/[address] showed perforateddiverticulitis and periportal edema. In our ED she was just complainingof pain, had been afebrile since arrival, and had mild nausea.Pt started on antibiotics and IVFs.Active Hospital Problems Diagnosis Date Noted- Diverticulitis of colon with perforation 10/04/2017- Hypertension 10/04/2017PAST MEDICAL HISTORYDiagnosis Date- HypertensionPAST SURGICAL HISTORYProcedure Laterality Date- SECTION HXPresent Diet Order: Clear LiquidNPO from 10/04- 10/05Enteral Access: noneNutritional Intake Prior to Admission: <50% estimated energy need over thepast 5 day(s). Met with pt in regards to nutritional intake. Pt reports POintake has been very poor over the past 5 days due to abdominal pain andnausea. Pt stated nausea is now improved. She ate approximately 50% ofclear liquids for lunch. Pt reports feeling bloated after lunch today.Prior to admission pt was eating very little due to intolerance and foodworsening abdominal pain.GI symptoms: abdominal pain, last BM 10/06Abdominal Exam: abdomen is soft per clinical documentationIs the patient having any pain that is interfering with oral/enteralintake? NoANTHROPOMETRICSHeight: 152.4 cm (5')Admission Weight: 59 kg (130 lb)- question accuracy?Current Weight: 69 kg (152 lb 3.2 oz)Body mass index is 29.72 kg/m?. overweightWeight has increased by 10.9 kg representing 18.5 % weight change. Weightchange from pt reported UBW to current weight.Bed weight during visit 69.9 kg - after bed was zeroed. Pt reports UBW is130 lbs and she weighs herself regularly. Pt does feel she is retainingwater currently.Last 10 Encounter Wt Readings: Date: Wt: 10/03/2017 69 kg (152 lb 3.2 oz)Melvin Body Weight: 45.5 kgEstimated kilocalorie needs: 9492-8261 kilocalories determined by 25-30kcal/kgEstimated protein needs: 46-55 grams determined by 1.0-1.2 g/kg IdealweightEstimated fluid needs: 1365+ milliliters based on 1 mL per kcalNUTRITION FOCUSED PHYSICAL EXAM:Subcutaneous Fat LossOrbital No fat lossTriceps No fat lossMid-axillary at the iliac crest No fat lossMuscle Loss Locations:Temporalis No muscle lossPectoralis No muscle lossDeltoids No muscle lossInterosseous No muscle lossLatissimus dorsi, trapezius No muscle lossQuadriceps No muscle lossGastrocnemius No muscle lossPotential micronutrient deficiency revealed in: No deficiency identifiedEdema: NoAscites: NoAssessment of Functional Status: Functional, yet not normal, able to be upand about with fairly normal activities for a duration of 5 daysTemperature Max in 24 hours: Temp (24hrs), Av.7 ?C (98.1 ?F), Min:36.6?C (97.9 ?F), Max:36.8 ?C (98.2 ?F) BP 148/63 Pulse 66 Temp 36.6 ?C (97.9 ?F) (Oral) Resp 20 Ht152.4 cm (5') Wt 69 kg (152 lb 3.2 oz) SpO2 93% BMI 29.72 kg/m?Recent Labs 145322QSOV 123*BUN 9CREAT 0.58NA 146*K 3.0*CHLOR 115*CO2 28ALB 2.3*HB 9.6*HCT 30.5*WBC 9.92P 3.2MG 1.9Potential Signs of Inflammation: hyperglycemia and hypoalbuminemia, CTshowed perforated diverticulitis and periportal edema.ALLERGIESAllergen Reactions- Amoxicillin Hives- Codeine Unknown- Ibuprofen SwellingCurrent Facility-Administered Medications:dextrose 5% in LR infusion (D5-LR) 5 mL/hr INTRAVENOUS CONTINUOUSmorphine 2-4 mg injection 2-4 mg INTRAVENOUS q 4 H PRNenoxaparin 40 mg injection (LOVENOX) 40 mg SUBCUTANEOUS DAILYmetroNIDAZOLE 500 mg PREMIX piggyback (FLAGYL) 500 mg INTRAVENOUS q 8 Hpantoprazole 40 mg injection (PROTONIX) 40 mg INTRAVENOUS DAILY (6 AM)cefTRIAXone iv piggyback 1 g in dextrose (iso-osmotic) 50 mL (ROCEPHIN) 1g INTRAVENOUS q 24 Hacetaminophen 650 mg tab(s) (TYLENOL) 650 mg ORAL q 6 H PRNoxyCODONE IR 2.5-5 mg tab(s) (ROXICODONE) 2.5-5 mg ORAL q 4 H PRNlisinopril 10 mg tab(s) (ZESTRIL, PRINIVIL) 10 mg ORAL DAILYondansetron (PF) 4 mg injection (ZOFRAN) 4 mg INTRAVENOUS q 4 H PRNMNT Billing Type: Initial Assess/15 min 4 unitsSIGNATURE: Gracie Shields RD PATIENT NAME: Lisseth Bhandari CermelyDATE: October 07, 2017 : 10:34 AM PAGER: [phone] [facility] PROGRESSon 10-07-2017 PROGRESS HNO ID: [id number] thor: Perry Manning RService: General SurgeryAuthor Type: PhysicianType: Progress NotesFiled: 10/07/2017 9:35 AMNote Text:Emergency General Surgery Progress NoteSERVICE DATE: 10/07/2017SUBJECTIVE:NAEON . No nausea or vomiting. +BM/F. No CP/SOB, F/C.OBJECTIVE:Vitals:Temp (24hrs), Av.8 ?C (98.2 ?F), Min:36.7 ?C (98.1 ?F), Max:36.8 ?C(98.2 ?F)BP 142/57 Pulse 64 Temp 36.8 ?C (98.2 ?F) (Temporal Artery) Resp18 Ht 152.4 cm (5') Wt 69 kg (152 lb 3.2 oz) SpO2 93% BMI29.72 kg/m?O2 Therapy: Room AirIANDO:Date 10/06/17699 - 10/07/17 0659 10/07/[address] - 10/08/17 0659Shift 4374-3048 8122-8873 4415-8988 24 Hour Total 2070-5801 8631-34857947-8295 24 Hour TotalINTAKE PO 180 180 PO 180 180 IV 3204 437 7883 D5 LR 1000 1000 Ceftriaxone IV 50 50 Potassium Phosphate 250 250 500 Flagyl IV 100 100 200 Shift Total 1580 350 1930OUTPUT Urine 404 2 406 Void (ml) 400 400 Urine Not Saved 4 2 6 # of BMs Number of BMs 1 x 1 x Shift Total 404 2 406Weight (kg) 69 69 69 69 69 69 69 69MEDICATIONSCurrent Facility-Administered Medications:dextrose 5% in LR infusion (D5-LR) 125 mL/hr INTRAVENOUS CONTINUOUSmorphine 2-4 mg injection 2-4 mg INTRAVENOUS q 4 H PRNenoxaparin 40 mg injection (LOVENOX) 40 mg SUBCUTANEOUS DAILYmetroNIDAZOLE 500 mg PREMIX piggyback (FLAGYL) 500 mg INTRAVENOUS q 8 Hpantoprazole 40 mg injection (PROTONIX) 40 mg INTRAVENOUS DAILY (6 AM)cefTRIAXone iv piggyback 1 g in dextrose (iso-osmotic) 50 mL (ROCEPHIN) 1g INTRAVENOUS q 24 Hacetaminophen 650 mg tab(s) (TYLENOL) 650 mg ORAL q 6 H PRNoxyCODONE IR 2.5-5 mg tab(s) (ROXICODONE) 2.5-5 mg ORAL q 4 H PRNlisinopril 10 mg tab(s) (ZESTRIL, PRINIVIL) 10 mg ORAL DAILYondansetron (PF) 4 mg injection (ZOFRAN) 4 mg INTRAVENOUS q 4 H PRNLabs:Recent Labs 10/06/1804NA -- 143 143K -- 3.5 3.3*CHLOR -- 115* 114*CO2 -- 23 23BUN -- 12 10CREAT -- 0.54 0.62GLUC -- 139* 124*ANION -- 9 9CA -- 7.5* 6.8*MG -- 2.0 1.8P 1.3* 0.8* 1.0*ALB -- 2.2* 2.5*AST -- 21 19ALT -- 41 41ALKPHOS -- 57 49TBILI -- 0.7 1.0WBC -- 10.86* 17.14*HB -- 9.5* 10.0*HCT -- 30.0* 32.0*PLT -- 183 168*Exam:GENERAL: No distress, AlertLUNGS: Unlabored breathingCARDIAC: Regular rate and rhythmABDOMEN: Soft, slightly TTP bilateral lower quadrants. No rebound orguarding.EXTREMITIES: MAEASSESSMENT AND PLAN:Active Hospital Problems Diagnosis Date Noted- Diverticulitis of colon with perforation 10/04/2017- Hypertension 10/04/201763 year old female with perforated diverticulitis and cholelithiasis.- CLD, KVO IVF, ADAT- Ceftriaxone/Flagyl- AM labs pending- Pain control.- LFTs pending- DVT ppx with lovenox.Janee Roger [facility] Surgery ResidentMay 2017 6:05 [facility] General Surgery Service Pager:For questions or concerns Mon-Fri 6a-5p please page [phone].After 5pm and on Weekends and Holidays, please page [phone] if in ICU or 2174if on RNF. GENERAL SURGERY STAFF:I have personally seen and evaluated this patient and participated in thekey components of this encounter. I discussed the management of this casewith the surgery resident team and independently confirmed the findingsand plan of care as documented either attached or in their separate notefrom today. Any corrections or additional notes are made as needed.Active Hospital Problems Diagnosis Date Noted- Diverticulitis of colon with perforation 10/04/2017- Hypertension 10/04/2017Assessment and Plan:Recovering well receiving antimicrobial managementPerry Manning MD, FACSSection of Trauma, Surgery Critical Care, and Acute Care SurgeryPager: [phone]: [phone] [address] [facility] Phosphorus Bloodon 8 Phosphate 3.2 mg/dL Normal 2.5-4.9 [facility] Comment on above: Performed By: #### P 14 ####[facility] [place], [place] [address] Basic Panelon 10-06-2017 Creatinine 0.54 mg/dL Normal 0.51-0.95 [facility] Comment on above: Performed By: #### L AC ####[facility] [place], [place] [address] Glucose mass conc 139 mg/dL High 70-99 [facility] Comment on above: Performed By: #### L AC ####[facility] [place], [place] [address] Urea nitrogen 12 mg/dL Normal 7-18 [facility] Comment on above: Performed By: #### L AC ####[address] [address] Calcium 7.5 mg/dL Low 8.5-10.1 [facility] Comment on above: Performed By: #### L AC ####[place] [address] Anion gap 9 mmol/L Normal 8-16 [facility] Comment on above: Performed By: #### L AC ####[address] [address] CO2 23 mmol/L Normal 21-32 [facility] Comment on above: Performed By: #### L AC ####[address] [address] Chloride 115 mmol/L High 98-107 [facility] Comment on above: Performed By: #### L AC ####[address] [address] Potassium molar conc 3.5 mmol/L Normal 3.5-5.1 [facility] Comment on above: Performed By: #### L AC ####[place] [address] Sodium 143 mmol/L Normal 136-145 [facility] Comment on above: Performed By: #### L AC ####[place] [address] Hemogramon 10-06-2017 Erythrocyte distribution width Auto Ratio (RBC) 14.4 % Normal 11.7-14.4 [facility] Comment on above: Performed By: #### L AC ####[place] [address] Erythrocytes (RBC) 3.34 mil/cmm Low 3.93-5.22 [facility] Comment on above: Performed By: #### L AC ####[place] [address] Hematocrit (HCT) 30.0 % Low 34.1-44.9 [facility] Comment on above: Performed By: #### L AC ####[place] [address] Hemoglobin mass conc (Bld) 9.5 g/dL Low 11.2-15.7 [facility] Comment on above: Performed By: #### L AC ####[place] [address] MCH 28.4 pg Normal 25.6-32.2 [facility] Comment on above: Performed By: #### L AC ####[place] [address] MCHC mass conc (RBC) 31.7 % Normal 31.6-34.8 [facility] Comment on above: Performed By: #### L AC ####[place] [address] MCV 89.8 fL Normal 79.4-94.8 [facility] Comment on above: Performed By: #### L AC ####[place] [address] Platelet mean volume (PMV) 10.0 fL Normal 9.4-12.3 [facility] Comment on above: Performed By: #### L AC ####[place] [address] Platelets 183 thou/cmm Normal 182-369 [facility] Comment on above: Performed By: #### L AC ####[place] [address] RDW SD 47.3 fl High 36.4-46.3 [facility] Comment on above: Performed By: #### L AC ####[facility] [place], [place] [address] WBC (Leukocytes) 10.86 thou/cmm High 3.98-10.04 [facility] Comment on above: Performed By: #### L AC ####[address] [address] Hepatic Panelon 10-06-2017 Alkaline phosphatase (ALP) 57 U/L Normal 46-116 [facility] Comment on above: Performed By: #### L AC ####[address] [address] Protein 5.4 g/dL Low 6.4-8.2 [facility] Comment on above: Performed By: #### L AC ####[address] [address] Alanine aminotransferase (ALT) 41 U/L Normal 12-78 [facility] Comment on above: Performed By: #### L AC ####[address] [address] Bilirubin Ql (U) 0.7 mg/dL Normal 0.2-1.0 [facility] Comment on above: Performed By: #### L AC ####[address] [address] Aspartate aminotransferase (AST) 21 U/L Normal 9-37 [facility] Comment on above: Performed By: #### L AC ####[address] [address] Bilirubin (total) 0.18 mg/dL Normal 0.00-0.20 [facility] Comment on above: Performed By: #### L AC ####[address] [address] Albumin 2.2 g/dL Low 3.4-5.0 [facility] Comment on above: Performed By: #### L AC ####[address] [address] MDRD GFRon 10-06-2017 eGFR (non-black) mL/min/{1.73_m2} Normal >60mL/m in/ 1.73m2 [facility] Comment on above: Result Comment: If t he patient is , multiply the result by 1.210. Performed By: #### P 14 ####[facility] [place], [place] [address] Magnesium Bloodon 10-06-2017 Magnesium 2.0 mg/dL Normal 1.6-2.6 [facility] Comment on above: Performed By: #### L AC ####[address] [address] NURSING PROGon 10-06-2017 NURSING PROG HNO ID: [id number] thor: Zach Barksdale (Rn), RNService: (none)Author Type: Registered NurseType: Nursing Progress NoteFiled: 10/06/2017 6:12 PMNote Text: Nursing Progress NotePatient Name: Lisseth CarrasquilloyMRN: [id number] Location: [place] [address] [address] Daily Note: Pt remembered the name of MD who did colostomy in the fall Dr.Mona Mejia at a practice in [place] on [phone]. Is the phone number.Will inform Resident so that records can be requestedThis note was completed by: Zach Barksdale RN Normal [facility] PROGRESSon 10-06-2017 PROGRESS HNO ID: [id number] thor: Sandro Smart: General SurgeryAuthor Type: PhysicianType: Progress NotesFiled: 10/06/2017 11:23 AMNote Text:Emergency General Surgery Progress NoteSERVICE DATE: 10/06/2017SUBJECTIVE:Pain slowly improving. No nausea or vomiting. +BM/F. No CP/SOB, F/C.LFT downtrendingOBJECTIVE:Vit als:Temp (24hrs), Av.8 ?C (98.3 ?F), Min:36.8 ?C (98.2 ?F), Max:36.9 ?C(98.4 ?F)BP 119/52 Pulse (!) 58 Temp 36.8 ?C (98.2 ?F) (Temporal Artery) Resp 18 Ht 152.4 cm (5') Wt 69 kg (152 lb 3.2 oz) SpO2 93% BMI29.72 kg/m?O2 Therapy: Room AirIANDO:Date 10/05/17 07 - 10/06/17 0659 10/06/17 07 - 10/07/17 0659Shift 2229-9187 3839-5262 0243-4344 24 Hour Total 5847-4898 3259-09374944-1110 24 Hour TotalINTAKE IV 1350 50 1100 2500 100 100 D5 NS 1000 1000 D5 LR 1000 1000 Ceftriaxone IV 50 50 Potassium Phosphate 250 250 Flagyl IV 100 100 200 100 100 Shift Total 1350 50 1100 2500 100 100OUTPUT Urine 301 025 676 2962 Void (ml) 300 085 385 4684 Urine Not Saved 1 1 # of BMs Number of BMs 1 x 1 x 2 x Shift Total 301 900 300 1501Weight (kg) 69 69 69 69 69 69 69 69MEDICATIONSCurrent Facility-Administered Medications:potassium phosphate 30 mmol in NaCl 0.9% 250 mL 30 mmol INTRAVENOUS ONCEpotassium phosphate 30 mmol in NaCl 0.9% 250 mL 30 mmol INTRAVENOUS ONCEdextrose 5% in LR infusion (D5-LR) 125 mL/hr INTRAVENOUS CONTINUOUSmorphine 2-4 mg injection 2-4 mg INTRAVENOUS q 4 H PRNenoxaparin 40 mg injection (LOVENOX) 40 mg SUBCUTANEOUS DAILYmetroNIDAZOLE 500 mg PREMIX piggyback (FLAGYL) 500 mg INTRAVENOUS q 8 Hpantoprazole 40 mg injection (PROTONIX) 40 mg INTRAVENOUS DAILY (6 AM)cefTRIAXone iv piggyback 1 g in dextrose (iso-osmotic) 50 mL (ROCEPHIN) 1g INTRAVENOUS q 24 Hacetaminophen 650 mg tab(s) (TYLENOL) 650 mg ORAL q 6 H PRNoxyCODONE IR 2.5-5 mg tab(s) (ROXICODONE) 2.5-5 mg ORAL q 4 H PRNlisinopril 10 mg tab(s) (ZESTRIL, PRINIVIL) 10 mg ORAL DAILYondansetron (PF) 4 mg injection (ZOFRAN) 4 mg INTRAVENOUS q 4 H PRNLabs:Recent Labs 5 5 400NA 143 143 138K 3.5 3.3* 3.3*CHLOR 115* 114* 110*CO2 23 23 22BUN 12 10 10CREAT 0.54 0.62 0.65GLUC 139* 124* 121*ANION 9 9 9CA 7.5* 6.8* 7.2*MG 2.0 1.8 1.6P 0.8* 1.0* 1.8*ALB 2.2* 2.5* 2.7*AST 21 19 20ALT 41 41 32ALKPHOS 57 49 52TBILI 0.7 1.0 1.9*WBC 10.86* 17.14* 22.81*HB 9.5* 10.0* 10.9*HCT 30.0* 32.0* 33.9*PLT 183 168* 190LACT -- -- 1.1Exam:GENERAL: No distress, AlertLUNGS: Unlabored breathingCARDIAC: Regular rate and rhythmABDOMEN: Soft, slightly TTP bilateral lower quadrants. No rebound orguarding.EXTREMITIES: MAEASSESSMENT AND PLAN:Active Hospital Problems Diagnosis Date Noted- Diverticulitis of colon with perforation 10/04/2017- Hypertension 10/04/201763 year old female with perforated diverticulitis and cholelithiasis.- NPO/IVF.- Ceftriaxone/Flagyl- persistent hypo K and Phos, again replaced this AM, phos check to follow- pain control.- trend LFT- DVT ppx with lovenox.Omar Smart MD10/06/20178:33 AMSt[facility] Pager:For questions or concerns Mon-Fri 6a-5p please page [phone].After 5pm and on Weekends and Holidays, please page [phone] if in ICU or 2174if on RNF.I saw and evaluated the patient. Discussed with the resident and agreewith resident's findings and plan as documented in the resident's note.WBC decreased. Feels better. Decreased pain on exam. Liquid diet.Sandro Smart, MDMay 2017 11:[address] [facility] Phosphorus Bloodon 8 Phosphate 1.3 mg/dL Critically low 2.5-4.9 [facility] Comment on above: Performed By: #### P 14 ####[facility] [place], [place] [address] Phosphate 0.8 mg/dL Critically low 2.5-4.9 [facility] Comment on above: Result Comment: RESU LT RECHECKED Performed By: #### L AC ####[address] [address] Basic Panelon 10-05-2017 Creatinine 0.62 mg/dL Normal 0.51-0.95 [facility] Comment on above: Performed By: #### L AC ####[address] [address] Urea nitrogen 10 mg/dL Normal 7-18 [facility] Comment on above: Performed By: #### L AC ####[address] [address] Anion gap 9 mmol/L Normal 8-16 [facility] Comment on above: Performed By: #### L AC ####[address] [address] Calcium 6.8 mg/dL Low 8.5-10.1 [facility] Comment on above: Performed By: #### L AC ####[address] [address] CO2 23 mmol/L Normal 21-32 [facility] Comment on above: Performed By: #### L AC ####[address] [address] Glucose mass conc 124 mg/dL High 70-99 [facility] Comment on above: Performed By: #### L AC ####[address] [address] Chloride 114 mmol/L High 98-107 [facility] Comment on above: Performed By: #### L AC ####[address] [address] Potassium molar conc 3.3 mmol/L Low 3.5-5.1 [facility] Comment on above: Performed By: #### L AC ####[place] [address] Sodium 143 mmol/L Normal 136-145 [facility] Comment on above: Performed By: #### L AC ####[place] [address] Hemogramon 10-05-2017 Erythrocyte distribution width Auto Ratio (RBC) 14.1 % Normal 11.7-14.4 [facility] Comment on above: Performed By: #### C BC1 ####[place] [address] Erythrocytes (RBC) 3.54 mil/cmm Low 3.93-5.22 [facility] Comment on above: Performed By: #### C BC1 ####[place] [address] Hematocrit (HCT) 32.0 % Low 34.1-44.9 [facility] Comment on above: Performed By: #### C BC1 ####[place] [address] Hemoglobin mass conc (Bld) 10.0 g/dL Low 11.2-15.7 [facility] Comment on above: Performed By: #### C BC1 ####[place] [address] MCH 28.2 pg Normal 25.6-32.2 [facility] Comment on above: Performed By: #### C BC1 ####[place] [address] MCHC mass conc (RBC) 31.3 % Low 31.6-34.8 [facility] Comment on above: Performed By: #### C BC1 ####[place] [address] MCV 90.4 fL Normal 79.4-94.8 [facility] Comment on above: Performed By: #### C BC1 ####[place] [address] Platelet mean volume (PMV) 9.7 fL Normal 9.4-12.3 [facility] Comment on above: Performed By: #### C BC1 ####[address] [address] Platelets 168 thou/cmm Low 182-369 [facility] Comment on above: Performed By: #### C BC1 ####[address] [address] RDW SD 46.8 fl High 36.4-46.3 [facility] Comment on above: Performed By: #### C BC1 ####[address] [address] WBC (Leukocytes) 17.14 thou/cmm High 3.98-10.04 [facility] Comment on above: Performed By: #### C BC1 ####[address] [address] Hepatic Panelon 10-05-2017 Alkaline phosphatase (ALP) 49 U/L Normal 46-116 [facility] Comment on above: Performed By: #### H EPAP ####[address] [address] Protein 5.5 g/dL Low 6.4-8.2 [facility] Comment on above: Performed By: #### H EPAP ####[address] [address] Alanine aminotransferase (ALT) 41 U/L Normal 12-78 [facility] Comment on above: Performed By: #### H EPAP ####[address] [address] Bilirubin (total) 0.34 mg/dL High 0.00-0.20 [facility] Comment on above: Performed By: #### H EPAP ####[address] [address] Bilirubin Ql (U) 1.0 mg/dL Normal 0.2-1.0 [facility] Comment on above: Performed By: #### H EPAP ####[address] [place], [place] [address] Aspartate aminotransferase (AST) 19 U/L Normal 9-37 [facility] Comment on above: Performed By: #### H EPAP ####[facility] [place], [place] [address] Albumin 2.5 g/dL Low 3.4-5.0 [facility] Comment on above: Performed By: #### H EPAP ####[facility] [place], [place] [address] MDRD GFRon 10-05-2017 eGFR (non-black) mL/min/{1.73_m2} Normal >60mL/m in/ 1.73m2 [facility] Comment on above: Result Comment: If t he patient is , multiply the result by 1.210. Performed By: #### L AC ####[address] [address] Magnesium Bloodon 10-05-2017 Magnesium 1.8 mg/dL Normal 1.6-2.6 [facility] Comment on above: Performed By: #### L AC ####[address] [address] PROGRESSon 10-05-2017 PROGRESS HNO ID: [id number] thor: Sandro Smart: General SurgeryAuthor Type: PhysicianType: Progress NotesFiled: 10/05/2017 12:01 PMNote Text:Emergency General Surgery Progress NoteSERVICE DATE: 10/05/2017SUBJECTIVE:No acute events.Abdominal pain improved.Passing gas.Having loose BMs with minimal blood.Ambulating.Tolerati ng diet DIET NPONausea NoEmesis NoFlatus YesBowel movement YesPain Controlled YesAmbulating YesOBJECTIVE:Vitals:Temp (24hrs), Av ?C (98.6 ?F), Min:36.3 ?C (97.3 ?F), Max:37.6 ?C(99.7 ?F)BP 123/50 Pulse 71 Temp 36.3 ?C (97.3 ?F) (Temporal Artery) Resp18 Ht 152.4 cm (5') Wt 69.4 kg (153 lb) SpO2 96% BMI 29.88kg/m?O2 Therapy: Room AirIANDO:Date 10/04/17 07 - 10/05/17 0659 10/05/[address] - 10/06/17 0659Shift 6444-8165 7686-3398 6495-7619 24 Hour Total 9171-0987 [id number] 24 Hour TotalINTAKE IV 300 1000 1000 2300 D5 NS 1000 1000 2000 Calcium IVPB 300 300 Shift Total 300 1000 1000 2300OUTPUT Urine 250 250 Void (ml) 250 250 Shift Total 250 250Weight (kg) 69.4 69.4 69.4 69.4 69.4 69.4 69.4 69.4MEDICATIONSCurrent Facility-Administered Medications:potassium phosphate 30 mmol in NaCl 0.9% 250 mL 30 mmol INTRAVENOUS ONCEenoxaparin 40 mg injection (LOVENOX) 40 mg SUBCUTANEOUS DAILYmetroNIDAZOLE 500 mg PREMIX piggyback (FLAGYL) 500 mg INTRAVENOUS q 8 Hdextrose 5% in NaCl 0.9% iv infusion 125 mL/hr INTRAVENOUS CONTINUOUSpantoprazole 40 mg injection (PROTONIX) 40 mg INTRAVENOUS DAILY (6 AM)cefTRIAXone iv piggyback 1 g in dextrose (iso-osmotic) 50 mL (ROCEPHIN) 1g INTRAVENOUS q 24 Hacetaminophen 650 mg tab(s) (TYLENOL) 650 mg ORAL q 6 H PRNoxyCODONE IR 2.5-5 mg tab(s) (ROXICODONE) 2.5-5 mg ORAL q 4 H PRNmorphine 2 mg injection 2 mg INTRAVENOUS q 4 H PRNlisinopril 10 mg tab(s) (ZESTRIL, PRINIVIL) 10 mg ORAL DAILYondansetron (PF) 4 mg injection (ZOFRAN) 4 mg INTRAVENOUS q 4 H PRNLabs:Recent Labs 5 400NA 143 138K 3.3* 3.3*CHLOR 114* 110*CO2 23 22BUN 10 10CREAT 0.62 0.65GLUC 124* 121*ANION 9 9CA 6.8* 7.2*MG 1.8 1.6P 1.0* 1.8*ALB 2.5* 2.7*AST 19 20ALT 41 32ALKPHOS 49 52TBILI 1.0 1.9*WBC 17.14* 22.81*HB 10.0* 10.9*HCT 32.0* 33.9*PLT 168* 190LACT -- 1.1Exam:GENERAL: No distress, AlertNEURO: AANDOx3, CN II-XII grossly intactHEENT: normocephalic, atraumaticLUNGS: Unlabored breathingCARDIAC: Regular rate and rhythm as aboveABDOMEN: Soft, moderately TTP bilateral lower quadrants. No rebound orguarding.EXTREMITIES: QUISPE, No deformities, No edemaSKIN: Skin color, texture, turgor normal, No rashes or lesionsASSESSMENT AND PLAN:Active Hospital Problems Diagnosis Date Noted- Diverticulitis of colon with perforation 10/04/2017- Hypertension 10/04/201763 year old female with perforated diverticulitis and cholelithiasis.- NPO/IVF.- Ceftriaxone/Flagyl. Leukocytosis is improving 17.1 (22.8).- HypoKalemia - IV replete.- HypoPhos - IV replete.- pain control.- LFTs have normalized this AM.- home medications.- DVT ppx with lovenox.SIGNATURE: Palmer Ricks MD PATIENT NAME: Lisseth Gillette: October 05, 2017 : 7:07 AM Pager: [phone] General Surgery Service Pager:For questions or concerns Mon-Fri 6a-5p please page [phone].After 5pm and on Weekends and Holidays, please page [phone] if in ICU or [phone] on RNF.I saw and evaluated the patient. Discussed with the resident and agreewith resident's findings and plan as documented in the resident's note.WBC decreased. Decreased tenderness on exam. Continue IV antibiotics.Sandro Smart, MDMay 2017 12:[address] [facility] Phosphorus Bloodon 8 Phosphate 1.0 mg/dL Critically low 2.5-4.9 [facility] Comment on above: Performed By: #### L AC ####[facility] [place] [address] CONSULTon 10-04-2017 CONSULT HNO ID: [id number] thor: Ihsan Terryvice: ADT-SICUAuthor Type: PhysicianType: ConsultsFiled: 10/04/2017 9:54 AMNote Text:SICU CONSULTSERVICE DATE: 10/04/2017SERVICE TIME: 2:01 [facility] PHYSICIAN: Keyonna Willoughby COMPLAINT: Abd painHPI: This is a 62 year old female who presents with abd pain since the AMof 10/02. Initially described as pressure then worsened. +fevers at home.Had a colonscopy this past fall which was just positive fordiverticulosis. Presented to ED 10/[address] showed perforateddiverticulitis and periportal edema. In our ED she was just complainingof pain, had been afebrile since arrival, and had mild nausea.FUNCTIONAL STATUS: IndependentNo past medical history on file. DeniesNo past surgical history on file. DeniesNo family history on file.Social HistorySubstance Use Topics- Smoking status: Not on file- Smokeless tobacco: Not on file- Alcohol use Not on file(Not in a hospital admission)ALLERGIESAllerg en Reactions- Amoxicillin Hives- Codeine Unknown- Ibuprofen SwellingCOMPLETE REVIEW OF SYSTEMS:See HPIObjectivePHYSICAL EXAM:Physical Exam Performed:NAD uncomfortable, lying with knees drawn upNL respRRRAbdomen soft, nondistended, moderately ttp bilateral lower quadrants, noPSMAEBP 114/60 Pulse 85 Temp (Src) 100.2 (Oral) Resp 22 Ht 5' 0(1.52m) Wt 130 lb (59.0kg) SpO2 98% BMI 25.39 kg/(m2).DATA:Diagnostic tests reviewed for today's visit:OSH labs and imaging reviewed, WBC 21, LA 2.1, Tbili 2.2CTAP w/ distal sigmoid/rectal thickening/fat stranding, pelvicimflammatory fluid, periportal edemaAssessment/Plan62 year old F w/ perforated diverticulitis-discussed with Dr Dickens: Pain control Nausea controlPulm: No acute issuesCV: Fluid resuscitateGU: Replace lytes PRN Rehman for IANDOGI: NPO/PPIFEN: D5NS 125ID: Cipro/flagyl 2/2 PCN allergy Trend WBCHeme: LovenoxEndo: No issuesMSK: No issuesProphylaxis: SCD PPI LovenoxT/L/D: Silvina Rehmanults: SICUDispo: SICUSIGNATURE: Omar Smart MD PATIENT NAME: Lisseth Gillette: October 04, 2017 : 2:01 AM PAGER/CONTACT #: [phone] Tbil, unexpected. Get US of RUQ and fractionate biliOn Cipro with elevated WBC,likely benefit from Rocephin. Get Procalcitoninto monitor ATB efficacy. Continue FlagylMonitor clinicallyManage HTN. LotensionOk for PO meds onlyOk for OxycodoneI provided 35 minutes of critical care services which were necessary dueto above specified injuries and illnesses. This patient has a highprobability of sudden, clinical significant deterioration, which requiredthe highest level of care and preparedness to intervene urgently. Imanaged and supervised life or organ supporting interventions that requirefrequent assessments. This time does not include time devoted to teachingand to any procedure I billed separately.I have personally seen and examined this patient and participated in thekey components of this encounter with the multi-disciplinary ICU team. Idiscussed the management of this case with the resident andreviewed/confirmed their documentation, attached or in separate note. Ipersonally reviewed today's actual images, the associated image reports,and current labs. I supervised the ordering of additional testing,imaging, labs, and/or consultations. The patient and/or family were fullyinformed of the findings and plan of care. They had the opportunity to askquestions and raise any issues of concern, all of which were answered anddealt with by me to their stated satisfaction.The critical care treatment was mainly directed to address the followingissues:(K57.20) Perforation of sigmoid colon due to diverticulitis (primaryencounter diagnosis)HTNElevated bilirubin.Management included sedation, pain control and ventilation assessmentincluding need for ventilator, weaning and/or extubation as indicated.Management of critical care illnesses are edited above by me, includingsystem by system plan and are not only limited to infectious disease andtailoring the antibiotic therapy, nutrition assessment andsupplementation, electrolyte correction and prevention of ICU relatedcomplications using ventilator bundle, sedation holiday and assessment andremoval of lines and tubes where indicated.SIGNATURE: Darek Terry MD PATIENT NAME: Lisseth Gillette: October 04, 2017 : 9:[address] [facility] Comprehensive Panelon 2017 Alkaline phosphatase (ALP) 52 U/L Normal 46-116 [facility] Comment on above: Performed By: #### P 14 ####[facility] [place], [place] [address] Bilirubin Ql (U) 1.9 mg/dL High 0.2-1.0 [facility] Comment on above: Performed By: #### P 14 ####[address] [address] Protein 5.8 g/dL Low 6.4-8.2 [facility] Comment on above: Performed By: #### P 14 ####[address] [address] Alanine aminotransferase (ALT) 32 U/L Normal 12-78 [facility] Comment on above: Performed By: #### P 14 ####[address] [address] Aspartate aminotransferase (AST) 20 U/L Normal 9-37 [facility] Comment on above: Performed By: #### P 14 ####[address] [address] Creatinine 0.65 mg/dL Normal 0.51-0.95 [facility] Comment on above: Performed By: #### P 14 ####[address] [address] Albumin 2.7 g/dL Low 3.4-5.0 [facility] Comment on above: Performed By: #### P 14 ####[address] [address] Glucose mass conc 121 mg/dL High 70-99 [facility] Comment on above: Performed By: #### P 14 ####[address] [address] Urea nitrogen 10 mg/dL Normal 7-18 [facility] Comment on above: Performed By: #### P 14 ####[facility] [place], [place] [address] Anion gap 9 mmol/L Normal 8-16 [facility] Comment on above: Performed By: #### P 14 ####[facility] [place], [place] [address] Calcium 7.2 mg/dL Low 8.5-10.1 [facility] Comment on above: Performed By: #### P 14 ####[facility] [place], [place] [address] CO2 22 mmol/L Normal 21-32 [facility] Comment on above: Performed By: #### P 14 ####[facility] [place] [address] Chloride 110 mmol/L High 98-107 [facility] Comment on above: Performed By: #### P 14 ####[address] [address] Potassium molar conc 3.3 mmol/L Low 3.5-5.1 [facility] Comment on above: Performed By: #### P 14 ####[address] [address] Sodium 138 mmol/L Normal 136-145 [facility] Comment on above: Performed By: #### P 14 ####[address] [address] ED NOTEon 10-04-2017 ED NOTE HNO ID: [id number] Author: Helga Almanzar (Rn), RN Service: (none) Author Type: Registered Nurse Type: ED Notes Filed: 10/03/2017 11:44 PM Note Text: Bed: ED-01 Expected date: 10/03/17 Expected time: 10:57 PM Means of arrival: Huang CARDOZO Comments: confusion Normal [facility] ED PROV NOTEon 10-04-2017 ED PROV NOTE HNO ID: [id number] thor: Kaylen Gardner DOService: Emergency MedicineAuthor Type: PhysicianType: ED Provider NotesFiled: 10/05/2017 12:12 AMNote Text:Attending NoteI evaluated the patient and personally participated in the ruano components. I agree with the resident's findings and plan as documented and havediscussed the case and management of the patient's care with the resident.This is a 62-[facility]. The patient states that she's had somediscomfort since Saturday including pressure around the bladder and rectum. She had a colonoscopy back in the splint she had diverticulosis but hasnever had an issue with diverticulitis. They did notice some periportaledema on the CT scan as well as elevated bilirubin in addition to thediverticulitis of the sigmoid and rectum with perforation. She receivednormal saline Cipro and Tylenol prior to transfer. The patient doesreport she did have a little bit of a fever today. She denies dysuriahematuria or burning with urination. She reports nausea but no vomitingor diarrhea. Her pain is currently well controlled.General appearance alert and nourished white female lying supine currentlyresting comfortably.HEENT pupils are equal round reactive to light extraocular muscles areintact mucous membranes are moist neck supple JVD. Cardiovascular heartregular rate and rhythm without murmurs gallops rubs. Lungs clear toauscultation bilaterally without wheezes rales rhonchi. Abdomen is softwith some tenderness to palpation across the lower abdomen. She does havebowel sounds present there is no rebound rigidity or guarding noperitoneal signs. Skin warm and dry without rashes. Neurologic alert wecan just questions appropriately deficits. Psychiatric patient'scooperative with normal affect.ED course the patient was seen by myself. [facility] Zosyn and Flagyl. The plan will be foradmission to the surgical service. They're contacted to evaluate thispatient. The care plan was reviewed with patient and family at thebedside and all other questions were answeredSignature: CORNELIO Ybarraate: 10/04/2017Time: 1:15 Jean Pierre Gardner, DO10/05/[address] [facility] ED PROV NOTE HNO ID: [id number] thor: Dillon Draper (Res), MDService: Emergency MedicineAuthor Type: ResidentType: ED Provider NotesFiled: 10/04/2017 2:02 AMNote Text: Attestation signed by Kaylen Gardner DO at 10/05/2017 12:12 AMSignature: Flora Ybarra: 10/05/2017Time: 12:12 AM -------ED Provider NotePatient Name: Lisseth AllredN: [id number] DATE: 10/03/17HistoryPatient presents with:Consult For: Perforated diverticuli. Pt reported having pressure aroundbladder and rectum, then felt she was going to vomit so she attempted tostand up then had a syncopal episode. Went to PCP, PCP sent to [facility] diagnosed with perforated diverticuli with free air in pelvis.Here for surgical consult.The patient is a 62 year old female without a signficant past medicalhistory, who presents to the ED for a surgical evaluation secondary to aperforated sigmoid diverticulitis with free air in the pelvis. The patientdescribes the pain as cramping and pressure like in character and ofmoderate severity, as she just received morphine before transfer.Associated symptoms include nausea without emesis, syncopal episode, andfevers. The patient's symptoms are made worse with palpation. The patientreceived 2 L of normal saline, ciprofloxacin, and Tylenol prior totransfer. The patient denies chest pain, diarrhea, constipation, melena,hematochezia, UTI symptoms, or additional complaints.No past medical history on file.No past surgical history on file.No family history on file.Social HistorySocial History Main Topics- Smoking status: Not on file- Smokeless tobacco: Not on file- Alcohol use Not on file- Drug use: Unknown- Sexual activity: Not on fileALLERGIESAllergen Reactions- Amoxicillin Hives- Codeine Unknown- Ibuprofen SwellingReview of SystemsConstitutional: Positive for activity change, appetite change, chills andfever.HENT: Negative for ear discharge, ear pain and rhinorrhea.Eyes: Negative for pain and redness.Respiratory: Negative for cough, chest tightness and shortness of breath.Cardiovascular: Negative for chest pain and palpitations.Gastrointest inal: Positive for abdominal pain and nausea. Negative forabdominal distention, blood in stool, constipation, diarrhea and vomiting.Genitourinary: Negative for difficulty urinating, dysuria, frequency,hematuria and urgency.Musculoskeletal: Negative for back pain, neck pain and neck stiffness.Skin: Negative for rash and wound.Neurological: Positive for syncope. Negative for facial asymmetry,weakness, numbness and headaches.Physical ExamBP 116/57 Pulse 81 Temp (Src) 99 (Oral) Resp 18 Ht 5' 0 (1.52m) Wt 130 lb (59.0kg) SpO2 97% BMI 25.39 kg/(m2).Physical ExamConstitutional: She is oriented to person, place, and time. She appearswell-developed and well-nourished. No distress.HENT:Head: Normocephalic and atraumatic.Right Ear: External ear normal.Left Ear: External ear normal.Eyes: Conjunctivae and EOM are normal. Pupils are equal, round, andreactive to light.Neck: Normal range of motion. Neck supple.Cardiovascular: Normal rate, regular rhythm and normal heart sounds. Examreveals no gallop and no friction rub.No murmur heard.Pulmonary/Chest: Effort normal and breath sounds normal. No respiratorydistress. She has no wheezes. She has no rales. She exhibits notenderness.Abdominal: Soft. Bowel sounds are normal. She exhibits no distension.There is tenderness. There is guarding.Musculoskeletal: Normal range of motion. She exhibits no edema, tendernessor deformity.Neurological: She is alert and oriented to person, place, and time. Nocranial nerve deficit. Coordination normal.Skin: Skin is warm and dry. No rash noted. No erythema. No pallor.Nursing note and vitals reviewed.Diagnostic TestingED Labs Ordered and Reviewed - No data to displayProceduresMedical Decision MakingMDMThe patient is a 62 year old female without a signficant past medicalhistory, who presents to the ED for a surgical evaluation for a perforatedsigmoid diverticulitis with free air in the pelvis. The patient ishemodynamically stable. The patient appears to be uncomfortable butnontoxic. Physical exam demonstrates pain to palpation in the lowerabdomen with voluntary guarding. CBC from outside hospital shows aleukocytosis of 21. Initial lactic acid of 2.1. BMP shows normal kidneyfunction without electrolyte abnormalities. Urinalysis was negative forgross hematuria or infection. Remaining labs were noncontributory. Thepatient received 2 L of normal saline, ciprofloxacin, and Tylenol prior totransfer. She did not receive metronidazole prior to transfer, so she wasgiven her first dose of Flagyl in the emergency department. Again, CTabdomen shows free air in the pelvis likely secondary to perforatedsigmoid diverticulitis. Surgery was consulted. She states she does notwant additional analgesia or antiemetics at this time. The patient isagreeable with admission. The patient was admitted to the SICU under 's service in critical but stable condition.Upon reevaluation, the patient is nauseated and borderline febrile. Shewas given an additional dose of Tylenol, as well as IV Morphine, IVZofran, and started on maintenance fluids.ED Course / Clinical ImpressionClinical Impressions as of October 04 0122Perforation of sigmoid colon due to diverticulitisSIGNATURE: Dillon Martineze, MDSpencer (Res) Prete, ELChpjoarh56/11/18 0128Spencer (Res) Prete, [id number]/11/18 0202Erin Jj, DO10/05/[address] [facility] HISTORY PHYSICALon 8 HISTORY PHYSICAL HNO ID: [id number] thor: Sandro Smart: General SurgeryAuthor Type: PhysicianType: HANDPFiled: 10/04/2017 7:04 PMNote Text:HISTORY AND PHYSICAL EXAMINATIONSERVICE DATE: 10/04/2017SERVICE TIME: 2:01 AMPRIMARY CARE PHYSICIAN: Keyonna Willoughby COMPLAINT: Abd painHPI: This is a 62 year old female who presents with abd pain since the AMof 10/02. Initially described as pressure then worsened. +fevers at home.Had a colonscopy this past fall which was just positive fordiverticulosis. Presented to ED 10/[address] showed perforateddiverticulitis and periportal edema. In our ED she was just complainingof pain, had been afebrile since arrival, and had mild nausea.FUNCTIONAL STATUS: IndependentNo past medical history on file. DeniesNo past surgical history on file. DeniesNo family history on file.Social HistorySubstance Use Topics- Smoking status: Not on file- Smokeless tobacco: Not on file- Alcohol use Not on file(Not in a hospital admission)ALLERGIESAllerg en Reactions- Amoxicillin Hives- Codeine Unknown- Ibuprofen SwellingCOMPLETE REVIEW OF SYSTEMS:See HPIObjectivePHYSICAL EXAM:Physical Exam Performed:NAD uncomfortable, lying with knees drawn upNL respRRRAbdomen soft, nondistended, moderately ttp bilateral lower quadrants, noPSMAEBP 114/60 Pulse 85 Temp (Src) 100.2 (Oral) Resp 22 Ht 5' 0(1.52m) Wt 130 lb (59.0kg) SpO2 98% BMI 25.39 kg/(m2).DATA:Diagnostic tests reviewed for today's visit:OSH labs and imaging reviewed, WBC 21, LA 2.1, Tbili 2.2CTAP w/ distal sigmoid/rectal thickening/fat stranding, pelvicimflammatory fluid, periportal edemaAssessment/Plan62 year old F w/ perforated diverticulitis-discussed with Dr Crespo-admit SICU-consult Dr Carranza-pain/nausea control-NPO/IVF-cipro/fla gyl as PCN allergy-serial examsEmergency General Surgery Service Pager:For questions or concerns Mon-Fri 6a-5p please page [phone].After 5pm and on Weekends and Holidays, please page [phone] if in ICU or [phone] on RNF.SIGNATURE: Omar Smart MD PATIENT NAME: Lisseth WagnerATE: October 04, 2017 : 2:01 AM PAGER/CONTACT #: [id number] saw and evaluated the patient. Discussed with the resident and agreewith resident's findings and plan as documented in the resident's note.Doing well. Abdomen soft but tender in the left lower quadrant. Noperitoneal signs. Continue nothing by mouth except meds. Antibiotics. Okayfor floor.Sandro Smart, MDMay 2017 7:[address] [facility] Hemogramon 10-04-2017 Erythrocyte distribution width Auto Ratio (RBC) 13.8 % Normal 11.7-14.4 [facility] Comment on above: Performed By: #### C BC1 ####[place] [address] Erythrocytes (RBC) 3.82 mil/cmm Low 3.93-5.22 [facility] Comment on above: Performed By: #### C BC1 ####[place] [address] Hematocrit (HCT) 33.9 % Low 34.1-44.9 [facility] Comment on above: Performed By: #### C BC1 ####[place] [address] Hemoglobin mass conc (Bld) 10.9 g/dL Low 11.2-15.7 [facility] Comment on above: Performed By: #### C BC1 ####[place] [address] MCH 28.5 pg Normal 25.6-32.2 [facility] Comment on above: Performed By: #### C BC1 ####[place] [address] MCHC mass conc (RBC) 32.2 % Normal 31.6-34.8 [facility] Comment on above: Performed By: #### C BC1 ####[place] [address] MCV 88.7 fL Normal 79.4-94.8 [facility] Comment on above: Performed By: #### C BC1 ####[place] [address] Platelet mean volume (PMV) 10.1 fL Normal 9.4-12.3 [facility] Comment on above: Performed By: #### C BC1 ####[facility] [place], [place] [address] Platelets 190 thou/cmm Normal 182-369 [facility] Comment on above: Performed By: #### C BC1 ####[facility] [place], [place] [address] RDW SD 44.8 fl Normal 36.4-46.3 [facility] Comment on above: Performed By: #### C BC1 ####[facility] [place], [place] [address] WBC (Leukocytes) 22.81 thou/cmm High 3.98-10.04 [facility] Comment on above: Performed By: #### C BC1 ####[place] [address] Lactic Acidon 10-04-2017 Lactate 1.1 mmol/L Normal 0.4-2.0 [facility] Comment on above: Performed By: #### L AC ####[place] [address] MDRD GFRon 10-04-2017 eGFR (non-black) mL/min/{1.73_m2} Normal >60mL/m in/ 1.73m2 [facility] Comment on above: Result Comment: If t he patient is , multiply the result by 1.210. Performed By: #### G FR ####[address] [address] MRSA Screenon 10-04-2017 MRSA Screen Test performed at [facility] No MRSA detected. Normal [facility] Comment on above: Performed By: #### L AC ####[address] [address] Magnesium Bloodon 10-04-2017 Magnesium 1.6 mg/dL Normal 1.6-2.6 [facility] Comment on above: Performed By: #### M AG ####[address] [address] Phosphorus Bloodon 8 Phosphate 1.8 mg/dL Critically low 2.5-4.9 [facility] Comment on above: Result Comment: RESU LT RECHECKED Performed By: #### P HOS ####[place] [id number] Procalcitoninon 10-04-2017 Procalcitonin 3.14 ng/mL Normal [facility] Comment on above: Result Comment: Leve ls <0.50 ng/mL represent a low risk of severe sepsis and/orseptic shock, while levels >2.00 ng/mL represent an elevatedrisk of severe sepsis and/or septic shock. Levels <0.50 ng/mLdo not exclude infection, as infections or systemic infectionsin early stages (<6hrs) can be associated with lowconcentrations. Levels between 0.50-2.00 ng/mL should beinterpreted in the clinical context of the patient, as a varietyof conditions such as jasmine, trauma, surgery and severecardiogenic shock can cause procalcitonin elevations. Performed By: #### P RCAS ####[place] [address] US ABD RIGHT UPPER QUADRANTo n 10-04-2017 US ABD RIGHT UPPER QUADRANT Performed at [facility] APPROVED BY: Jaron Duff MD EXAMINATION: RIGHT UPPER QUADRANT ULTRASOUND HISTORY: Abnormally elevated bilirubin TECHNIQUE: Sonography of the right upper quadrant was performed. Images were obtained and stored in a permanent archive. MQ: [id number] COMPARISON: None. RESULT: Pancreas: Normal sonographic appearance. Portions obscured: tail Liver: Echotexture: The liver is echodense suggesting fatty infiltration. No focal hepatic abnormalities identified Echogenicity: Normal Surface contour: Smooth Lesions: None. Biliary: No intrahepatic biliary duct dilation. CBD: 4 cm at the hilum. Gallbladder: Normal caliber -Contents: There are innumerable gallstones within the gallbladder. Some of these could not be dislodged from the neck of the gallbladder. The gallbladder itself is not unusually distended. There is no sonographic Ye's sign. -Wall: Normal 0.2 cm -Other: No pericholecystic fluid. Right Kidney: No hydronephrosis. 11.4 cm in length Ascites: None. IMPRESSION: Cholelithiasis. Multiple gallstones could not be dislodged from the neck of the gallbladder but there is no sonographic Ye's sign. Probable hepatic steatosis. A wet reading was sent as requested. Normal [facility] Vital Signs Date Time Vital Sign Value Performing Clinician Ana Cristina oneill 10-31-2024 09:28-0400 Body temperature 98.3 [degF] Dr. Jojo Ray MD Work Phone: [facility] 10-31-2024 09:28-0400 Diastolic blood pressure 76 mm[Hg] Dr. Jojo Ray MD Work Phone: [facility] 10-31-2024 09:28-0400 Heart rate 67 /min Dr. Jojo Ray MD Work Phone: [facility] 10-31-2024 09:28-0400 SaO2% (BldA) [Mass fraction] 96 % Dr. Jojo Ray MD Work Phone: [facility] 10-31-2024 09:28-0400 Systolic blood pressure 120 mm[Hg] Dr. Jojo Ray MD Work Phone: [facility] Encounters Encounter Date Encounter Type Care Provider Facility Start: 10-31-2024 End: 10-31-2024 Patient encounter procedure Marisol [facility]C [facility] Work Phone: Start: 10-31-2024 End: 10-31-[address] Jojo Ray MD Work Phone: [facility] Work Phone: Start: 08-17-2024 End: 08-17-[address] Jojo Ray MD Work Phone: [facility] Work Phone: Start: 08-17-2024 End: 08-17-[address] Suzy Lozano MD -Laboratory, [place] Work Phone: Start: 08-17-2024 End: 08-17-2024 ambulatory Jojo Ray Facility:[facility] Start: 04-05-2024 End: 04-05-2024 ambulatory Jojo Ray Facility:[facility] Start: 01-07-2024 ambulatory Jojo Ray Facility: [facility] Start: 01-07-2024 End: 01-07-2024 ambulatory Jojo Ray Facility:[facility] Start: 11-18-2023 End: 11-18-2023 ambulatory Jojo Ray Facility:[facility] Start: 09-06-2023 End: 09-06-[address] Jojo Ray Work Phone: [facility] Work Phone: Start: 09-06-2023 End: 09-06-[address] Jojo Ray Work Phone: [facility] Start: 08-14-2023 End: 08-14-[address] Jojo Ray Work Phone: [facility] Start: 04-30-2023 End: 04-30-[address] Jojo Ray Work Phone: [facility] Work Phone: Start: 04-30-2023 End: 04-30-[address] Jojo Ray Work Phone: [facility] Work Phone: Start: 03-27-2023 End: 03-27-[address] Jojo Ray Work Phone: [facility] Start: 01-16-2023 End: 01-16-[address] Jojo Ray Work Phone: [facility] Work Phone: Start: 01-16-2023 End: 01-16-[address] Jojo Ray Work Phone: [facility] Work Phone: Start: 01-01-2023 End: 01-01-[address] Jojo Ray Work Phone: [facility] Work Phone: Start: 01-01-2023 End: 01-01-[address] [facility] [place] Work Phone: Start: 12-18-2022 Non-patient / Non-visit Dr. Shanita Ray Work Phone: [facility] Start: 12-18-2022 End: 12-18-[address] Jojo Ray Work Phone: [facility] Work Phone: Start: 12-18-2022 End: 12-18-[address] [facility] Start: 12-03-2022 End: 12-03-2022 ambulatory [facility] Work Phone: Start: 12-03-2022 End: 12-03-2022 [facility] Start: 11-30-2022 End: 11-30-2022 ambulatory [facility] Work Phone: Start: 11-30-2022 End: 11-30-2022 Patient encounter procedure [facility] [place] Work Phone: Start: 10-11-2022 End: 10-11-2022 [facility] [place] Work Phone: Start: 07-27-2022 End: 07-27-2022 ambulatory [facility] Work Phone: Start: 07-27-2022 End: 07-27-2022 [facility] Start: 08-22-2021 End: 08-22-2021 Patient encounter procedure [facility] Start: 06-22-2021 End: 06-22-2021 Patient encounter procedure [facility], [facility] Start: 10-04-2017 End: 10-09-2017 Evaluation and management of inpatient SANDRO CRESPO [facility] Procedures Date Procedure Procedure Detail Performing Clinician Start: 08-17-2024 Urnls dip stick/tabl et reagent auto microscopy Dr. Jojo Ray MD Work Phone: Start: 08-14-2023 X-ray of both feet Dr. Jojo Ray Work Phone: Start: 03-27-2023 X-ray of both feet Dr. Jojo Ray Work Phone: Start: 01-16-2023 X-ray of both feet Dr. Jojo Ray Work Phone: Start: 01-01-2023 X-ray of both feet Dr. Jojo Ray Work Phone: Start: 11-30-2022 X-ray of both feet Start: 08-05-2019 Colonoscopy Shelia Mejia Plan of Treatment Date Care Activity Detail Author Start: 10-11-2022 [facility] Start: 08-25-2019 Colonoscopy Colonoscopy [facility] jonathan Work Phone: Nuclear Ab [Titer] i n Serum by Immunofluorescence [facility]- jonathan Work Phone: NEGATED: Highlighted row has been ruled out! Planned Goals not documented [facility] jonathan Work Phone: Payers Date Payer Category Payer Medicare [id number] 2023 Self-pay [id number] 2023 Unknown [id number] Private Health Insurance [id number] Private Health Insurance [id number] Unknown CHANDRA [id number] Unknown [id number] [id number] Unknown [id number] [id number] [id number] Unknown [id number] [id number] [id number] Unknown [id number] [id number] [id number] Unknown [id number] 2.16.8 [id number] Unknown [id number] 2.16.8 [id number] Social History Date Type Detail Facility Assertion [facility]: Start: 10-03-2017 End: 08-14-2023 Tobacco smoking status NHIS Unknown if ever smoked [facility] Start: 1955 Sex Assigned At Female [facility] Start: 08-14-2023 Tobacco smoking stat us WVIS Never smoked tobacco (finding) [facility] Start: 08-22-2024 Sex Female (finding) [facility] Functional Status Date Assessment Result Facility NEGATED: Highlighted row Functional performance Functional status health issues are not documented Disease [facility] Work Phone: Mental Status Date Assessment Result Facility NEGATED: Highlighted row Cognitive function [Interpretation] Cognitive status health issues are not documented Disease [facility] Work Phone: Progress note 10-31-2024 Note Date & Type Note Facility 10-31-2024 Progress note [facility] Progress note 10-31-2024 Note Date & Type Note Facility 10-31-2024 Progress note Note Date/Time October 31, 2024 9:47a m [facility] [address], [address] [place] [address] OFFICE VISIT Date of Service: 10/31/24 MR#: [id number] Acct: [id number] Name: LISSETH SANDHU Rep #: [id number] : 1955 Provider: LUIS Barnes Age/Sex: 69/F Location: [facility] Status: Signed Intake Vital Signs 04/05/24 09:27 10/31/24 09:28 Height 5 ft Weight: 117 lb BMI 22.8 BP 122/62 H 120/76 Blood Pressure Location Lt brachial Position Sitting Sitting Respiration 16 Pulse 97 67 Pulse Source Monitor Temp 97.7 F L 98.3 F Temp Source Oral Pulse Oximetry (%) 98 96 Oxygen Delivery Method room air room air Intake Visit Reasons: L LEG WOUND/CONCERN FOR INFECTION Accompanied by: Self Allergies amoxicillin Allergy (Verified 10/31/24 09:31) Rash codeine Allergy (Verified 10/31/24 09:31) Unknown ibuprofen Allergy (Verified 10/31/24 09:31) Swelling Medications ?Medication ?Instructions ?Recorded ?Confirmed ?Type benazepril 20 1 ea PO DAILY 10/03/1704/05 History mg-hydrochlorothiazide 12.5 mg tablet (Lotensin HCT) calcium carbonate (Oyster Shell 500 mg PO BIDCM 04/05/24 History Calcium 500) multivitamin (Multiple Vitamins 1 ea PO DAILY 10/03/17 04/05/24 History tablet) doxycycline monohydrate 100 mg 100 mg PO BID 7 days #1 4 caps 10/31/24 10/31/24 Rx capsule Have you fallen in the past year?: No Nurse's Note: Patient has a left leg wound that happen couple weeks ago. Patient states that she was mowing and her leg his a A frame wooden thing and that is what cut her leg. Patient states its hurts sometimes and it has drainage she can tell when she changes the bandaide and that its red and the end of the day it will be swollen. PFSH Social History Smoking Status: Never smoker HPI HPI Details: LISSETH SANDHU, is a 69 F who presents to the office today for leg wound -left leg- couple weeks ago- on rider mower- frame of swing set got to close toit and ran into the wood -red, drainage, swollen, painful -no fever or chills -tried so far otc atb ointment- aquaphor -not diabetic ROS Const Constitutional: Positive for other (ROS negative x6 except what was placed in HPI) Exam Const General: cooperative, healthy appearing, comfortable, no acute distress and wellgroomed Orientation: alert and oriented x3 Skin Other: -left anterior johnson with lidia size wound with clear to yellow drainage- very scant amount- scabbing noted around the edges. Surrounding tissue bright pink and warm -culture taken- then cleassed with normal saline, applied bacitracin oint and bandaid - tolerated fair Coding Level of Care Code Off vis,est,level 3 Diagnoses Cellulitis of left lower extremity L03.116 Laterality: left Site of cellulitis: extremity Site of cellulitis of extremity: lower extremity Assessment and Plan Assessment and Plan (1) Cellulitis: Status: Acute Qualifiers: Laterality: left Site of cellulitis: extremity Site of cellulitis of extremity: lower extremity Qualified Code(s): L03.116 - Cellulitis of left lower limb Plan: -take full course of atb even if feeling better- to prevent GI upset/yeast infection eat a yogurt daily or take an otc probiotic -keep clean and dry Please follow up with your Primary Care Physician for ongoing chronic problems. If symptoms change or worsen, please present to Emergency Room for further evaluation 1. See visit diagnoses, disposition, and orders. 2. Reviewed and updated medication list; Discussed probable diagnosis, test results if available in office today and management options with patient/guardian: agreed to the medical plan above 3. Education provided regarding visit today, see after visit summary. Instruction provided in the use of fluids, vaporizer, acetaminophen, and/or other OTC medication for symptom control. Explained use of antibiotics only for proven or strongly suspected bacterial infections. 4. Prevention and health maintenance with primary care provider. 5. Patient/guardian educated to proceed to ED with worsening of condition, changes, or failure to improve. Medications: New doxycycline monohydrate 100 mg PO BID 14 caps 0RF 7 days Clinical Quality Measures Falls Risk Screening/Assistive Devices Have you fallen in the past year?: No 10/31/24 0947 <Electronically signed by Marisol SMITH> Date _ Marisol SMITH Cosigner Signature: Date (if applicable) CC: ~ [facility] Work Phone: Evaluation note Note Date & Type Note Facility Evaluation note No assessment information availa ble [facility] Work Phone: Evaluation note Note Date & Type Note Facility Evaluation note Diagnosis Onset Date Resolution Cellulitis acute October 31, 2024 9:29am [facility] Work Phone: Reason for referral (narrative) Note Date & Type Note Facility Reason for referral (narrative) No reason for referral information available [facility] Work Phone: Summary Purpose Family History No Family History Records FoundNo Family History Records FoundNo Family History Records FoundNo Family History Records Found Advance Directives No Advanced Directives Records Found Advance Directive Response Recorded Date/ Time Living Will No October 03, 2017 5 :28pm Power of Barrel Cooper Yes October 03, 2017 5:28pm Advance Directive Response Recorded Date/ Time Living Will No October 03, 2017 4 :28pm Power of Barrel Cooper Yes October 03, 2017 4:28pm Advance Directive Response Recorded Date/ Time Living Will No August 14, 2023 11:00am Power of Barrel Cooper Yes August 13 11:00am Chief Complaint and Reason for Visit Chief Complaint SKIN RIGHT- FOOT-pain over 4th and 5th MT. injury PAIN- COPY PCP- [facility] AND [facility]. LABS Chief Complaint SKIN RIGHT- FOOT-pain over 4th and 5th MT. injury PAIN- COPY PCP- [facility] AND [facility]. LABS SCLERODERMA, HYPERTENSION Chief Complaint SKIN RIGHT- FOOT-pain over 4th and 5th MT. injury PAIN- COPY PCP- [facility] AND [facility]. LABS SCLERODERMA, HYPERTENSION EORDER- RIGHT FOOT- fu fracture Chief Complaint SKIN RIGHT- FOOT-pain over 4th and 5th MT. injury PAIN- COPY PCP- [facility] AND [facility]. LABS SCLERODERMA, HYPERTENSION EORDER- RIGHT FOOT- fu fracture EORDER Chief Complaint EORDER X RAY PAIN- COPY PCP Chief Complaint XRAY Chief Complaint Admit Date PAIN- COPY PCP August 17, 2024 7:0 6am Chief Complaint Admit Date PAIN- COPY PCP August 17, 2024 7:0 6am L LEG WOUND/CONCERN FOR INFECTION October 312024 9:29am Reason for Visit Admit Date Cellulitis October 31, 2024 9:29a m Additional Source Comments INFORMATION SOURCE (unrecogn ized section and content) DATE CREATED AUTHOR 11/13/2017 [facility] DATE CREATED AUTHOR AUTHOR'S ORGANIZ ATION 11/13/2017 [facility] DATE CREATED AUTHOR AUTHOR'S ORGANIZ ATION 02/05/2020 [facility] DATE CREATED AUTHOR AUTHOR'S ORGANIZ ATION 11/01/2024 [facility] Goals (unrecognized section and content) Goals may be documented in a n alternate sectionGoals may be documented in an alternate sectionGoals may be documented in an alternate sectionGoals may be documented in an alternate sectionGoals may be documented in an alternate sectionGoals may be documented in an alternate sectionGoals may be documented in an alternate sectionGoals may be documented in an alternate sectionGoals may be documented in an alternate sectionGoals may be documented in an alternate sectionGoals may be documented in an alternate section Care Teams (unrecognized sec tion and content) Team Status: Active Member Role Status Dates Dr. Jojo Ray MD Family Provider Active Dr. Jojo Ray MD Primary Care Provider Active Team Status: Inactive Member Role Status Dates Dr. Jojo Ray MD Primary Care Provider, Attendin g Provider Active Team Status: Inactive Member Role Status Dates Dr. Jojo Ray MD Primary Care Provider Active Deb PARKER PA Attending Provider, Referring Pr ovidmarek Active Team Status: Inactive Member Role Status Dates Dr. Jojo Ray MD Primary Care Provider Active Dr. Sebastián Argueta MD Attending Provider, Referri ng Provider Active Team Status: Active Member Role Status Dates Dr. Jojo Ray MD Primary Care Provider Active Dr. Suzy Lozano MD Attending Provider, Referring Provider Active Team Status: Inactive Member Role Status Dates Dr. Jojo Ray MD Primary Care Provider Active Dr. Suzy Lozano MD Attending Provider, Referring Provider Active Team Status: Active Member Role Status Dates Dr. Jojo Ray MD Primary Care Provider Active Dr. Sandoval Egan MD Attending Provider Active Team Status: Active Member Role Status Dates Dr. Jojo Ray MD Primary Care Provider Active Dr. Sandoval Egan MD Attending Provider Active Dr. Suzy Lozano MD Referring Provider Active Team Status: Inactive Member Role Status Dates Dr. Jojo aRy MD Primary Care Provider Active Dr. Sandoval Egan MD Attending Provider Active Team Status: Inactive Member Role Status Dates Dr. Jojo Ray MD Primary Care Provider Active Start: August 17, 2024 End: August 17, 2024 Dr. Suzy Lozano MD Attending Provider Active Start: August 17, 2024 End: August 17, 2024 Dr. Suzy Lozano MD Referring Provider Active Start: August 17, 2024 End: August 17, 2024 Team Status: Inactive Member Role Status Dates Dr. Jojo Ray MD Primary Care Provider Active Start: October 31, 2024 End: October 31, 2024 Dr. Jojo Ray MD Referring Provider Active Start: October 31, 2024 End: October 31, 2024 LUIS Rain Attending Provider Active Start: October 31, 2024 End: October 31, 2024 FOR RECORDS PERTAINING TO PATIENTS WHO ARE OR HAVE BEEN ENROLLED IN A CHEMICAL DEPENDENCY/SUBSTANCEABUSE PROGRAM, SOME INFORMATION MAY BE OMITTED. This clinical summary was aggregated from multiple sources. Caution should be exercised in using it in the provision of clinical care. This summary normalizes information from multiple sources, and as a consequence, information in this document may materially change the coding, format and clinical context of patient data. In addition, data may be omitted in some cases. CLINICAL DECISIONS SHOULD BE BASED ON THE PRIMARY CLINICAL RECORDS. [employer] [facility]. provides no warranty or guarantee of the accuracy or completeness of information in this document.
== END | disposition home or self-care (01) ==
LOC: LABSPEC 11:14
PROVIDERS: PCP Family Medicine; Referring Provider Nurse Practitioner Family; Visit Provider Nurse Practitioner Family
DX: L03.116 Cellulitis of left lower limb (principal)
CPT/HCPCS: 87070; 87077; 87186; 87205

== ENCOUNTER 2024-12-22 15:15 | Outpatient (RCR) | payer MEDICARE, SELFPAY ==
[2024-12-08 08:11] VITALS: BP 146/81; PULSE 55; RESP 16; TEMP 36.2; BMI 22.8
--- NOTE | 2024-12-09 13:34 | WC ---
PHOTO 12/08/24 LEFT MONTALVO
--- NOTE | 2024-12-10 11:27 | HP.PCM_ITS ---
History of Present Illness Date of Service: 12/08/24 Chief Complaint: Traumatic left pretibial wound History of Wound: This is a 69-year-old female [facility] Home Medications ?Medication ?Instructions ?Recorded ?Last Taken ?Type benazepril 20 1 ea PO DAILY 10/03/17 Unkno wn History mg-hydrochlorothiazide 12.5 mg tablet (Lotensin HCT) calcium carbonate (Oyster Shell 500 mg PO BIDCM Unknown History Calcium 500) multivitamin (Multiple Vitamins 1 ea PO DAILY 10/03/17 Unknown History tablet) diltiazem HCl 240 mg capsule,24 240 mg PO DAILY Unknown History hr,extended release Allergy/AdvReac Type Severity Reaction Status Date / Time amoxicillin Allergy Rash Verified 12/08/24 08:24 codeine Allergy Unknown Verified 12/08/24 08:24 ibuprofen Allergy Swelling Verified 12/08/24 08:24 Social History Smoking Status: Never smoker Vital Signs Vital Signs Vital Signs: Weight Weight: 117 lb Body Mass Index (BMI) 22.8 Debridement Note Debridement Note Post-Debridement Measurements and Additional Note: Post-Debridement Measurements/Treatment - Nurse 1 - General Ulcer Assessment Start: 12/08/24 08:10 Freq: Status: Active Protocol: ARTURO Activity Type Activity Date Activity User E-sign Co-sign Detail Recorded Client Recorded Date Recorded By Document 12/08/24 08:11 [facility] [id number] 12/08/24 08:22 [facility] 12/08/24 08:11 - Today's Visit Information Type of service Initial Visit Arrival Mode Ambulatory Transfer Assistance None Patient Identification Verified (Name & Yes ) Patient Requires Transmission-Based No Precautions Height and Weight Height 5 ft Weight 117 lb Weight in Pounds 117.0 lbs Weight Measurement Method Stated by Patient Body Mass Index (BMI) 22.8 BMI Classification Normal Vital Signs Temperature (97.8 F-99.1 F) 97.1 F L Temperature Source Temporal Pulse Rate (60-100) 55 L Pulse Location Monitor Respiratory Rate (12-18) 16 Respiratory rate source Observation Oxygen Delivery Method Room Air Blood Pressure (90/60-120/80) 146/81 H Blood Pressure Mean 102 Source Monitor Position Sitting Blood Pressure Location Left Arm History Since Last Visit- (Skip if this is Patient's initial visit) Left Footwear Regular Shoe Right Footwear Regular Shoe Pain Scale: 0-10 Numeric Is Patient Pain Free? Yes Lower Extremity Assessment/ Foot Assessment/ Toe Nail Assessment Right -Posterior Tibial Doppler Monophasic -Dorsalis Pedis Doppler Monophasic -Extremity Color Pale -Hair Growth on Legs No -Hair Growth on Toes No -Thick No -Discolored No -Deformed No -Improper Length & Hygeine No Left -Posterior Tibial Doppler Monophasic -Dorsalis Pedis Palpable Yes -Dorsalis Pedis Doppler Monophasic -Extremity Color Pale -Hair Growth on Legs No -Hair Growth on Toes No -Thick No -Discolored No -Deformed No -Improper Length & Hygeine No Communication Assessment Preferred language Vincentian Able to Read Yes Able to Write Yes Communication Tools None Right Hearing Abillity Normal Left Hearing Abillity Normal Visual Assistive Devices Glasses Teaching Assessment Preferences Verbal,Written Barriers to Learning None Readiness To Learn Excellent Willingness to Engage in Self Management High Activies Readiness to Engage in Self Management High Activities Anxiety Level Calm Cooperation Cooperative Perception Coherent Interest in Health Problem Asks Questions Education Importance Acknowledges Need Does Patient Smoke tobacco or other No substances Smoking Status Never smoker Is Patient Diabetic No 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 Cultural/Mandaeism Needs that may affect No Treatment Plan Teaching: Wound Center *Welcome to the Wound Center -Person Taught Patient -Teaching Method Discussion -Response to teaching Verbalize Understanding - Nurse 1 - General Ulcer Measurement Start: 12/08/24 08:10 Freq: Status: Active Protocol: Activity Type Activity Date Activity User E-sign Co-sign Detail Recorded Client Recorded Date Recorded By Document 12/08/24 08:11 [facility] [id number] 12/08/24 08:22 [facility] 12/08/24 08:11 Wound Center Nurse 1 #1- L MONTALVO -Combined with other wound No -Current Size (cm) - Length 0.5 -Current Size (cm) - Width 0.5 -Current Size (cm) - Depth 0.1 -Total Square Cm 0.25 -Date of Last Picture (Recall this 12/08/24 field) -Photo Taken Yes -Tunneling No -Undermining/Tunneling No -Circular Undermining No -Exudate Amt Medium -Exudate Type Serosanguineous -Wound Margin Flat & Intact -Granulation Amt None Present (0 %) -Slough/Fibrin Yes -Necrosis Amt Large (67-100%) -Necrotic Tissue Type Adherent Slough -Texture (Kari-wound Skin Appearance) Assessed, Scarring -Moisture (Kari-wound Skin Appearance) Assessed -Color (Kari-wound Skin Appearance) Assessed -Temperature (Kari-wound Skin No Abnormality Appearance) (Pt Warm) -Tenderness on Palpation (Kari-wound No Skin Appearance) -Ulcer Cleansing Rinsed/ Irrigated with Saline -Foul Odor after Cleansing No -Anesthetic Used 5% Lidocaine Gel Right Calf (cm) 32.5 Right Ankle (cm) 18.6 Left Calf (cm) 32.2 Left Ankle (cm) 18.8 WC - Nurse 2 - General Ulcer CM Notes Start: 12/08/24 08:10 Freq: Status: Active Protocol: Activity Type Activity Date Activity User E-sign Co-sign Detail Recorded Client Recorded Date Recorded By Document 12/08/24 08:48 DS [id number] 12/08/24 08:55 DS 12/08/24 08:48 Wound Center Nurse 2 #1- L MONTALVO -Time 08:48 -Correct Patient Yes -Correct Side, Site, Position Yes -Correct Procedure Yes -Procedure Performed Yes -Type of Procedure Debridement -Clinical Debridement Subcutaneous -Tissue Removed Subcutaneous -Post Debridement (cm) - Length 0.8 -Post Debridement (cm) - Width 1.0 -Post Debridement (cm) - Depth 0.3 -Total Square (Post) (cm) 0.80 -Area of Debridement (cm) - Length 0.8 -Area of Debridement (cm) - Width 1.0 -Total Square (Area) (cm) 0.80 -Tunneling No -Undermining/Tunneling No -Circular Undermining No -Wound/Ulcer Outcome Not Healed -Ulcer Cleansing gauze -Foul Odor after Cleansing No -Bioengineered Tissue No -Bleeding Controlled with Pressure -Treatment Response Procedure Tolerated Well -Debridement - Subq, 1st 20sq cm Yes Pain Scale: 0-10 Numeric Is Patient Pain Free? Yes RONNELL - Nurse 3 - General Ulcer D/C NN Start: 12/08/24 08:10 Freq: Status: Active Protocol: Activity Type Activity Date Activity User E-sign Co-sign Detail Recorded Client Recorded Date Recorded By Document 12/08/24 11:32 [facility] [id number] 12/08/24 11:33 [facility] 12/08/24 11:32 Wound Care Center Nurse 3 #1- L MONTALVO -Ulcer Cleansing Rinsed/ Irrigated with Saline -Foul Odor after Cleansing No -Primary Dressing Applied C Hydrogel -Other Dressing rx for santyl -Primary Dressing Covered/Secured with Dry Gauze & Roll Gauze, Secured with Tape -Hydrogel 1 -Wound Comment(s) hydrogel in clinic today Treatment Response Procedure Tolerated Well Pain Scale: 0-10 Numeric Is Patient Pain Free? Yes WC - Visit Discharge Discharge Condition Stable Ambulatory Status Ambulatory Transportation Private Auto Lab / Micro Data Micro: Microbiology 12/08/24 08:56 Wound - Leg, Left Gram Stain - Final 12/08/24 08:56 Wound - Leg, Left Wound Culture - Preliminary Proteus mirabilis Gram positive organism
--- NOTE | 2024-12-10 11:27 | PCM.WC.HP ---
History of Present Illness Date of Service: 12/08/24 Chief Complaint: Traumatic left pretibial wound History of Wound: This is a 69-year-old female who sustained a traumatic injury to her left pretibial surface on October 31, 2024. The injury occurred while she was mowing her lawn on a riding mower, impacting her left lower leg against a swing set. Patient was seen in an urgent care center, where cultures were obtained and the patient was placed on doxycycline 100 mg p.o. twice daily for a total of 7 days. The cultures were subsequently positive for a coagulase-negative Staphylococcus species, sensitive to doxycycline. On November 20, 2024, the patient was seen by her primary care physician, who prescribed cephalexin orally. The patient has completed her most recent course of oral antibiotics. The patient has been using Aquaphor topically and a Band-Aid. The patient is retired. She admits to late-day swelling in her lower extremities. The patient sleeps on a flat mattress at night. She is not a smoker. She is not diabetic. 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 Traumatic open wound of left lower leg Hypertension Home Medications ?Medication ?Instructions ?Recorded ?Last Taken ?Type benazepril 20 1 ea PO DAILY 10/03/17 Unknown History mg-hydrochlorothiazide 12.5 mg tablet (Lotensin HCT) calcium carbonate (Oyster Shell 500 mg PO BIDCM 10/03/17 Unknown History Calcium 500) multivitamin (Multiple Vitamins 1 ea PO DAILY 10/03/17 Unknown History tablet) diltiazem HCl 240 mg capsule,24 240 mg PO DAILY 12/08/24 Unknown History hr,extended release Allergy/AdvReac Type Severity Reaction Status Date / Time amoxicillin Allergy Rash Verified 12/08/24 08:24 codeine Allergy Unknown Verified 12/08/24 08:24 ibuprofen Allergy Swelling Verified 12/08/24 08:24 Surgical History History of section Social History Smoking Status: Never smoker Vital Signs Vital Signs Vital Signs: Weight Weight: 117 lb Body Mass Index (BMI) 22.8 Physical Exam Const alert, oriented x3, no apparent distress, average body habitus and well nourished Constitutional Narrative: Patient's BMI is 22.8. General Appearance: cooperative, comfortable, well kempt and well developed Orientation / Consciousness: awake, oriented to person, oriented to place and oriented to time HEENT normocephalic and head/scalp atraumatic Head and Scalp: normal to inspection, normocephalic and atraumatic Face and Sinus: normal facial exam Nose: external nose normal External Ear: external ears normal Eyes EOMs intact bilaterally General Eye: normal appearance of both eyes Resp normal respiratory effort, normal air movement, no retractions and no use of accessory muscles Effort and Inspection: able to speak in complete sentences Extremity no calf tenderness Skin Wound Narrative: An open wound is noted on the patient's left pretibial surface. A moderate amount of periwound erythema is noted. The wound is full-thickness in nature, extending through all layers of the dermis and into the subcutaneous tissues. The patient of the wound demonstrate a large amount of slough and nonviable, necrotic tissue. There is no drainage or odor. Dimensions are documented elsewhere. Neuro oriented x3, CN's II-XII intact bilaterally, moves all extremities, no focal motor deficits and no sensory deficits noted Sensorium / Orientation: awake, alert, oriented to person, oriented to place and oriented to time Speech: speech normal Psych Appearance: grossly normal and appropriate Attitude: calm Activity / Motor Behavior: appropriate eye contact Speech: normal speech Mood & Affect: euthymic mood Thought Process: normal thought process Thought Content: normal thought content Attention / Concentration: attention grossly intact Debridement Note Debridement Note Wound debrided: Left pretibial traumatic wound Laterality: Left Type of Debridement: Excisional debridement Anesthesia Used: 5% Lidocaine Gel and Cetacaine Depth: in the subcutaneous layer Percentage of wound debrided: 100 Instrument Used: 3mm curette Tissue Removed: Slough and necrotic, nonviable tissue. Severity: Fat Layer Exposed Amount of bleeding with debridement: Mild Bleeding Controlled with: Compression and gauze Patient tolerated procedure: Patient tolerated procedure well Debridement Free Text: Because of the appearance of the wound, and associated kari-wound erythema, a swab culture was obtained for aerobic and anaerobic bacterial growth. Post-Debridement Measurements and Additional Note: Post-Debridement Measurements/Treatment WC - Nurse 1 - General Ulcer Assessment Start: 12/08/24 08:10 Freq: Status: Active Protocol: WC.LOWEXT Activity Type Activity Date Activity User E-sign Co-sign Detail Recorded Client Recorded Date Recorded By Document 12/08/24 08:11 [facility] [id number] 12/08/24 08:22 [facility] 12/08/24 08:11 WC - Today's Visit Information Type of service Initial Visit Arrival Mode Ambulatory Transfer Assistance None Patient Identification Verified (Name & Yes ) Patient Requires Transmission-Based No Precautions Height and Weight Height 5 ft Weight 117 lb Weight in Pounds 117.0 lbs Weight Measurement Method Stated by Patient Body Mass Index (BMI) 22.8 BMI Classification Normal Vital Signs Temperature (97.8 F-99.1 F) 97.1 F L Temperature Source Temporal Pulse Rate (60-100) 55 L Pulse Location Monitor Respiratory Rate (12-18) 16 Respiratory rate source Observation Oxygen Delivery Method Room Air Blood Pressure (90/60-120/80) 146/81 H Blood Pressure Mean 102 Source Monitor Position Sitting Blood Pressure Location Left Arm History Since Last Visit- (Skip if this is Patient's initial visit) Left Footwear Regular Shoe Right Footwear Regular Shoe Pain Scale: 0-10 Numeric Is Patient Pain Free? Yes Lower Extremity Assessment/ Foot Assessment/ Toe Nail Assessment Right -Posterior Tibial Doppler Monophasic -Dorsalis Pedis Doppler Monophasic -Extremity Color Pale -Hair Growth on Legs No -Hair Growth on Toes No -Thick No -Discolored No -Deformed No -Improper Length & Hygeine No Left -Posterior Tibial Doppler Monophasic -Dorsalis Pedis Palpable Yes -Dorsalis Pedis Doppler Monophasic -Extremity Color Pale -Hair Growth on Legs No -Hair Growth on Toes No -Thick No -Discolored No -Deformed No -Improper Length & Hygeine No Communication Assessment Preferred language Taiwanese Able to Read Yes Able to Write Yes Communication Tools None Right Hearing Abillity Normal Left Hearing Abillity Normal Visual Assistive Devices Glasses Teaching Assessment Preferences Verbal,Written Barriers to Learning None Readiness To Learn Excellent Willingness to Engage in Self Management High Activies Readiness to Engage in Self Management High Activities Anxiety Level Calm Cooperation Cooperative Perception Coherent Interest in Health Problem Asks Questions Education Importance Acknowledges Need Does Patient Smoke tobacco or other No substances Smoking Status Never smoker Is Patient Diabetic No 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 Cultural/Voodoo Needs that may affect No Treatment Plan Teaching: Wound Center *Welcome to the Wound Center -Person Taught Patient -Teaching Method Discussion -Response to teaching Verbalize Understanding RONNELL - Nurse 1 - General Ulcer Measurement Start: 12/08/24 08:10 Freq: Status: Active Protocol: Activity Type Activity Date Activity User E-sign Co-sign Detail Recorded Client Recorded Date Recorded By Document 12/08/24 08:11 [facility] [id number] 12/08/24 08:22 [facility] 12/08/24 08:11 Wound Center Nurse 1 #1- L MONTALVO -Combined with other wound No -Current Size (cm) - Length 0.5 -Current Size (cm) - Width 0.5 -Current Size (cm) - Depth 0.1 -Total Square Cm 0.25 -Date of Last Picture (Recall this 12/08/24 field) -Photo Taken Yes -Tunneling No -Undermining/Tunneling No -Circular Undermining No -Exudate Amt Medium -Exudate Type Serosanguineous -Wound Margin Flat & Intact -Granulation Amt None Present (0 %) -Slough/Fibrin Yes -Necrosis Amt Large (67-100%) -Necrotic Tissue Type Adherent Slough -Texture (Kari-wound Skin Appearance) Assessed, Scarring -Moisture (Kari-wound Skin Appearance) Assessed -Color (Kari-wound Skin Appearance) Assessed -Temperature (Kari-wound Skin No Abnormality Appearance) (Pt Warm) -Tenderness on Palpation (Kari-wound No Skin Appearance) -Ulcer Cleansing Rinsed/ Irrigated with Saline -Foul Odor after Cleansing No -Anesthetic Used 5% Lidocaine Gel Right Calf (cm) 32.5 Right Ankle (cm) 18.6 Left Calf (cm) 32.2 Left Ankle (cm) 18.8 RONNELL - Nurse 2 - General Ulcer CM Notes Start: 12/08/24 08:10 Freq: Status: Active Protocol: Activity Type Activity Date Activity User E-sign Co-sign Detail Recorded Client Recorded Date Recorded By Document 12/08/24 08:48 DS [id number] 12/08/24 08:55 DS 12/08/24 08:48 Wound Center Nurse 2 #1- L MONTALVO -Time 08:48 -Correct Patient Yes -Correct Side, Site, Position Yes -Correct Procedure Yes -Procedure Performed Yes -Type of Procedure Debridement -Clinical Debridement Subcutaneous -Tissue Removed Subcutaneous -Post Debridement (cm) - Length 0.8 -Post Debridement (cm) - Width 1.0 -Post Debridement (cm) - Depth 0.3 -Total Square (Post) (cm) 0.80 -Area of Debridement (cm) - Length 0.8 -Area of Debridement (cm) - Width 1.0 -Total Square (Area) (cm) 0.80 -Tunneling No -Undermining/Tunneling No -Circular Undermining No -Wound/Ulcer Outcome Not Healed -Ulcer Cleansing gauze -Foul Odor after Cleansing No -Bioengineered Tissue No -Bleeding Controlled with Pressure -Treatment Response Procedure Tolerated Well -Debridement - Subq, 1st 20sq cm Yes Pain Scale: 0-10 Numeric Is Patient Pain Free? Yes - Nurse 3 - General Ulcer D/C NN Start: 12/08/24 08:10 Freq: Status: Active Protocol: Activity Type Activity Date Activity User E-sign Co-sign Detail Recorded Client Recorded Date Recorded By Document 12/08/24 11:32 [facility] [id number] 12/08/24 11:33 [facility] 12/08/24 11:32 Wound Care Center Nurse 3 #1- L MONTALVO -Ulcer Cleansing Rinsed/ Irrigated with Saline -Foul Odor after Cleansing No -Primary Dressing Applied C Hydrogel -Other Dressing rx for santyl -Primary Dressing Covered/Secured with Dry Gauze & Roll Gauze, Secured with Tape -Hydrogel 1 -Wound Comment(s) hydrogel in clinic today Treatment Response Procedure Tolerated Well Pain Scale: 0-10 Numeric Is Patient Pain Free? 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: CODE(S): L97.902 - Non-pressure chronic ulcer of unspecified part of unspecified lower leg with fat layer exposed QUALIFIERS: Laterality: left Qualified Code(s): L97.922 - Non-pressure chronic ulcer of unspecified part of left lower leg with fat layer exposed (2) Traumatic open wound of left lower leg: CODE(S): S81.802A - Unspecified open wound, left lower leg, initial encounter QUALIFIERS: Encounter type: initial encounter Qualified Code(s): S81.802A - Unspecified open wound, left lower leg, initial encounter (3) History of section: CODE(S): Z98.891 - History of uterine scar from previous surgery (4) Hypertension: CODE(S): I10 - Essential (primary) hypertension (5) Scleroderma: CODE(S): M34.9 - Systemic sclerosis, unspecified PLAN: Plan This is a 69-year-old female with a traumatic wound on the left pretibial surface. The injury occurred approximately 6 weeks prior to the patient's presentation. It has failed to heal appropriately, and the patient has been treated by an urgent care center and her primary care physician with several courses of oral antibiotics. A swab culture has been obtained for aerobic and anaerobic bacterial growth. Culture results will be awaited. The patient has been instructed to optimize her nutritional intake. She is not diabetic, and she does not smoke. We are implement the use of collagenase Santyl topically, which will be applied topically on a daily basis. The patient has been instructed in the appropriate means of application. In addition, the patient has been provided a coupon to mitigate the cost of the collagenase Santyl. The patient has been encouraged to elevate her lower extremities is much as possible to prevent lower extremity swelling. She has been encouraged to wear her graduated compression stockings on a daily basis. Patient is to return in 1 week for reevaluation. Total time: 48 minutes
[2024-12-15 08:33] VITALS: BP 146/63; PULSE 73; RESP 18; TEMP 36.3; BMI 22.8
--- NOTE | 2024-12-16 10:10 | WC ---
PHOTO-LEFT MONTALVO 12-15-24
--- NOTE | 2024-12-17 14:55 | PCM.WC.HP ---
History of Present Illness Date of Service: 12/15/24 Chief Complaint: Traumatic left pretibial wound History of Wound: This is a 69-year-old female who sustained a traumatic injury to her left pretibial surface on October 31, 2024. The injury occurred while she was mowing her lawn on a riding mower, impacting her left lower leg against a swing set. The patient was seen in an urgent care center, where cultures were obtained and the patient was placed on doxycycline 100 mg p.o. twice daily for a total of 7 days. The cultures were subsequently positive for a coagulase-negative Staphylococcus species, sensitive to doxycycline. On November 20, 2024, the patient was seen by her primary care physician, who prescribed cephalexin orally. The patient had been using Aquaphor topically and a Band-Aid. The patient is retired. She admits to late-day swelling in her lower extremities. The patient sleeps on a flat mattress at night. She is not a smoker. She is not diabetic. 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 Traumatic open wound of left lower leg Hypertension Home Medications ?Medication ?Instructions ?Recorded ?Last Taken ?Type benazepril 20 1 ea PO DAILY 10/03/17 Unknown History mg-hydrochlorothiazide 12.5 mg tablet (Lotensin HCT) calcium carbonate (Oyster Shell 500 mg PO BIDCM 10/03/17 Unknown History Calcium 500) multivitamin (Multiple Vitamins 1 ea PO DAILY 10/03/17 Unknown History tablet) diltiazem HCl 240 mg capsule,24 240 mg PO DAILY 12/08/24 Unknown History hr,extended release levofloxacin 500 mg tablet 500 mg PO DAILY #10 tabs 12/14/24 Unknown Rx Allergy/AdvReac Type Severity Reaction Status Date / Time amoxicillin Allergy Rash Verified 12/08/24 08:24 codeine Allergy Unknown Verified 12/08/24 08:24 ibuprofen Allergy Swelling Verified 12/08/24 08:24 Surgical History History of section Social History Smoking Status: Never smoker Vital Signs Vital Signs Vital Signs: Weight Weight: 117 lb Body Mass Index (BMI) 22.8 Physical Exam Const alert, oriented x3, no apparent distress, average body habitus and well nourished Constitutional Narrative: The patient's BMI is 22.8. General Appearance: cooperative, comfortable, well kempt and well developed Orientation / Consciousness: awake, oriented to person, oriented to place and oriented to time Exam Limitations: no limitations HEENT normocephalic and head/scalp atraumatic Head and Scalp: normal to inspection, normocephalic and atraumatic Face and Sinus: normal facial exam Nose: external nose normal External Ear: external ears normal Eyes EOMs intact bilaterally General Eye: normal appearance of both eyes Resp normal respiratory effort, normal air movement, no retractions and no use of accessory muscles Effort and Inspection: able to speak in complete sentences Extremity no calf tenderness Skin Wound Narrative: An open wound is noted on the patient's left pretibial surface. A moderate amount of periwound erythema is noted. The wound is full-thickness in nature, extending through all layers of the dermis and into the subcutaneous tissues. Dimensions are documented elsewhere. The wound demonstrates a moderate amount of slough and nonviable, necrotic tissue. There is no drainage or odor. Wound margins are not well beveled. Neuro oriented x3, CN's II-XII intact bilaterally, moves all extremities, no focal motor deficits and no sensory deficits noted Sensorium / Orientation: awake, alert, oriented to person, oriented to place and oriented to time Speech: speech normal Psych Appearance: grossly normal and appropriate Attitude: calm Activity / Motor Behavior: appropriate eye contact Speech: normal speech Mood & Affect: euthymic mood Thought Process: normal thought process Thought Content: normal thought content Attention / Concentration: attention grossly intact Debridement Note Debridement Note Wound debrided: Left pretibial traumatic wound Laterality: Left Type of Debridement: Excisional debridement Anesthesia Used: 5% Lidocaine Gel and Cetacaine Depth: in the subcutaneous layer Percentage of wound debrided: 100 Instrument Used: 3mm curette Tissue Removed: Slough and necrotic, nonviable tissue. Severity: Fat Layer Exposed Amount of bleeding with debridement: Mild Bleeding Controlled with: Compression and gauze Patient tolerated procedure: Patient tolerated procedure well Post-Debridement Measurements and Additional Note: Post-Debridement Measurements/Treatment WC - Nurse 1 - General Ulcer Assessment Start: 12/08/24 08:10 Freq: Status: Active Protocol: WC.LOWEXT Activity Type Activity Date Activity User E-sign Co-sign Detail Recorded Client Recorded Date Recorded By Document 12/08/24 08:11 [facility] [id number] 12/08/24 08:22 [facility] Document 12/15/24 08:33 [id number] 12/15/24 08:45 KW 12/08/24 12/15/24 08:11 08:33 WC - Today's Visit Information Type of service Initial Visit Follow-up Visit (Physician/[facility] ) Arrival Mode Ambulatory Ambulatory Transfer Assistance None Patient Identification Verified (Name & Yes Yes ) Patient Requires Transmission-Based No Precautions Height and Weight Height 5 ft Weight 117 lb Weight in Pounds 117.0 lbs Weight Measurement Method Stated by Patient Body Mass Index (BMI) 22.8 22.8 BMI Classification Normal Normal Vital Signs Temperature (97.8 F-99.1 F) 97.1 F L 97.4 F L Temperature Source Temporal Temporal Pulse Rate (60-100) 55 L 73 Pulse Location Monitor Monitor Respiratory Rate (12-18) 16 18 Respiratory rate source Observation Observation Oxygen Delivery Method Room Air Room Air Blood Pressure (90/60-120/80) 146/81 H 146/63 H Blood Pressure Mean 102 90 Source Monitor Monitor Position Sitting Semi-Fowlers Blood Pressure Location Left Arm Right Arm History Since Last Visit- (Skip if this is Patient's initial visit) Have you changed medications since your No last visit? Any new allergies or adverse reactions No Had a fall/change in ADL's that may No increase risk of falls Signs or symptoms of abuse and/or No neglect since last visit Have you been in the hospital since your No last visit? Has dressing in place as prescribed Yes Has compression in place as prescribed Yes Has offloadiing in place as prescribed N/A Experienced any changes in pain level or No management Left Footwear Regular Shoe Regular Shoe Right Footwear Regular Shoe Regular Shoe Pain Scale: 0-10 Numeric Is Patient Pain Free? Yes Yes Lower Extremity Assessment/ Foot Assessment/ Toe Nail Assessment Right -Posterior Tibial Doppler Monophasic -Dorsalis Pedis Doppler Monophasic -Extremity Color Pale -Hair Growth on Legs No -Hair Growth on Toes No -Thick No -Discolored No -Deformed No -Improper Length & Hygeine No Left -Posterior Tibial Doppler Monophasic -Dorsalis Pedis Palpable Yes -Dorsalis Pedis Doppler Monophasic -Extremity Color Pale -Hair Growth on Legs No -Hair Growth on Toes No -Thick No -Discolored No -Deformed No -Improper Length & Hygeine No Communication Assessment Preferred language Palau[place] Able to Read Yes Able to Write Yes Communication Tools None Right Hearing Abillity Normal Left Hearing Abillity Normal Visual Assistive Devices Glasses Teaching Assessment Preferences Verbal,Written Barriers to Learning None Readiness To Learn Excellent Willingness to Engage in Self Management High Activies Readiness to Engage in Self Management High Activities Anxiety Level Calm Cooperation Cooperative Perception Coherent Interest in Health Problem Asks Questions Education Importance Acknowledges Need Does Patient Smoke tobacco or other No substances Smoking Status Never smoker Is Patient Diabetic No 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 Cultural/Gnosticist Needs that may affect No Treatment Plan Teaching: Wound Center *Welcome to the Wound Center -Person Taught Patient -Teaching Method Discussion -Response to teaching Verbalize Understanding WC - Nurse 1 - General Ulcer Measurement Start: 12/08/24 08:10 Freq: Status: Active Protocol: Activity Type Activity Date Activity User E-sign Co-sign Detail Recorded Client Recorded Date Recorded By Document 12/08/24 08:11 [facility] [id number] 12/08/24 08:22 [facility] Document 12/15/24 08:33 [id number] 12/15/24 08:45 KW 12/08/24 12/15/24 08:11 08:33 Wound Center Nurse 1 #1- L MONTALVO -Combined with other wound No -Current Size (cm) - Length 0.5 0.6 -Current Size (cm) - Width 0.5 0.4 -Current Size (cm) - Depth 0.1 0.2 -Total Square Cm 0.25 0.24 -Date of Last Picture (Recall this 12/08/24 12/15/24 field) -Photo Taken Yes -Tunneling No -Undermining/Tunneling No -Circular Undermining No -Exudate Amt Medium Medium -Exudate Type Serosanguineous Serosanguineous -Wound Margin Flat & Intact Distinct, Outline Attached -Granulation Amt None Present (0 Small (1-33%) %) -Granulation Quality Overton -Slough/Fibrin Yes -Necrosis Amt Large (67-100%) Large (67-100%) -Necrotic Tissue Type Adherent Slough Adherent Slough -Texture (Kari-wound Skin Appearance) Assessed, Assessed Scarring -Moisture (Kari-wound Skin Appearance) Assessed Assessed, Maceration -Color (Kari-wound Skin Appearance) Assessed Assessed -Temperature (Kari-wound Skin No Abnormality No Abnormality Appearance) (Pt Warm) (Pt Warm) -Tenderness on Palpation (Kari-wound No No Skin Appearance) -Ulcer Cleansing Rinsed/ Soap and Water Irrigated with Saline -Foul Odor after Cleansing No No -Anesthetic Used 5% Lidocaine 5% Lidocaine Gel Gel Right Calf (cm) 32.5 32.5 Right Ankle (cm) 18.6 18.5 Left Calf (cm) 32.2 31.8 Left Ankle (cm) 18.8 18.5 WC - Nurse 2 - General Ulcer CM Notes Start: 12/08/24 08:10 Freq: Status: Active Protocol: Activity Type Activity Date Activity User E-sign Co-sign Detail Recorded Client Recorded Date Recorded By Document 12/08/24 08:48 DS [id number] 12/08/24 08:55 DS Document 12/15/24 09:22 DS [id number] 12/15/24 09:26 DS 12/08/24 12/15/24 08:48 09:22 Wound Center Nurse 2 #1- L MONTALVO -Time 08:48 09:22 -Correct Patient Yes Yes -Correct Side, Site, Position Yes Yes -Correct Procedure Yes Yes -Procedure Performed Yes Yes -Type of Procedure Debridement Debridement -Clinical Debridement Subcutaneous Subcutaneous -Tissue Removed Subcutaneous Subcutaneous -Post Debridement (cm) - Length 0.8 0.6 -Post Debridement (cm) - Width 1.0 0.6 -Post Debridement (cm) - Depth 0.3 0.2 -Total Square (Post) (cm) 0.80 0.36 -Area of Debridement (cm) - Length 0.8 0.6 -Area of Debridement (cm) - Width 1.0 0.6 -Total Square (Area) (cm) 0.80 0.36 -Tunneling No No -Undermining/Tunneling No No -Circular Undermining No No -Wound/Ulcer Outcome Not Healed Not Healed -Ulcer Cleansing gauze -Foul Odor after Cleansing No No -Bioengineered Tissue No No -Bleeding Controlled with Pressure Pressure -Treatment Response Procedure Procedure Tolerated Well Tolerated Well -Debridement - Subq, 1st 20sq cm Yes Yes Pain Scale: 0-10 Numeric Is Patient Pain Free? Yes Yes - Nurse 3 - General Ulcer D/C NN Start: 12/08/24 08:10 Freq: Status: Active Protocol: Activity Type Activity Date Activity User E-sign Co-sign Detail Recorded Client Recorded Date Recorded By Document 12/08/24 11:32 [facility] [id number] 12/08/24 11:33 [facility] Document 12/15/24 09:36 [facility] [id number] 12/15/24 09:37 [facility] 12/08/24 12/15/24 11:32 09:36 Wound Care Center Nurse 3 #1- L MONTALVO -Ulcer Cleansing Rinsed/ Rinsed/ Irrigated with Irrigated with Saline Saline -Foul Odor after Cleansing No No -Primary Dressing Applied C Hydrogel -Other Dressing rx for santyl hydrogel -Primary Dressing Covered/Secured with Dry Gauze & Dry Gauze & Roll Gauze, Roll Gauze, Secured with Secured with Tape Tape -Hydrogel 1 -Wound Comment(s) hydrogel in clinic today Treatment Response Procedure Procedure Tolerated Well Tolerated Well Pain Scale: 0-10 Numeric Is Patient Pain Free? 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: CODE(S): L97.902 - Non-pressure chronic ulcer of unspecified part of unspecified lower leg with fat layer exposed QUALIFIERS: Laterality: left Qualified Code(s): L97.922 - Non-pressure chronic ulcer of unspecified part of left lower leg with fat layer exposed (2) Traumatic open wound of left lower leg: CODE(S): S81.802A - Unspecified open wound, left lower leg, initial encounter QUALIFIERS: Encounter type: subsequent encounter Qualified Code(s): S81.802D - Unspecified open wound, left lower leg, subsequent encounter (3) History of section: CODE(S): Z98.891 - History of uterine scar from previous surgery (4) Hypertension: CODE(S): I10 - Essential (primary) hypertension (5) Scleroderma: CODE(S): M34.9 - Systemic sclerosis, unspecified PLAN: Plan This is a 69-year-old female with a traumatic wound on the left pretibial surface. The injury occurred approximately 6 weeks prior to the patient's presentation. It has failed to heal appropriately, and the patient has been treated by an urgent care center and her primary care physician with several courses of oral antibiotics. A swab culture at the patient's prior visit 1 week ago, on December 08, 2024. Culture results are positive for Proteus mirabilis and Corynebacterium amicolatum. In accordance with the sensitivity results, the patient is to be placed on Levaquin 500 mg p.o. daily for 10 days. The patient has been instructed to optimize her nutritional intake. She is not diabetic, and she does not smoke. We are continue the use of collagenase Santyl topically, which will be applied topically on a daily basis. The patient has been instructed in the appropriate means of application. The patient has been encouraged to elevate her lower extremities is much as possible to prevent lower extremity swelling. She has been encouraged to wear her graduated compression stockings on a daily basis. The patient is to return in 1 week for reevaluation. Total time: 24 minutes
[2024-12-22 15:24] VITALS: BP 126/65; PULSE 65; RESP 16; TEMP 37; BMI 22.8
--- NOTE | 2024-12-23 13:25 | WC ---
PHOTO-LEFT MONTALVO 12/22/24
--- NOTE | 2024-12-23 20:55 | PCM.WC.HP ---
History of Present Illness Date of Service: 12/22/24 Chief Complaint: Traumatic left pretibial wound History of Wound: This is a 69-year-old female who sustained a traumatic injury to her left pretibial surface on October 31, 2024. The injury occurred while she was mowing her lawn on a riding mower, impacting her left lower leg against a swing set. The patient was seen in an urgent care center, where cultures were obtained and the patient was placed on doxycycline 100 mg p.o. twice daily for a total of 7 days. The cultures were subsequently positive for a coagulase-negative Staphylococcus species, sensitive to doxycycline. On November 20, 2024, the patient was seen by her primary care physician, who prescribed cephalexin orally. The patient had been using Aquaphor topically and a Band-Aid. The patient is retired. She admits to late-day swelling in her lower extremities. The patient sleeps on a flat mattress at night. She is not a smoker. She is not diabetic. 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 Traumatic open wound of left lower leg Hypertension Home Medications ?Medication ?Instructions ?Recorded ?Last Taken ?Type benazepril 20 1 ea PO DAILY 10/03/17 Unknown History mg-hydrochlorothiazide 12.5 mg tablet (Lotensin HCT) calcium carbonate (Oyster Shell 500 mg PO BIDCM 10/03/17 Unknown History Calcium 500) multivitamin (Multiple Vitamins 1 ea PO DAILY 10/03/17 Unknown History tablet) diltiazem HCl 240 mg capsule,24 240 mg PO DAILY 12/08/24 Unknown History hr,extended release levofloxacin 500 mg tablet 500 mg PO DAILY #10 tabs 12/14/24 Unknown Rx Allergy/AdvReac Type Severity Reaction Status Date / Time amoxicillin Allergy Rash Verified 12/08/24 08:24 codeine Allergy Unknown Verified 12/08/24 08:24 ibuprofen Allergy Swelling Verified 12/08/24 08:24 Surgical History History of section Social History Smoking Status: Never smoker Vital Signs Vital Signs Vital Signs: Weight Weight: 117 lb Body Mass Index (BMI) 22.8 Physical Exam Const alert, oriented x3, no apparent distress, average body habitus and well nourished Constitutional Narrative: The patient's BMI is 22.8. General Appearance: cooperative, comfortable, well kempt and well developed Orientation / Consciousness: awake, oriented to person, oriented to place and oriented to time Exam Limitations: no limitations HEENT normocephalic and head/scalp atraumatic Head and Scalp: normal to inspection, normocephalic and atraumatic Face and Sinus: normal facial exam Nose: external nose normal External Ear: external ears normal Eyes EOMs intact bilaterally General Eye: normal appearance of both eyes Resp normal respiratory effort, normal air movement, no retractions and no use of accessory muscles Effort and Inspection: able to speak in complete sentences Extremity no calf tenderness Skin Wound Narrative: An open wound is noted on the patient's left pretibial surface. Mild periwound erythema is noted. The wound is full-thickness in nature, extending through all layers of the dermis and into the subcutaneous tissues. The wound has decreased in size, and dimensions are documented elsewhere. The wound demonstrates a moderate amount of bioburden and slough. There is no drainage or odor. Wound margins are not well beveled. Neuro oriented x3, CN's II-XII intact bilaterally, moves all extremities, no focal motor deficits and no sensory deficits noted Sensorium / Orientation: awake, alert, oriented to person, oriented to place and oriented to time Speech: speech normal Psych Appearance: grossly normal and appropriate Attitude: calm Activity / Motor Behavior: appropriate eye contact Speech: normal speech Mood & Affect: euthymic mood Thought Process: normal thought process Thought Content: normal thought content Attention / Concentration: attention grossly intact Debridement Note Debridement Note Wound debrided: Left pretibial traumatic wound Laterality: Left Type of Debridement: Excisional debridement Anesthesia Used: 5% Lidocaine Gel and Cetacaine Depth: in the subcutaneous layer Percentage of wound debrided: 100 Instrument Used: 3mm curette Tissue Removed: Bioburden and slough Severity: Fat Layer Exposed Amount of bleeding with debridement: Mild Bleeding Controlled with: Compression and gauze Patient tolerated procedure: Patient tolerated procedure well Post-Debridement Measurements and Additional Note: Post-Debridement Measurements/Treatment WC - Nurse 1 - General Ulcer Assessment Start: 07/15/25 08:10 Freq: Status: Active Protocol: WC.LOWEXT Activity Type Activity Date Activity User E-sign Co-sign Detail Recorded Client Recorded Date Recorded By Document 12/08/24 08:11 [facility] [id number] 12/08/24 08:22 [facility] Document 12/15/24 08:33 KW [id number] 12/15/24 08:45 KW Document 12/22/24 15:24 KW [id number] 12/22/24 15:27 KW 12/08/24 12/15/24 12/22/24 08:11 08:33 15:24 WC - Today's Visit Information Type of service Initial Visit Follow-up Visit Follow-up Visit (Physician/ELECTRONIC PREPRESS TECHNICIAN (Physician/ELECTRONIC PREPRESS TECHNICIAN ) ) Arrival Mode Ambulatory Ambulatory Ambulatory Transfer Assistance None Patient Identification Verified (Name & Yes Yes Yes ) Patient Requires Transmission-Based No Precautions Height and Weight Height 5 ft Weight 117 lb Weight in Pounds 117.0 lbs Weight Measurement Method Stated by Patient Body Mass Index (BMI) 22.8 22.8 22.8 BMI Classification Normal Normal Normal Vital Signs Temperature (97.8 F-99.1 F) 97.1 F L 97.4 F L 98.6 F Temperature Source Temporal Temporal Temporal Pulse Rate (60-100) 55 L 73 65 Pulse Location Monitor Monitor Monitor Respiratory Rate (12-18) 16 18 16 Respiratory rate source Observation Observation Observation Oxygen Delivery Method Room Air Room Air Room Air Blood Pressure (90/60-120/80) 146/81 H 146/63 H 126/65 H Blood Pressure Mean 102 90 85 Source Monitor Monitor Monitor Position Sitting Semi-Fowlers Semi-Fowlers Blood Pressure Location Left Arm Right Arm Right Forearm History Since Last Visit- (Skip if this is Patient's initial visit) Have you changed medications since your No No last visit? Any new allergies or adverse reactions No No Had a fall/change in ADL's that may No No increase risk of falls Signs or symptoms of abuse and/or No No neglect since last visit Have you been in the hospital since your No No last visit? Has dressing in place as prescribed Yes Yes Has compression in place as prescribed Yes Yes Has offloadiing in place as prescribed N/A N/A Experienced any changes in pain level or No No management Left Footwear Regular Shoe Regular Shoe Regular Shoe Right Footwear Regular Shoe Regular Shoe Regular Shoe Pain Scale: 0-10 Numeric Is Patient Pain Free? Yes Yes Yes Lower Extremity Assessment/ Foot Assessment/ Toe Nail Assessment Right -Posterior Tibial Doppler Monophasic -Dorsalis Pedis Doppler Monophasic -Extremity Color Pale -Hair Growth on Legs No -Hair Growth on Toes No -Thick No -Discolored No -Deformed No -Improper Length & Hygeine No Left -Posterior Tibial Doppler Monophasic -Dorsalis Pedis Palpable Yes -Dorsalis Pedis Doppler Monophasic -Extremity Color Pale -Hair Growth on Legs No -Hair Growth on Toes No -Thick No -Discolored No -Deformed No -Improper Length & Hygeine No Communication Assessment Preferred language Kitt[place] Able to Read Yes Able to Write Yes Communication Tools None Right Hearing Abillity Normal Left Hearing Abillity Normal Visual Assistive Devices Glasses Teaching Assessment Preferences Verbal,Written Barriers to Learning None Readiness To Learn Excellent Willingness to Engage in Self Management High Activies Readiness to Engage in Self Management High Activities Anxiety Level Calm Cooperation Cooperative Perception Coherent Interest in Health Problem Asks Questions Education Importance Acknowledges Need Does Patient Smoke tobacco or other No substances Smoking Status Never smoker Is Patient Diabetic No 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 Cultural/Rastafari Needs that may affect No Treatment Plan Teaching: Wound Center *Welcome to the Wound Center -Person Taught Patient -Teaching Method Discussion -Response to teaching Verbalize Understanding - Nurse 1 - General Ulcer Measurement Start: 12/08/24 08:10 Freq: Status: Active Protocol: Activity Type Activity Date Activity User E-sign Co-sign Detail Recorded Client Recorded Date Recorded By Document 12/08/24 08:11 [facility] [id number] 12/08/24 08:22 [facility] Document 12/15/24 08:33 [id number] 12/15/24 08:45 Document 12/22/24 15:24 KW [id number] 12/22/24 15:27 KW 12/08/24 12/15/24 12/22/24 08:11 08:33 15:24 Wound Center Nurse 1 #1- L MONTALVO -Combined with other wound No -Current Size (cm) - Length 0.5 0.6 0.2 -Current Size (cm) - Width 0.5 0.4 0.3 -Current Size (cm) - Depth 0.1 0.2 0.2 -Total Square Cm 0.25 0.24 0.06 -Date of Last Picture (Recall this 12/08/24 12/15/24 12/22/24 field) -Photo Taken Yes -Tunneling No -Undermining/Tunneling No -Circular Undermining No -Exudate Amt Medium Medium Small -Exudate Type Serosanguineous Serosanguineous Serosanguineous -Wound Margin Flat & Intact Distinct, Thickened Outline Attached -Granulation Amt None Present (0 Small (1-33%) Small (1-33%) %) -Granulation Quality [place] -Slough/Fibrin Yes -Necrosis Amt Large (67-100%) Large (67-100%) Medium (34-66%) -Necrotic Tissue Type Adherent Slough Adherent Slough Adherent Slough -Texture (Kari-wound Skin Appearance) Assessed, Assessed Assessed Scarring -Moisture (Kari-wound Skin Appearance) Assessed Assessed, Assessed Maceration -Color (Kari-wound Skin Appearance) Assessed Assessed Assessed -Temperature (Kari-wound Skin No Abnormality No Abnormality No Abnormality Appearance) (Pt Warm) (Pt Warm) (Pt Warm) -Tenderness on Palpation (Kari-wound No No No Skin Appearance) -Ulcer Cleansing Rinsed/ Soap and Water Rinsed/ Irrigated with Irrigated with Saline Saline -Foul Odor after Cleansing No No No -Anesthetic Used 5% Lidocaine 5% Lidocaine 5% Lidocaine Gel Gel Gel Right Calf (cm) 32.5 32.5 Right Ankle (cm) 18.6 18.5 Left Calf (cm) 32.2 31.8 Left Ankle (cm) 18.8 18.5 WC - Nurse 2 - General Ulcer CM Notes Start: 12/08/24 08:10 Freq: Status: Active Protocol: Activity Type Activity Date Activity User E-sign Co-sign Detail Recorded Client Recorded Date Recorded By Document 12/08/24 08:48 DS [id number] 12/08/24 08:55 DS Document 12/15/24 09:22 DS [id number] 12/15/24 09:26 DS Document 12/22/24 15:48 DS [id number] 12/22/24 15:51 DS 12/08/24 12/15/24 12/22/24 08:48 09:22 15:48 Wound Center Nurse 2 #1- L MONTALVO -Time 08:48 09:22 15:48 -Correct Patient Yes Yes Yes -Correct Side, Site, Position Yes Yes Yes -Correct Procedure Yes Yes Yes -Procedure Performed Yes Yes Yes -Type of Procedure Debridement Debridement Debridement -Clinical Debridement Subcutaneous Subcutaneous Subcutaneous -Tissue Removed Subcutaneous Subcutaneous Subcutaneous -Post Debridement (cm) - Length 0.8 0.6 0.5 -Post Debridement (cm) - Width 1.0 0.6 0.5 -Post Debridement (cm) - Depth 0.3 0.2 0.3 -Total Square (Post) (cm) 0.80 0.36 0.25 -Area of Debridement (cm) - Length 0.8 0.6 0.5 -Area of Debridement (cm) - Width 1.0 0.6 0.5 -Total Square (Area) (cm) 0.80 0.36 0.25 -Tunneling No No No -Undermining/Tunneling No No No -Circular Undermining No No No -Wound/Ulcer Outcome Not Healed Not Healed Not Healed -Ulcer Cleansing gauze gauze -Foul Odor after Cleansing No No No -Bioengineered Tissue No No No -Bleeding Controlled with Pressure Pressure Pressure -Treatment Response Procedure Procedure Procedure Tolerated Well Tolerated Well Tolerated Well -Debridement - Subq, 1st 20sq cm Yes Yes Yes Pain Scale: 0-10 Numeric Is Patient Pain Free? Yes Yes Yes - Nurse 3 - General Ulcer D/C NN Start: 12/08/24 08:10 Freq: Status: Active Protocol: Activity Type Activity Date Activity User E-sign Co-sign Detail Recorded Client Recorded Date Recorded By Document 12/08/24 11:32 BM [id number] 12/08/24 11:33 BM Document 12/15/24 09:36 BM [id number] 12/15/24 09:37 BMF Document 12/22/24 15:58 KW [id number] 12/22/24 15:58 KW Edit Result 12/22/24 15:58 KW (1) [id number] 12/22/24 16:04 BMF (1) #1- L MONTALVO - Promogran Sierra Matter 1 => 2 12/08/24 12/15/24 12/22/24 11:32 09:36 15:58 Wound Care Center Nurse 3 #1- L MONTALVO -Ulcer Cleansing Rinsed/ Rinsed/ Irrigated with Irrigated with Saline Saline -Foul Odor after Cleansing No No -Primary Dressing Applied C Hydrogel Promogran Sierra Matter -Other Dressing rx for santyl hydrogel -Primary Dressing Covered/Secured with Dry Gauze & Dry Gauze & Dry Gauze & Roll Gauze, Roll Gauze, Roll Gauze, Secured with Secured with Secured with Tape Tape Tape -Hydrogel 1 -Promogran Sierra Matter 2 -Wound Comment(s) hydrogel in clinic today Treatment Response Procedure Procedure Tolerated Well Tolerated Well Pain Scale: 0-10 Numeric Is Patient Pain Free? 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: CODE(S): L97.902 - Non-pressure chronic ulcer of unspecified part of unspecified lower leg with fat layer exposed QUALIFIERS: Laterality: left Qualified Code(s): L97.922 - Non-pressure chronic ulcer of unspecified part of left lower leg with fat layer exposed (2) Traumatic open wound of left lower leg: CODE(S): S81.802A - Unspecified open wound, left lower leg, initial encounter QUALIFIERS: Encounter type: subsequent encounter Qualified Code(s): S81.802D - Unspecified open wound, left lower leg, subsequent encounter (3) History of section: CODE(S): Z98.891 - History of uterine scar from previous surgery (4) Hypertension: CODE(S): I10 - Essential (primary) hypertension (5) Scleroderma: CODE(S): M34.9 - Systemic sclerosis, unspecified PLAN: Plan This is a 69-year-old female with a traumatic wound on the left pretibial surface. The injury occurred approximately 6 weeks prior to the patient's presentation. It failed to heal appropriately, and the patient has been treated by an urgent care center and her primary care physician with several courses of oral antibiotics. A swab culture on December 08, 2024, was positive for Proteus mirabilis and Corynebacterium amicolatum. In accordance with the sensitivity results, the patient was placed on Levaquin 500 mg p.o. daily for 10 days, which is nearly completed. The patient has been instructed to optimize her nutritional intake. She is not diabetic, and she does not smoke. The preponderance of the nonviable and necrotic tissue has been eliminated, so we are to transition to the use of moistened Sierra which will be applied topically on a daily basis. The patient has been instructed in the appropriate means of application. The patient has been encouraged to elevate her lower extremities is much as possible to prevent lower extremity swelling. She has been encouraged to wear her graduated compression stockings on a daily basis. Because of a high insurance co-pay, patient prefers to return in 2 weeks for reevaluation. Total time: 25 minutes
== END 2024-12-24 23:59 | disposition home or self-care (01) ==
LOC: WC 15:15
PROVIDERS: PCP Family Medicine; Visit Provider Surgery
DX: L97.822 Non-pressure chronic ulcer of other part of left lower leg with fat layer exposed (principal); M34.9 Systemic sclerosis, unspecified; I10 Essential (primary) hypertension; Z79.899 Other long term (current) drug therapy; S81.802D Unspecified open wound, left lower leg, subsequent encounter; W22.09XD Striking against other stationary object, subsequent encounter
CPT/HCPCS: 11042; 87070; 87075; 87077; 87186; 87205; 99213; G0463

== ENCOUNTER 2025-01-19 15:00 | Outpatient (RCR) | payer MEDICARE, SELFPAY ==
[2025-01-05 08:32] VITALS: BP 142/61; PULSE 82; RESP 16; TEMP 36.4
--- NOTE | 2025-01-05 12:11 | WC ---
PHOTO-LEFT MONTALVO 01/05/25
--- NOTE | 2025-01-05 12:13 | WC ---
PHOTO-LEFT MONTALVO 01/05/25
--- NOTE | 2025-01-06 14:10 | PCM.WC.HP ---
History of Present Illness Date of Service: 01/05/25 Chief Complaint: Traumatic left pretibial wound History of Wound: This is a 69-year-old female who sustained a traumatic injury to her left pretibial surface on October 31, 2024. The injury occurred while she was mowing her lawn on a riding mower, impacting her left lower leg against a swing set. The patient was seen in an urgent care center, where cultures were obtained and the patient was placed on doxycycline 100 mg p.o. twice daily for a total of 7 days. The cultures were subsequently positive for a coagulase-negative Staphylococcus species, sensitive to doxycycline. On November 20, 2024, the patient was seen by her primary care physician, who prescribed cephalexin orally. The patient had been using Aquaphor topically and a Band-Aid. The patient is retired. She admits to late-day swelling in her lower extremities. The patient sleeps on a flat mattress at night. She is not a smoker. She is not diabetic. 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 Traumatic open wound of left lower leg Hypertension Home Medications ?Medication ?Instructions ?Recorded ?Last Taken ?Type benazepril 20 1 ea PO DAILY 10/03/17 Unknown History mg-hydrochlorothiazide 12.5 mg tablet (Lotensin HCT) calcium carbonate (Oyster Shell 500 mg PO BIDCM 10/03/17 Unknown History Calcium 500) multivitamin (Multiple Vitamins 1 ea PO DAILY 10/03/17 Unknown History tablet) diltiazem HCl 240 mg capsule,24 240 mg PO DAILY 12/08/24 Unknown History hr,extended release levofloxacin 500 mg tablet 500 mg PO DAILY #10 tabs 12/14/24 Unknown Rx Allergy/AdvReac Type Severity Reaction Status Date / Time amoxicillin Allergy Rash Verified 12/08/24 08:24 codeine Allergy Unknown Verified 12/08/24 08:24 ibuprofen Allergy Swelling Verified 12/08/24 08:24 Surgical History History of section Social History Smoking Status: Never smoker Physical Exam Const alert, oriented x3, no apparent distress, average body habitus and well nourished Constitutional Narrative: The patient's BMI is 22.8. General Appearance: cooperative, comfortable, well kempt and well developed Orientation / Consciousness: awake, oriented to person, oriented to place and oriented to time Exam Limitations: no limitations HEENT normocephalic and head/scalp atraumatic Head and Scalp: normal to inspection, normocephalic and atraumatic Face and Sinus: normal facial exam Nose: external nose normal External Ear: external ears normal Eyes EOMs intact bilaterally General Eye: normal appearance of both eyes Resp normal respiratory effort, normal air movement, no retractions and no use of accessory muscles Effort and Inspection: able to speak in complete sentences Extremity no calf tenderness Skin Wound Narrative: An open wound is noted on the patient's left pretibial surface. Mild periwound erythema is noted. The wound is full-thickness in nature, extending through all layers of the dermis and into the subcutaneous tissues. The wound has decreased in size, and dimensions are documented elsewhere. The wound demonstrates a moderate amount of bioburden and slough. It appears somewhat desiccated. There is no drainage or odor. Wound margins are moderately beveled. Scattered varicosities are noted in the patient's lower extremities. 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 Neuro oriented x3, CN's II-XII intact bilaterally, moves all extremities, no focal motor deficits and no sensory deficits noted Sensorium / Orientation: awake, alert, oriented to person, oriented to place and oriented to time Speech: speech normal Psych Appearance: grossly normal and appropriate Attitude: calm Activity / Motor Behavior: appropriate eye contact Speech: normal speech Mood & Affect: euthymic mood Thought Process: normal thought process Thought Content: normal thought content Attention / Concentration: attention grossly intact Debridement Note Debridement Note Wound debrided: Left pretibial traumatic wound Laterality: Left Type of Debridement: Excisional debridement Anesthesia Used: 5% Lidocaine Gel Depth: in the subcutaneous layer Percentage of wound debrided: 100 Instrument Used: 3mm curette Tissue Removed: Bioburden and slough Severity: Fat Layer Exposed Amount of bleeding with debridement: Mild Bleeding Controlled with: Compression and gauze Patient tolerated procedure: Patient tolerated procedure well Post-Debridement Measurements and Additional Note: Post-Debridement Measurements/Treatment WC - Nurse 1 - General Ulcer Assessment Start: 01/05/25 08:32 Freq: Status: Active Protocol: CATHYEXJanelle Activity Type Activity Date Activity User E-sign Co-sign Detail Recorded Client Recorded Date Recorded By Document 01/05/25 08:32 [facility] [id number] 01/05/25 08:37 [facility] 01/05/25 08:32 - Today's Visit Information Type of service Follow-up Visit (Physician/A OPERATOR ) Arrival Mode Ambulatory Transfer Assistance None Patient Identification Verified (Name & Yes ) Patient Requires Transmission-Based No Precautions Vital Signs Temperature (97.8 F-99.1 F) 97.5 F L Temperature Source Temporal Pulse Rate (60-100) 82 Pulse Location Monitor Respiratory Rate (12-18) 16 Respiratory rate source Observation Oxygen Delivery Method Room Air Blood Pressure (90/60-120/80) 142/61 H Blood Pressure Mean 88 Source Monitor Position Sitting Blood Pressure Location Left Arm History Since Last Visit- (Skip if this is Patient's initial visit) Have you changed medications since your No last visit? Any new allergies or adverse reactions No Had a fall/change in ADL's that may No increase risk of falls Signs or symptoms of abuse and/or No neglect since last visit Have you been in the hospital since your No last visit? Has dressing in place as prescribed Yes Has compression in place as prescribed N/A Has offloadiing in place as prescribed N/A Experienced any changes in pain level or No management Left Footwear Regular Shoe Right Footwear Regular Shoe Pain Scale: 0-10 Numeric Is Patient Pain Free? Yes - Nurse 1 - General Ulcer Measurement Start: 01/05/25 08:32 Freq: Status: Active Protocol: Activity Type Activity Date Activity User E-sign Co-sign Detail Recorded Client Recorded Date Recorded By Document 01/05/25 08:32 [facility] [id number] 01/05/25 08:37 [facility] 01/05/25 08:32 Wound Center Nurse 1 #1- L MONTALVO -Current Size (cm) - Length 0.5 -Current Size (cm) - Width 0.3 -Current Size (cm) - Depth 0.1 -Total Square Cm 0.15 -Date of Last Picture (Recall this 01/05/25 field) -Photo Taken Yes -Tunneling No -Undermining/Tunneling No -Circular Undermining No -Exudate Amt Medium -Exudate Type Serous -Wound Margin Distinct, Outline Attached -Granulation Amt None Present (0 %) -Slough/Fibrin Yes -Necrosis Amt Large (67-100%) -Necrotic Tissue Type Adherent Slough -Texture (Kari-wound Skin Appearance) Assessed, Scarring -Moisture (Kari-wound Skin Appearance) Assessed -Color (Kari-wound Skin Appearance) Assessed -Temperature (Kari-wound Skin No Abnormality Appearance) (Pt Warm) -Tenderness on Palpation (Kari-wound No Skin Appearance) -Ulcer Cleansing Rinsed/ Irrigated with Saline -Foul Odor after Cleansing No -Anesthetic Used 5% Lidocaine Gel - Nurse 2 - General Ulcer CM Notes Start: 01/05/25 08:32 Freq: Status: Active Protocol: Activity Type Activity Date Activity User E-sign Co-sign Detail Recorded Client Recorded Date Recorded By Document 01/05/25 08:55 ARGENIS [id number] 01/05/25 08:58 ARGENIS 01/05/25 08:55 Wound Center Nurse 2 -Time 08:55 -Correct Patient Yes -Correct Side, Site, Position Yes -Correct Procedure Yes -Procedure Performed Yes -Type of Procedure Debridement -Clinical Debridement Subcutaneous -Tissue Removed Subcutaneous -Post Debridement (cm) - Length 0.4 -Post Debridement (cm) - Width 0.4 -Post Debridement (cm) - Depth 0.2 -Total Square (Post) (cm) 0.16 -Area of Debridement (cm) - Length 0.4 -Area of Debridement (cm) - Width 0.4 -Total Square (Area) (cm) 0.16 -Tunneling No -Undermining/Tunneling No -Circular Undermining No -Wound/Ulcer Outcome Not Healed -Ulcer Cleansing Rinsed/ Irrigated with Saline -Foul Odor after Cleansing No -Bioengineered Tissue No -Bleeding Controlled with Pressure -Treatment Response Procedure Tolerated Well -Offloading No -Debridement - Subq, 1st 20sq cm Yes Pain Scale: 0-10 Numeric Is Patient Pain Free? Yes - Nurse 3 - General Ulcer D/C NN Start: 01/05/25 08:32 Freq: Status: Active Protocol: Activity Type Activity Date Activity User E-sign Co-sign Detail Recorded Client Recorded Date Recorded By Document 01/05/25 09:04 KW [id number] 01/05/25 09:04 KW 01/05/25 09:04 Wound Care Center Nurse 3 #1- L MONTALVO -Primary Dressing Applied C Hydrogel, NonAdherent Contact Layer -Primary Dressing Covered/Secured with Dry Gauze & Roll Gauze, Secured with Tape -Hydrogel 1 Pain Scale: 0-10 Numeric Is Patient Pain Free? 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: CODE(S): L97.902 - Non-pressure chronic ulcer of unspecified part of unspecified lower leg with fat layer exposed QUALIFIERS: Laterality: left Qualified Code(s): L97.922 - Non-pressure chronic ulcer of unspecified part of left lower leg with fat layer exposed (2) Traumatic open wound of left lower leg: CODE(S): S81.802A - Unspecified open wound, left lower leg, initial encounter QUALIFIERS: Encounter type: subsequent encounter Qualified Code(s): S81.802D - Unspecified open wound, left lower leg, subsequent encounter (3) History of section: CODE(S): Z98.891 - History of uterine scar from previous surgery (4) Hypertension: CODE(S): I10 - Essential (primary) hypertension (5) Scleroderma: CODE(S): M34.9 - Systemic sclerosis, unspecified PLAN: Plan This is a 69-year-old female with a traumatic wound on the left pretibial surface. The injury occurred approximately 6 weeks prior to the patient's presentation. It failed to heal appropriately, and the patient had been treated by an urgent care center and her primary care physician with several courses of oral antibiotics. A swab culture on December 08, 2024, was positive for Proteus mirabilis and Corynebacterium amicolatum. In accordance with the sensitivity results, the patient was placed on Levaquin 500 mg p.o. daily for 10 days, which has been completed. The patient has been instructed to optimize her nutritional intake. She is not diabetic, and she does not smoke. Due to the desiccated appearance of the small, remaining wound, we are to transition to the use of collagen hydrogel, which will be applied by the patient on a daily basis. The patient has been instructed in the appropriate means of application. The patient has been encouraged to elevate her lower extremities as much as possible to prevent lower extremity swelling. She has been encouraged to wear her graduated compression stockings on a daily basis. A prescription has been provided for graduated compression stockings of 20 to 30 mmHg compression, knee-high length. Because of a high insurance co-pay, the patient prefers to return in 2 weeks for reevaluation. Total time: 24 minutes
[2025-01-19 14:59] VITALS: BP 119/49; PULSE 70; TEMP 36.6
--- NOTE | 2025-01-20 14:00 | WC ---
PHOTO-LEFT MONTALVO 01/19/25
--- NOTE | 2025-01-20 14:02 | WC ---
PHOTO-LEFT MONTALVO 01/19/25
--- NOTE | 2025-01-24 18:40 | HP.PCM_ITS ---
History of Present Illness Date of Service: 01/19/25 Chief Complaint: Traumatic left pretibial wound History of Wound: This is a 69-year-old female who sustained a traumatic injury to her left pretibial surface on October 31, 2024. The injury occurred while she was mowing her lawn on a riding mower, impacting her left lower leg against a swing set. The patient was seen in an urgent care center, where cultures were obtained and the patient was placed on doxycycline 100 mg p.o. twice daily for a total of 7 days. The cultures were subsequently positive for a coagulase- negative Staphylococcus species, sensitive to doxycycline. On November 20, 2024, the patient was seen by her primary care physician, who prescribed cephalexin orally. The patient had been using Aquaphor topically and a Band-Aid. The patient is retired. She admits to late-day swelling in her lower extremities. The patient sleeps on a flat mattress at night. She is not a smoker. She is not diabetic. 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 Traumatic open wound of left lower leg Hypertension Home Medications ?Medication ?Instructions ?Recorded ?Last Taken ?Type benazepril 20 1 ea PO DAILY 10/03/17 Unkno wn History mg-hydrochlorothiazide 12.5 mg tablet (Lotensin HCT) calcium carbonate (Oyster Shell 500 mg PO BIDCM Unknown History Calcium 500) multivitamin (Multiple Vitamins 1 ea PO DAILY 10/03/17 Unknown History tablet) diltiazem HCl 240 mg capsule,24 240 mg PO DAILY Unknown History hr,extended release levofloxacin 500 mg tablet 500 mg PO DAILY #10 tabs Unknown Rx Allergy/AdvReac Type Severity Reaction Status Date / Time amoxicillin Allergy Rash Verified 12/08/24 08:24 codeine Allergy Unknown Verified 12/08/24 08:24 ibuprofen Allergy Swelling Verified 12/08/24 08:24 Surgical History History of section Social History Smoking Status: Never smoker Physical Exam Const alert, oriented x3, no apparent distress, average body habitus and well nourished Constitutional Narrative: The patient's BMI is 22.8. General Appearance: cooperative, comfortable, well kempt and well developed Orientation / Consciousness: awake, oriented to person, oriented to place and oriented to time Exam Limitations: no limitations HEENT normocephalic and head/scalp atraumatic Head and Scalp: normal to inspection, normocephalic and atraumatic Face and Sinus: normal facial exam Nose: external nose normal External Ear: external ears normal Eyes EOMs intact bilaterally General Eye: normal appearance of both eyes Resp normal respiratory effort, normal air movement, no retractions and no use of accessory muscles Effort and Inspection: able to speak in complete sentences Extremity no calf tenderness Skin Wound Narrative: An open wound is noted on the patient's left pretibial surface. The wound is full-thickness in nature, extending through all layers of the dermis and into the subcutaneous tissues. The wound has decreased in size, and dimensions are documented elsewhere. There is a small amount of bioburden and slough. [place], healthy granulation tissue is also noted. There is no drainage or odor. Wound margins are well beveled. Scattered varicosities are noted in the patient's lower extremities. 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 Neuro oriented x3, CN's II-XII intact bilaterally, moves all extremities, no focal motor deficits and no sensory deficits noted Sensorium / Orientation: awake, alert, oriented to person, oriented to place and oriented to time Speech: speech normal Psych Appearance: grossly normal and appropriate Attitude: calm Activity / Motor Behavior: appropriate eye contact Speech: normal speech Mood & Affect: euthymic mood Thought Process: normal thought process Thought Content: normal thought content Attention / Concentration: attention grossly intact Debridement Note Debridement Note Wound debrided: Left pretibial traumatic wound Laterality: Left Type of Debridement: Excisional debridement Anesthesia Used: 5% Lidocaine Gel Depth: in the subcutaneous layer Percentage of wound debrided: 100 Instrument Used: 3mm curette Tissue Removed: Bioburden and slough Severity: Fat Layer Exposed Amount of bleeding with debridement: Mild Bleeding Controlled with: Compression and gauze Patient tolerated procedure: Patient tolerated procedure well Post-Debridement Measurements and Additional Note: Post-Debridement Measurements/Treatment WC - Nurse 1 - General Ulcer Assessment Start: 01/05/25 08:32 Freq: Status: Active Protocol: ARTURO Activity Type Activity Date Activity User E-sign Co-sign Detail Recorded Client Recorded Date Recorded By Document 01/05/25 08:32 [facility] [id number] 01/05/25 08:37 [facility] Document 01/19/25 14:59 [facility] [id number] 01/19/25 15:05 [facility] 01/05/25 01/19/25 08:32 14:59 - Today's Visit Information Type of service Follow-up Visit Follow-up Visit (Physician/ORDER TAKERS SUPERVISOR (Physician/ORDER TAKERS SUPERVISOR ) ) Arrival Mode Ambulatory Ambulatory Transfer Assistance None None Patient Identification Verified (Name & Yes Yes ) Patient Requires Transmission-Based No No Precautions Vital Signs Temperature (97.8 F-99.1 F) 97.5 F L 98 F Temperature Source Temporal Temporal Pulse Rate (60-100) 82 70 Pulse Location Monitor Monitor Respiratory Rate (12-18) 16 Respiratory rate source Observation Oxygen Delivery Method Room Air Blood Pressure (90/60-120/80) 142/61 H 119/49 L Blood Pressure Mean 88 72 Source Monitor Monitor Position Sitting Sitting Blood Pressure Location Left Arm History Since Last Visit- (Skip if this is Patient's initial visit) Have you changed medications since your No No last visit? Any new allergies or adverse reactions No No Had a fall/change in ADL's that may No No increase risk of falls Signs or symptoms of abuse and/or No No neglect since last visit Have you been in the hospital since your No No last visit? Has dressing in place as prescribed Yes Yes Has compression in place as prescribed N/A Yes Has offloadiing in place as prescribed N/A N/A Experienced any changes in pain level or No No management Left Footwear Regular Shoe Regular Shoe Right Footwear Regular Shoe Regular Shoe Pain Scale: 0-10 Numeric Is Patient Pain Free? Yes Yes - Nurse 1 - General Ulcer Measurement Start: 01/05/25 08:32 Freq: Status: Active Protocol: Activity Type Activity Date Activity User E-sign Co-sign Detail Recorded Client Recorded Date Recorded By Document 01/05/25 08:32 [facility] [id number] 01/05/25 08:37 [facility] Document 01/19/25 14:59 [facility] [id number] 01/19/25 15:05 [facility] 01/05/25 01/19/25 08:32 14:59 Wound Center Nurse 1 #1- L MONTALVO -Combined with other wound No -Current Size (cm) - Length 0.5 0.1 -Current Size (cm) - Width 0.3 0.1 -Current Size (cm) - Depth 0.1 0.1 -Total Square Cm 0.15 0.01 -Date of Last Picture (Recall this 01/05/25 01/19/25 field) -Photo Taken Yes Yes -Epithelialization Large 67-100% -Tunneling No -Undermining/Tunneling No -Circular Undermining No -Exudate Amt Medium -Exudate Type Serous -Wound Margin Distinct, Outline Attached -Granulation Amt None Present (0 %) -Slough/Fibrin Yes -Necrosis Amt Large (67-100%) -Necrotic Tissue Type Adherent Slough -Texture (Kari-wound Skin Appearance) Assessed, Assessed Scarring -Moisture (Kari-wound Skin Appearance) Assessed Assessed,Dry/ Scaly -Color (Kari-wound Skin Appearance) Assessed Assessed -Temperature (Kari-wound Skin No Abnormality No Abnormality Appearance) (Pt Warm) (Pt Warm) -Tenderness on Palpation (Kari-wound No No Skin Appearance) -Ulcer Cleansing Rinsed/ Rinsed/ Irrigated with Irrigated with Saline Saline -Foul Odor after Cleansing No No -Anesthetic Used 5% Lidocaine 5% Lidocaine Gel Gel WC - Nurse 2 - General Ulcer CM Notes Start: 01/05/25 08:32 Freq: Status: Active Protocol: Activity Type Activity Date Activity User E-sign Co-sign Detail Recorded Client Recorded Date Recorded By Document 01/05/25 08:55 [id number] 01/05/25 08:58 Document 01/19/25 15:17 DS [id number] 01/19/25 15:18 DS 01/05/25 01/19/25 08:55 15:17 Wound Center Nurse 2 #1- L MONTALVO -Time 08:55 15:17 -Correct Patient Yes Yes -Correct Side, Site, Position Yes Yes -Correct Procedure Yes Yes -Procedure Performed Yes Yes -Type of Procedure Debridement Debridement -Clinical Debridement Subcutaneous Subcutaneous -Tissue Removed Subcutaneous Subcutaneous -Post Debridement (cm) - Length 0.4 0.3 -Post Debridement (cm) - Width 0.4 0.3 -Post Debridement (cm) - Depth 0.2 0.2 -Total Square (Post) (cm) 0.16 0.09 -Area of Debridement (cm) - Length 0.4 0.3 -Area of Debridement (cm) - Width 0.4 0.3 -Total Square (Area) (cm) 0.16 0.09 -Tunneling No No -Undermining/Tunneling No No -Circular Undermining No No -Wound/Ulcer Outcome Not Healed Not Healed -Ulcer Cleansing Rinsed/ gauze Irrigated with Saline -Foul Odor after Cleansing No No -Bioengineered Tissue No No -Bleeding Controlled with Pressure Pressure -Treatment Response Procedure Procedure Tolerated Well Tolerated Well -Offloading No -Debridement - Subq, 1st 20sq cm Yes Yes Pain Scale: 0-10 Numeric Is Patient Pain Free? Yes Yes - Nurse 3 - General Ulcer D/C NN Start: 01/05/25 08:32 Freq: Status: Active Protocol: Activity Type Activity Date Activity User E-sign Co-sign Detail Recorded Client Recorded Date Recorded By Document 01/05/25 09:04 [id number] 01/05/25 09:04 Document 01/19/25 15:19 [id number] 01/19/25 15:20 01/05/25 01/19/25 09:04 15:19 Wound Care Center Nurse 3 #1- L MONTALVO -Primary Dressing Applied C Hydrogel, NonAdherent NonAdherent Contact Layer Contact Layer -Other Dressing hydrogel with adaptic -Primary Dressing Covered/Secured with Dry Gauze & Dry Gauze & Roll Gauze, Roll Gauze, Secured with Secured with Tape Tape -Hydrogel 1 BLE -Other pt own compression stocking Pain Scale: 0-10 Numeric Is Patient Pain Free? 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: CODE(S): L97.902 - Non-pressure chronic ulcer of unspecified part of unspecified lower leg with fat layer exposed QUALIFIERS: Laterality: left Qualified Code(s): L97.922 - Non- pressure chronic ulcer of unspecified part of left lower leg with fat layer exposed (2) Traumatic open wound of left lower leg: CODE(S): S81.802A - Unspecified open wound, left lower leg, initial encounter QUALIFIERS: Encounter type: subsequent encounter Qualified Code(s): S81.802D - Unspecified open wound, left lower leg, subsequent encounter (3) History of section: CODE(S): Z98.891 - History of uterine scar from previous surgery (4) Hypertension: CODE(S): I10 - Essential (primary) hypertension (5) Scleroderma: CODE(S): M34.9 - Systemic sclerosis, unspecified PLAN: Plan This is a 69-year-old female with a traumatic wound on the left pretibial surface. The injury occurred approximately 6 weeks prior to the patient's presentation. It failed to heal appropriately, and the patient had been treated by an urgent care center and her primary care physician with several courses of oral antibiotics. A swab culture on December 08, 2024, was positive for Proteus mirabilis and Corynebacterium amicolatum. In accordance with the sensitivity results, the patient was placed on Levaquin 500 mg p.o. daily for 10 days, which was completed. The patient has been instructed to optimize her nutritional intake. She is not diabetic, and she does not smoke. We are to continue the use of collagen hydrogel, which will be applied by the patient on a daily basis. The patient has been instructed in the appropriate means of application. The patient has been encouraged to elevate her lower extremities as much as possible to prevent lower extremity swelling. She has been encouraged to wear her graduated compression stockings on a daily basis. A prescription has been provided for graduated compression stockings of 20 to 30 mmHg compression, knee- high length. Because of a high insurance co-pay, the patient prefers to return in 2 weeks for reevaluation. Total time: 22 minutes
== END 2025-01-24 23:59 | disposition home or self-care (01) ==
LOC: WC 15:00
PROVIDERS: PCP Family Medicine; Visit Provider Surgery
DX: L97.822 Non-pressure chronic ulcer of other part of left lower leg with fat layer exposed (principal); M34.9 Systemic sclerosis, unspecified; I10 Essential (primary) hypertension; Z79.899 Other long term (current) drug therapy; M79.89 Other specified soft tissue disorders; S81.802D Unspecified open wound, left lower leg, subsequent encounter; W22.09XD Striking against other stationary object, subsequent encounter
CPT/HCPCS: 11042

== ENCOUNTER 2025-02-02 15:06 | Outpatient (RCR) | payer MEDICARE, SELFPAY ==
[2025-02-02 15:11] VITALS: BP 138/64; PULSE 65; RESP 18; TEMP 36.2
--- NOTE | 2025-02-03 09:45 | WC ---
PHOTO-LEFT MONTALVO 02/02/25
--- NOTE | 2025-02-04 12:59 | HP.PCM_ITS ---
History of Present Illness Date of Service: 02/02/25 Chief Complaint: Traumatic left pretibial wound History of Wound: This is a 69-year-old female who sustained a traumatic injury to her left pretibial surface on October 31, 2024. The injury occurred while she was mowing her lawn on a riding mower, impacting her left lower leg against a swing set. The patient was seen in an urgent care center, where cultures were obtained and the patient was placed on doxycycline 100 mg p.o. twice daily for a total of 7 days. The cultures were subsequently positive for a coagulase- negative Staphylococcus species, sensitive to doxycycline. On November 20, 2024, the patient was seen by her primary care physician, who prescribed cephalexin orally. The patient had been using Aquaphor topically and a Band-Aid. The patient is retired. She admits to late-day swelling in her lower extremities. The patient sleeps on a flat mattress at night. She is not a smoker. She is not diabetic. 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 Traumatic open wound of left lower leg Hypertension Home Medications ?Medication ?Instructions ?Recorded ?Last Taken ?Type benazepril 20 1 ea PO DAILY 10/03/17 Unkno wn History mg-hydrochlorothiazide 12.5 mg tablet (Lotensin HCT) calcium carbonate (Oyster Shell 500 mg PO BIDCM Unknown History Calcium 500) multivitamin (Multiple Vitamins 1 ea PO DAILY 10/03/17 Unknown History tablet) diltiazem HCl 240 mg capsule,24 240 mg PO DAILY Unknown History hr,extended release levofloxacin 500 mg tablet 500 mg PO DAILY #10 tabs Unknown Rx Allergy/AdvReac Type Severity Reaction Status Date / Time amoxicillin Allergy Rash Verified 12/08/24 08:24 codeine Allergy Unknown Verified 12/08/24 08:24 ibuprofen Allergy Swelling Verified 12/08/24 08:24 Surgical History History of section Social History Smoking Status: Never smoker Physical Exam Const alert, oriented x3, no apparent distress, average body habitus and well nourished Constitutional Narrative: The patient's BMI is 22.8. General Appearance: cooperative, comfortable, well kempt and well developed Orientation / Consciousness: awake, oriented to person, oriented to place and oriented to time Exam Limitations: no limitations HEENT normocephalic and head/scalp atraumatic Head and Scalp: normal to inspection, normocephalic and atraumatic Face and Sinus: normal facial exam Nose: external nose normal External Ear: external ears normal Eyes EOMs intact bilaterally General Eye: normal appearance of both eyes Resp normal respiratory effort, normal air movement, no retractions and no use of accessory muscles Effort and Inspection: able to speak in complete sentences Extremity no calf tenderness Skin Wound Narrative: The open wound on the patient's left pretibial surface is now completely healed and epithelialized. There is no sign of infection or cellulitis. Scattered varicosities are noted in the patient's lower extremities. 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 Neuro oriented x3, CN's II-XII intact bilaterally, moves all extremities, no focal motor deficits and no sensory deficits noted Sensorium / Orientation: awake, alert, oriented to person, oriented to place and oriented to time Speech: speech normal Psych Appearance: grossly normal and appropriate Attitude: calm Activity / Motor Behavior: appropriate eye contact Speech: normal speech Mood & Affect: euthymic mood Thought Process: normal thought process Thought Content: normal thought content Attention / Concentration: attention grossly intact Debridement Note Debridement Note No debridement was completed: No debridement was completed today (There are no open wounds or ulcerations.) Post-Debridement Measurements and Additional Note: Post-Debridement Measurements/Treatment [facility] Nurse 1 - General Ulcer Assessment Start: 02/02/25 15:10 Freq: Status: Active Protocol: RONNELL.[email or web address] Activity Type Activity Date Activity User E-sign Co-sign Detail Recorded Client Recorded Date Recorded By Document 02/02/25 15:11 [id number] 02/02/25 15:15 02/02/25 15:11 - Today's Visit Information Type of service Follow-up Visit (Physician/MERCHANDISING REPRESENTATIVE ) Arrival Mode Ambulatory Patient Identification Verified (Name & Yes ) Vital Signs Temperature (97.8 F-99.1 F) 97.1 F L Temperature Source Temporal Pulse Rate (60-100) 65 Pulse Location Monitor Respiratory Rate (12-18) 18 Respiratory rate source Observation Oxygen Delivery Method Room Air Blood Pressure (90/60-120/80) 138/64 H Blood Pressure Mean 88 Source Monitor Position Sitting Blood Pressure Location Left Arm History Since Last Visit- (Skip if this is Patient's initial visit) Have you changed medications since your No last visit? Any new allergies or adverse reactions No Had a fall/change in ADL's that may No increase risk of falls Signs or symptoms of abuse and/or No neglect since last visit Have you been in the hospital since your No last visit? Has dressing in place as prescribed No Has compression in place as prescribed No Has offloadiing in place as prescribed N/A Experienced any changes in pain level or No management Left Footwear Regular Shoe Right Footwear Regular Shoe Pain Scale: 0-10 Numeric Is Patient Pain Free? Yes WC - Nurse 1 - General Ulcer Measurement Start: 02/02/25 15:10 Freq: Status: Active Protocol: Activity Type Activity Date Activity User E-sign Co-sign Detail Recorded Client Recorded Date Recorded By Document 02/02/25 15:11 KW [id number] 02/02/25 15:15 KW 02/02/25 15:11 Wound Center Nurse 1 #1- L MONTALVO -Current Size (cm) - Length 0.1 -Current Size (cm) - Width 0.1 -Current Size (cm) - Depth 0 -Total Square Cm 0.01 -Date of Last Picture (Recall this 02/02/25 field) -Epithelialization Large 67-100% -Exudate Amt None Present -Texture (Kari-wound Skin Appearance) Assessed -Moisture (Kari-wound Skin Appearance) Assessed -Color (Kari-wound Skin Appearance) Assessed -Temperature (Kari-wound Skin No Abnormality Appearance) (Pt Warm) -Tenderness on Palpation (Kari-wound No Skin Appearance) -Ulcer Cleansing Rinsed/ Irrigated with Saline -Foul Odor after Cleansing No WC - Nurse 2 - General Ulcer CM Notes Start: 02/02/25 15:10 Freq: Status: Active Protocol: Activity Type Activity Date Activity User E-sign Co-sign Detail Recorded Client Recorded Date Recorded By Document 02/02/25 15:31 DS [id number] 02/02/25 15:31 DS 02/02/25 15:31 Wound Center Nurse 2 -Time 15:31 -Correct Patient Yes -Correct Side, Site, Position Yes -Procedure Performed No -Wound/Ulcer Outcome Healed- Epithelialized Pain Scale: 0-10 Numeric Is Patient Pain Free? Yes WC - Nurse 3 - General Ulcer D/C NN Start: 02/02/25 15:10 Freq: Status: Active Protocol: Activity Type Activity Date Activity User E-sign Co-sign Detail Recorded Client Recorded Date Recorded By Document 02/02/25 15:32 DS [id number] 02/02/25 15:33 DS 02/02/25 15:32 Wound Care Center Nurse 3 #1- L MONTALVO -Primary Dressing Covered/Secured with Dry Gauze, Secured with Tape Pain Scale: 0-10 Numeric Is Patient Pain Free? 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: CODE(S): L97.902 - Non-pressure chronic ulcer of unspecified part of unspecified lower leg with fat layer exposed QUALIFIERS: Laterality: left Qualified Code(s): L97.922 - Non- pressure chronic ulcer of unspecified part of left lower leg with fat layer exposed (2) Traumatic open wound of left lower leg: CODE(S): S81.802A - Unspecified open wound, left lower leg, initial encounter QUALIFIERS: Encounter type: subsequent encounter Qualified Code(s): S81.802D - Unspecified open wound, left lower leg, subsequent encounter (3) History of section: CODE(S): Z98.891 - History of uterine scar from previous surgery (4) Hypertension: CODE(S): I10 - Essential (primary) hypertension (5) Scleroderma: CODE(S): M34.9 - Systemic sclerosis, unspecified PLAN: Plan This is a 69-year-old female who presented with a traumatic wound on the left pretibial surface. The injury occurred approximately 6 weeks prior to the patient's presentation. It failed to heal appropriately, and the patient had been treated by an urgent care center and her primary care physician with several courses of oral antibiotics. A swab culture on December 08, 2024, was positive for Proteus mirabilis and Corynebacterium amicolatum. In accordance with the sensitivity results, the patient was placed on Levaquin 500 mg p.o. daily for 10 days, which was completed. The patient has been instructed to optimize her nutritional intake. She is not diabetic, and she does not smoke. As of today's visit, the patient's wound is now completely healed and epithelialized. Therefore, the patient is to be discharged, and will follow-up henceforth on an as needed basis. She has been instructed to pad and protect the area for 7 to 14 days to prevent inadvertent trauma to the area. The patient has been encouraged to wear her graduated compression stockings on a daily basis. Total time: 22 minutes
== END 2025-02-23 15:47 | disposition home or self-care (01) ==
LOC: WC 15:06
PROVIDERS: PCP Family Medicine; Visit Provider Surgery
DX: Z09 Encounter for follow-up examination after completed treatment for conditions other than malignant neoplasm (principal); M34.9 Systemic sclerosis, unspecified; Z79.899 Other long term (current) drug therapy; I10 Essential (primary) hypertension
CPT/HCPCS: 99213; G0463

== ENCOUNTER → 2025-04-30 | Outpatient (CLI) | payer MEDICARE, SELFPAY ==
[2025-04-30 12:31] LABS: Hematocrit 40.8 % (37-47); Hemoglobin 12.8 g/dL (12.0-15.0); Immature Granulocytes Count 0.040 X10^3/uL (0.0-0.0); Mean Corp Hgb Conc 31.4 g/dL (32-36); Mean Corpuscular Volume 87.4 fL (81-99); Mean Platelet Vol. 10.7 fl (6.2-12.0); NRBC Flagged by Analyzer 0 % (0-5); Platelet Count 223 K/mm3 (150-450); RBC Distribution Width CV 14.3 % (11.6-14.6); RBC Distribution Width SD 46.0 fl (35.1-43.9); Red Blood Count 4.67 M/mm3 (4.2-5.4); White Blood Count 9.2 K/mm3 (4.4-11.0)
[2025-04-30 13:11] LABS: AST(SGOT) 15 U/L (<=31); Alanine Aminotransfer ALT/SGPT 11 U/L (<=34); Albumin, Serum 4.1 g/dL (3.4-4.8); Alkaline Phosphatase 87 U/L (35-104); Anion Gap 12 (5-15); BUN 20 mg/dL (4-19); BUN/Creat Ratio 24.8 RATIO (10-20); Calcium,Total 9.1 mg/dL (7.6-11.0); Carbon Dioxide 23.8 mmol/L (21.0-32.0); Chloride 105 mmol/L (98-108); Globulin 2.9 g/dL (2.2-4.2); Glucose 99 mg/dL (70-99); Potassium 4.4 mmol/L (3.3-5.1)
== END | disposition home or self-care (01) ==
LOC: MTLAB 10:18
PROVIDERS: PCP Student in an Organized Health Care Education/Training Program; Referring Provider Internal Medicine Rheumatology; Visit Provider Internal Medicine Rheumatology
DX: M34.9 Systemic sclerosis, unspecified (principal); R76.81 Abnormal rheumatoid factor and anti-citrullinated protein antibody without rheumatoid arthritis; M19.041 Primary osteoarthritis, right hand
CPT/HCPCS: 36415; 80053; 85025